=== PATIENT | male | born 1935 | race Caucasian/White ===

== ENCOUNTER 2016-10-14 05:49 | Inpatient (IN) | payer MEDICARE, OTHER ==
[2016-10-14] MEDS ORDERED: SODIUM CHLORIDE 0.9% 1,000 ML IV STA (05:55)
[2016-10-14] MEDS ORDERED: DIPH,PERTUS(ACELL)TETVAC-LF 0.5 ML VIAL IM ONE (05:57)
--- NOTE | 2016-10-14 06:04 | ED ---
Seizure HPI - General Source: EMS, RN notes reviewed Mode of arrival: EMS - History of Present Illness MD Complaint: seizure <Estuardo Crum - Last Filed: 10/14/16 06:36> <Marcos Beltran - Last Filed: 10/14/16 08:22> - General Stated Complaint: seizure Time Seen by Provider: 10/14/16 05:49 - History of Present Illness Initial Comments: This is a 81-year-old male with a known history of seizure disorder who apparently had a seizure lasting about 30 seconds but hour prior to admission. He is brought in for evaluation by EMS. He purely did slip off a culture he was on. Is unclear if is any trauma other than slipping off the couch. He did seem to be post ictal per the EMS crew for about 30 minutes and now starting to respond better. No reports of fevers chills or sweats patient states poor historian at this time information is limited. A medication list however was provided. The patient does have atrial fibrillation he is on warfarin and Dilantin (Estuardo Crum) - Related Data Home Medications Medication Instructions Recorded Confirmed Dutasteride [Avodart] 0.5 mg PO QAM 04/05/15 10/14/16 Tamsulosin HCl [Flomax] 0.4 mg PO HS 04/05/15 10/14/16 Phenytoin Sodium Extended 200 mg PO BID 05/29/15 10/14/16 [Dilantin] hydrALAZINE HCL [Apresoline] 100 mg PO TID 12/06/15 10/14/16 Metolazone 5 mg PO BID@0800,1200 01/18/16 10/14/16 Acetaminophen [Tylenol] 1,000 mg PO Q6H PRN 08/27/16 10/14/16 Allopurinol [Zyloprim] 100 mg PO DAILY 08/27/16 10/14/16 Bio-D Mulsion Forte 1 drop PO DAILY 08/27/16 10/14/16 Insulin NPH/Reg Insulin 70/30 See Protocol SQ AC-BID 08/27/16 10/14/16 [humuLIN 70/30 VIAL] Levothyroxine Sodium [Synthroid] 250 mcg PO DAILY 08/27/16 10/14/16 Metoprolol Tartrate [Lopressor] 25 mg PO DAILY 08/27/16 10/14/16 Sertraline [Zoloft] 25 mg PO HS PRN 08/27/16 10/14/16 Sodium Bicarbonate 325 mg PO DAILY 08/27/16 10/14/16 Aspirin EC [Ecotrin Low Dose] 81 mg PO DAILY 09/01/16 10/14/16 Valsartan 40 mg PO DAILY 09/01/16 10/14/16 Warfarin [Coumadin] 5 mg PO SUTUWEFRSA 09/01/16 10/14/16 ALPRAZolam [Xanax] 0.25 mg PO HS PRN 10/14/16 10/14/16 Famotidine [Pepcid] 40 mg PO BID 10/14/16 10/14/16 Furosemide [Lasix] 60 mg PO BID 10/14/16 10/14/16 Insulin NPH/Reg Insulin 70/30 6 unit SQ AC-LUNCH 10/14/16 10/14/16 [humuLIN 70/30 VIAL] Warfarin [Coumadin] 7.5 mg PO MOTH 10/14/16 10/14/16 clonazePAM [KlonoPIN] 0.5 mg PO HS PRN 10/14/16 10/14/16 Previous Rx's Medication Instructions Recorded Atorvastatin [Lipitor] 10 mg PO HS #90 tab 04/26/15 Allergies Allergy/AdvReac Type Severity Reaction Status Date / Time codeine AdvReac Confusion Verified 10/14/16 07:36 Review of Systems ROS Other: All systems not noted in ROS Statement are negative. Limitations: ROS unobtainable due to patients medical condition <Estuardo Crum - Last Filed: 10/14/16 06:36> ROS Other: All systems not noted in ROS Statement are negative. <Marcos Beltran - Last Filed: 10/14/16 08:22> ROS Statement: Those systems with pertinent positive or pertinent negative responses have been documented in the HPI. 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 Myelofibrosis, ET, and anemia of chronic kidney disease. Followed by Dr. Toth outpatient. Chronic kidney disease. TIA History of Any Multi-Drug Resistant Organisms: None Reported Past Surgical History: Hernia Repair, Pacemaker Additional Past Surgical History / Comment(s): [facility] HERNIA REPAIR, EWELINA CATARACTS. COLONOSCOPY, EGD.aortic VALVE REPLACEMENT and pacemaker done at [facility]. Past Anesthesia/Blood Transfusion Reactions: No Reported Reaction Additional Past Anesthesia/Blood Transfusion Reaction / Comment(s): TOOK A LONG TIME TO WAKE UP PER , clausterphobia Type of Cardiac Device: Permanent Pacemaker Device Placement Date:: 2014 Past Psychological History: Anxiety Smoking Status: Never smoker Past Alcohol Use History: None Reported Past Drug Use History: None Reported - Past Family History Mother Family Medical History: Chest Pain / Angina Additional Family Medical History / Comment(s): lived to be age 91 Father Family Medical History: Osteoarthritis (OA) Additional Family Medical History / Comment(s): lived to age 97 Brother(s) Family Medical History: Cancer Additional Family Medical History / Comment(s): leukemia Sister(s) History Unknown: Yes <Estuardo Crum - Last Filed: 10/14/16 06:36> General Exam Limitations: altered mental status General appearance: alert, lethargic Head exam: Present: normocephalic, other (Bruises seen to the right side of the face below the ear.) Eye exam: Present: normal appearance, PERRL, EOMI. Absent: scleral icterus, conjunctival injection, periorbital swelling ENT exam: Present: mucous membranes dry, other (There is a superficial abrasion on the right anterior tongue no active bleeding seen at this time) Neck exam: Present: normal inspection, full ROM. Absent: tenderness, meningismus, lymphadenopathy Respiratory exam: Present: normal lung sounds bilaterally. Absent: respiratory distress, wheezes, rales, rhonchi, stridor Cardiovascular Exam: Present: irregular rhythm GI/Abdominal exam: Present: soft, normal bowel sounds. Absent: distended, tenderness, guarding, rebound, rigid Rectal exam: Present: deferred Extremities exam: Present: normal capillary refill, pedal edema, other (Stasis dermatitis or is edema up to the knees there is ecchymosis seen to the posterior right lower extremity extending up into the buttock. Also some on the left. Abrasion to the right elbow. Additionally there is a superficial avulsion injury of the proximal left dorsal lateral finger no active bleeding currently.) Neurological exam: Present: altered, CN II-XII intact, reflexes normal. Absent : motor sensory deficit Psychiatric exam: Present: agitated Skin exam: Present: warm, dry. Absent: intact <Estuardo Crum - Last Filed: 10/14/16 06:36> <Marcos Beltran - Last Filed: 10/14/16 08:22> - General Exam Comments Initial Comments: This is a well-developed well-nourished confused male (RadamesEstuardo) Course <Estuardo Crum - Last Filed: 10/14/16 06:36> <Marcos Beltran - Last Filed: 10/14/16 08:22> Vital Signs 10/14/16 10/14/16 05:50 07:16 Temperature 97.7 F Pulse Rate 112 H 100 Respiratory 18 18 Rate Blood Pressure 151/69 124/59 O2 Sat by Pulse 94 L 94 L Oximetry - Reevaluation(s) Reevaluation #1: 10/14/16 06:34 Information from the patient's he's had the avulsion on his right elbow for about a week the last time his PT INR was checked was about 2 weeks ago. The patient's care will be endorsed to Dr. Beltran at our shift change. He will make the final disposition (Estuardo Crum) Medical Decision Making - EKG Data -: EKG Interpreted by Me (Atrial fibrillation with a rate of 107 QRS duration 164 daily since QTC of.) <Estuardo Crum - Last Filed: 10/14/16 06:36> - Lab Data Result diagrams: 10/14/16 06:38 10/14/16 06:38 - Radiology Data Radiology results: image reviewed (Chest x-ray shows some vascular congestion. Computed tomography scan of the brain shows no acute abnormality. No acute injury of the cervical spine. There is diffuse sclerosis, possible metastatic disease.) <Marcos Beltran - Last Filed: 10/14/16 08:22> - Medical Decision Making Patient reexamined and remains drowsy. Patient is oriented to name. updated on results and plan. Case was discussed in detail with Dr. Jaramillo, who will admit for Dr. Van. Dr. Farr will be consulted for hematology management and review of cervical spine films. CBC and renal function testing all appears chronic however might be somewhat deteriorated from normal. (Marcos Beltran) - Lab Data Lab Results 10/14/16 10/14/16 10/14/16 Range/Units 06:05 06:13 06:38 WBC (3.8-10.6) k/uL RBC (4.30-5.90) m/uL Hgb (13.0-17.5) gm/dL Hct (39.0-53.0) % MCV (80.0-100.0) fL MCH (25.0-35.0) pg MCHC (31.0-37.0) g/dL RDW (11.5-15.5) % Plt Count (150-450) k/uL Neutrophils % (Manual) % Band Neutrophils % % Lymphocytes % (Manual) % Monocytes % (Manual) % Eosinophils % (Manual) % Metamyelocytes % % Myelocytes % % Blast Cells % Neutrophils # (Manual) (1.3-7.7) k/uL Lymphocytes # (Manual) (1.0-4.8) k/uL Monocytes # (Manual) (0-1.0) k/uL Eosinophils # (Manual) (0-0.7) k/uL Nucleated RBCs (0-0) /100 WBC Manual Slide Review Polychromasia Hypochromasia Poikilocytosis Anisocytosis Macrocytosis Tear Drop Cells Fragmented RBCs PT 19.1 H (9.0-12.0) sec INR 2.0 (<1.1) APTT 32.2 H (22.0-30.0) sec Sodium (137-145) mmol/L Potassium (3.5-5.1) mmol/L Chloride (98-107) mmol/L Carbon Dioxide (22-30) mmol/L Anion Gap mmol/L BUN (9-20) mg/dL Creatinine (0.66-1.25) mg/dL Est GFR (MDRD) Af Amer (>60 ml/min/1.73 sqM) Est GFR (MDRD) Non-Af (>60 ml/min/1.73 sqM) Glucose (74-99) mg/dL POC Glucose (mg/dL) 147 H (75-99) mg/dL POC Glu Web Operations Administrator ID Sehlly Benson A Calcium (8.4-10.2) mg/dL Magnesium (1.6-2.3) mg/dL Total Bilirubin (0.2-1.3) mg/dL AST (17-59) U/L ALT (21-72) U/L Alkaline Phosphatase (38-126) U/L Total Creatine Kinase (55-170) U/L CK-MB (CK-2) (0.0-2.4) ng/mL CK-MB (CK-2) Rel Index Troponin I (0.000-0.034) ng/mL Total Protein (6.3-8.2) g/dL Albumin (3.5-5.0) g/dL TSH (0.465-4.680) mIU/L Urine Color Yellow Urine Appearance Turbid (Clear) Urine pH 6.5 (5.0-8.0) Ur Specific [place] 1.015 (1.001-1.035) Urine Protein 1+ H (Negative) Urine Glucose (UA) Negative (Negative) Urine Ketones Negative (Negative) Urine Blood Trace H (Negative) Urine Nitrate Negative (Negative) Urine Bilirubin Negative (Negative) Urine Urobilinogen <2.0 (<2.0) mg/dL Ur Leukocyte Esterase Large H (Negative) Urine WBC >182 H (0-5) /hpf Urine WBC Clumps Many H (None) /hpf Urine Opiates Screen Detected H (NotDetected) Ur Oxycodone Screen Not Detected (NotDetected) Urine Methadone Screen Not Detected (NotDetected) Ur Propoxyphene Screen Not Detected (NotDetected) Ur Barbiturates Screen Detected H (NotDetected) Phenytoin ug/mL U Tricyclic Antidepress Not Detected (NotDetected) Ur Phencyclidine Scrn Not Detected (NotDetected) Ur Amphetamines Screen Not Detected (NotDetected) U Methamphetamines Scrn Not Detected (NotDetected) U Benzodiazepines Scrn Not Detected (NotDetected) Urine Cocaine Screen Not Detected (NotDetected) U Marijuana (THC) Screen Not Detected (NotDetected) 10/14/16 10/14/16 10/14/16 Range/Units 06:38 06:38 06:38 WBC 69.8 H* (3.8-10.6) k/uL RBC 2.43 L (4.30-5.90) m/uL Hgb 7.7 L (13.0-17.5) gm/dL Hct 25.3 L (39.0-53.0) % MCV 104.1 H (80.0-100.0) fL MCH 31.5 (25.0-35.0) pg MCHC 30.3 L (31.0-37.0) g/dL RDW 24.4 H (11.5-15.5) % Plt Count 295 (150-450) k/uL Neutrophils % (Manual) 60.0 % Band Neutrophils % 1.5 % Lymphocytes % (Manual) 14.0 % Monocytes % (Manual) 14.0 % Eosinophils % (Manual) 1.0 % Metamyelocytes % 1.5 % Myelocytes % 5.0 % Blast Cells % 3.0 Neutrophils # (Manual) 42.9 H (1.3-7.7) k/uL Lymphocytes # (Manual) 9.8 H (1.0-4.8) k/uL Monocytes # (Manual) 9.8 H (0-1.0) k/uL Eosinophils # (Manual) 0.7 (0-0.7) k/uL Nucleated RBCs 0 (0-0) /100 WBC Manual Slide Review Performed Polychromasia Present Hypochromasia Moderate Poikilocytosis Slight Anisocytosis Marked Macrocytosis Marked Tear Drop Cells Present Fragmented RBCs Present PT (9.0-12.0) sec INR (<1.1) APTT (22.0-30.0) sec Sodium 137 (137-145) mmol/L Potassium 5.2 H (3.5-5.1) mmol/L Chloride 101 (98-107) mmol/L Carbon Dioxide 26 (22-30) mmol/L Anion Gap 10 mmol/L BUN 97 H* (9-20) mg/dL Creatinine 2.70 H (0.66-1.25) mg/dL Est GFR (MDRD) Af Amer 28 (>60 ml/min/1.73 sqM) Est GFR (MDRD) Non-Af 23 (>60 ml/min/1.73 sqM) Glucose 136 H (74-99) mg/dL POC Glucose (mg/dL) (75-99) mg/dL POC Glu Web Operations Administrator ID Calcium 8.6 (8.4-10.2) mg/dL Magnesium 2.3 (1.6-2.3) mg/dL Total Bilirubin 1.2 (0.2-1.3) mg/dL AST 47 (17-59) U/L ALT 41 (21-72) U/L Alkaline Phosphatase 180 H (38-126) U/L Total Creatine Kinase 44 L (55-170) U/L CK-MB (CK-2) 1.9 (0.0-2.4) ng/mL CK-MB (CK-2) Rel Index 4.3 Troponin I 0.022 (0.000-0.034) ng/mL Total Protein 5.9 L (6.3-8.2) g/dL Albumin 3.5 (3.5-5.0) g/dL TSH 3.140 (0.465-4.680) mIU/L Urine Color Urine Appearance (Clear) Urine pH (5.0-8.0) Ur Specific [place] (1.001-1.035) Urine Protein (Negative) Urine Glucose (UA) (Negative) Urine Ketones (Negative) Urine Blood (Negative) Urine Nitrate (Negative) Urine Bilirubin (Negative) Urine Urobilinogen (<2.0) mg/dL Ur Leukocyte Esterase (Negative) Urine WBC (0-5) /hpf Urine WBC Clumps (None) /hpf Urine Opiates Screen (NotDetected) Ur Oxycodone Screen (NotDetected) Urine Methadone Screen (NotDetected) Ur Propoxyphene Screen (NotDetected) Ur Barbiturates Screen (NotDetected) Phenytoin 4.7 ug/mL U Tricyclic Antidepress (NotDetected) Ur Phencyclidine Scrn (NotDetected) Ur Amphetamines Screen (NotDetected) U Methamphetamines Scrn (NotDetected) U Benzodiazepines Scrn (NotDetected) Urine Cocaine Screen (NotDetected) U Marijuana (THC) Screen (NotDetected) Disposition <Estuardo Crum - Last Filed: 10/14/16 06:36> <Marcos Beltran - Last Filed: 10/14/16 08:22> Clinical Impression: Generalized seizure, Postictal state Disposition: ADMITTED IP TO THIS HOSP
[2016-10-14 06:14] LABS: Glucose,Whole Blood 147 mg/dL (75-99)
[2016-10-14 06:46] LABS: Appearance,Urine Turbid (Clear); Bilirubin,Urine Negative (Negative); Glucose,Urine (UA) Negative (Negative); Ketones,Urine Negative (Negative); Leukocyte Esterase,Urine Large (Negative); Nitrite,Urine Negative (Negative); PH, Urine 6.5 (5.0-8.0); Particle Count 8145; Protein,Urine 1+ (Negative); Specific Gravity,Urine 1.015 (1.001-1.035); UA Billing (MACRO vs. MICRO) MICRO; Urobilinogen,Urine <2.0 mg/dL (<2.0); WBC,Urine >182 /hpf (0-5)
[2016-10-14 06:49] LABS: Anisocytosis Marked; CHCM 31.2; HCT 25.3 % (39.0-53.0); HDW 3.98; HGB 7.7 gm/dL (13.0-17.5); Hypochromasia Moderate; Immature Gran Flag Marked; MCH 31.5 pg (25.0-35.0); MCHC 30.3 g/dL (31.0-37.0); MCV 104.1 fL (80.0-100.0); Macrocytosis Marked; Mean Platelet Volume 10.2; Poikilocytosis Slight; RBC 2.43 m/uL (4.30-5.90); RDW 24.4 % (11.5-15.5); WBC (Perox) 69.82
[2016-10-14 06:50] LABS: WBC 69.8 k/uL (3.8-10.6)
[2016-10-14 06:55] LABS: Partial Thromboplastin Time 32.2 sec (22.0-30.0); Prothrombin Time 19.1 sec (9.0-12.0)
[2016-10-14 06:56] LABS: Calcium 8.6 mg/dL (8.4-10.2); Magnesium 2.3 mg/dL (1.6-2.3); Potassium 5.2 mmol/L (3.5-5.1); Total Bilirubin 1.2 mg/dL (0.2-1.3); Total Protein 5.9 g/dL (6.3-8.2)
[2016-10-14 07:15] LABS: Add Differential Manual Differential
[2016-10-14 07:17] LABS: Creatine Kinase MB 1.9 ng/mL (0.0-2.4); Troponin I 0.022 ng/mL (0.000-0.034)
[2016-10-14] MEDS ORDERED: PHENYTOIN SODIUM INJ 300 MG in SODIUM CHLORIDE 0.9% 50 ML IVPB STA (07:21)
[2016-10-14 07:24] LABS: Band Neutrophils % 1.5 %; Manual Review Performed; Metamyelocytes % 1.5 %; Nucleated Red Blood Cells 0 /100 WBC (0-0); Polychromasia Present; Total Cells Counted 200
[2016-10-14 07:26] LABS: Tear Drop Cells Present
--- NOTE | 2016-10-14 07:54 | CT ---
EXAMINATION TYPE: CT brain cspine wo con DATE OF EXAM: 10/14/2016 7:18 AM COMPARISON: CT brain December 10, 2015 HISTORY: Pt had seizure and fell off couch with headache and neck pain. CT DLP: brain 1058, Cervical 307.8 mGycm. Automated Exposure Control for Dose Reduction was Utilized. TECHNIQUE: CT scan of the head and cervical spine are performed without contrast. FINDINGS: There is no acute intracranial hemorrhage or midline shift identified. There is ventricul ar and sulcal prominence consistent with diffuse cerebral atrophy redemonstrated. There is low-attenu ation in the periventricular white matter presumed to be on basis of product of chronic small vessel ischemic change redemonstrated. The globes are intact and the visualized sinuses are clear. The julio cesar rium is intact. Cervical spine is visualized in its entirety from C1 through upper thoracic levels and demonstrates s traightened alignment without evidence of acute fracture or dislocation. Prevertebral soft tissue ap pears within normal limits. The C1-C2 articulation is within normal limits on the coronal images. Vertebral body heights are maintained. There is moderate to severe multilevel disc space narrowing wi th moderate multilevel spurring. Osseous structures are diffusely sclerotic with similar appearance s een on recent CT abdomen pelvis study. Diffuse osseous metastatic disease is not entirely excluded. T here is partial visualization of pacemaker wires. There is moderate diffuse subcutaneous edema. Sever e calcified plaque at carotid bulb level bilaterally is present. Visualized lungs show groundglass op acity raising concern for mild alveolar edema. IMPRESSION: 1. There is no acute fracture or dislocation evident in the cervical spine. Straightening with multil evel degenerative changes present. Diffuse sclerosis is noted, differential includes metastatic malig heidy, need to further investigate should be based on clinical correlation. 2. No acute intracranial hemorrhage or midline shift is seen. Moderate diffuse cerebral atrophy and c hronic small vessel ischemic change is redemonstrated.
--- NOTE | 2016-10-14 07:56 | XR ---
EXAMINATION TYPE: XR chest 1V portable DATE OF EXAM: 10/14/2016 7:13 AM COMPARISON: Chest x-ray August 27, 2016. HISTORY: Chest pain TECHNIQUE: Single frontal view of the chest is obtained. FINDINGS: There is cardiomegaly with dual lead pacemaker. Metallic aortic stent graft is redemonstrat ed near aortic root. Atherosclerotic change in aortic knob is again seen. There is poor inspiration o n current study with mild central vascular congestion. No large pleural effusion or pneumothorax is p resent. Osseous structures are intact. IMPRESSION: Consider CHF exacerbation as there is cardiomegaly with central vascular congestion felt present. Findings may be exaggerated by poor inspiration.
[2016-10-14] MEDS ORDERED: NALOXONE 0.4 MG/ML 1 ML VIAL IV PRN (08:23)
[2016-10-14] MEDS ORDERED: LORazepam 2 MG/ML SYRINGE IV PRN ×2 (08:23→12:50)
[2016-10-14] MEDS ORDERED: ALPRAZolam 0.25 MG TAB PO PRN (08:24)
[2016-10-14] MEDS ORDERED: PHENYTOIN SODIUM INJ 700 MG in SODIUM CHLORIDE 0.9% 100 ML IVPB STA (10:36)
[2016-10-14] MEDS: PHENYTOIN SODIUM EXTENDED 100 MG CAP PO SCH ×2 (11:37→22:19)
[2016-10-14 12:01] LABS: Glucose,Whole Blood 156 mg/dL (75-99)
--- NOTE | 2016-10-14 13:38 | P.HPIM ---
History of Present Illness H&P Date: 10/14/16 Chief Complaint: New seizure Patient is a 81-year-old male with known history of seizure disorder who had a seizure at home early in the morning today called EMS and patient was brought in to [facility]. He was evaluated in the emergency room he is maintained on Dilantin and his Dilantin level was low he was given a bolus of Dilantin and was admitted to medical floor for further evaluation and treatment neurology consultation was requested. There is a questionable fall from a couch where he was laying down per ER report, computed tomography scan of the head and cervical spine was done in the emergency room and there was no evidence of any fracture and no evidence of intracranial bleeding. Past Medical History Past Medical History: Atrial Fibrillation, Blood Disorder, Coronary Artery Disease (CAD), Heart Failure, Diabetes Mellitus, GERD/Reflux, Hyperlipidemia, Hypertension, Osteoarthritis (OA), Prostate Disorder, Renal Disease, Seizure Disorder Additional Past Medical History / Comment(s): Pt was recently admitted to [facility] on 08/2016 with abdominal ascities, bilateral lower extremity edema and cellulitis. 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 Myelofibrosis, chronic leukocytosis, chronic throbocytosis, anemia of chronic kidney disease stage III. History of Any Multi-Drug Resistant Organisms: None Reported Past Surgical History: Cardiac Valve Replacement, Hernia Repair, Pacemaker Additional Past Surgical History / Comment(s): 04/2015 [facility] HERNIA REPAIR, 2 BMA with bx, EWELINA CATARACTS removed with lens implants, COLONOSCOPY, EGD, aortic VALVE REPLACEMENT and pacemaker done at [facility]. Past Anesthesia/Blood Transfusion Reactions: No Reported Reaction Additional Past Anesthesia/Blood Transfusion Reaction / Comment(s): TOOK A LONG TIME TO WAKE UP PER , clausterphobia Type of Cardiac Device: Permanent Pacemaker Device Placement Date:: 2014 Past Psychological History: Anxiety Additional Psychological History / Comment(s): Pt resides with his spouse of 34yrs. He ambulates with a walker. He no longer drives, spouse takes him to appointments. He is establishing with [facility] in [place] for home care. Spouse works rehab department manager. Smoking Status: Never smoker Past Alcohol Use History: None Reported Past Drug Use History: None Reported - Past Family History Mother Family Medical History: Chest Pain / Angina Additional Family Medical History / Comment(s): lived to be age 91 Father Family Medical History: Osteoarthritis (OA) Additional Family Medical History / Comment(s): lived to age 97 Brother(s) Family Medical History: Cancer Additional Family Medical History / Comment(s): leukemia Sister(s) History Unknown: Yes Medications and Allergies Home Medications Medication Instructions Recorded Confirmed Type Dutasteride [Avodart] 0.5 mg PO QAM 04/05/15 10/14/16 History Tamsulosin HCl [Flomax] 0.4 mg PO HS 04/05/15 10/14/16 History Phenytoin Sodium Extended 200 mg PO BID 05/29/15 10/14/16 History [Dilantin] hydrALAZINE HCL [Apresoline] 100 mg PO TID 12/06/15 10/14/16 History Metolazone 5 mg PO BID@0800,1200 01/18/16 10/14/16 History Acetaminophen [Tylenol] 1,000 mg PO Q6H PRN 08/27/16 10/14/16 History Allopurinol [Zyloprim] 100 mg PO DAILY 08/27/16 10/14/16 History Bio-D Mulsion Forte 1 drop PO DAILY 08/27/16 10/14/16 History Insulin NPH/Reg Insulin 70/30 See Protocol SQ AC-BID 08/27/16 10/14/16 History [humuLIN 70/30 VIAL] Levothyroxine Sodium [Synthroid] 250 mcg PO DAILY 08/27/16 10/14/16 History Metoprolol Tartrate [Lopressor] 25 mg PO DAILY 08/27/16 10/14/16 History Sertraline [Zoloft] 25 mg PO HS PRN 08/27/16 10/14/16 History Sodium Bicarbonate 325 mg PO DAILY 08/27/16 10/14/16 History Aspirin EC [Ecotrin Low Dose] 81 mg PO DAILY 09/01/16 10/14/16 History Valsartan 40 mg PO DAILY 09/01/16 10/14/16 History Warfarin [Coumadin] 5 mg PO SUTUWEFRSA 09/01/16 10/14/16 History ALPRAZolam [Xanax] 0.25 mg PO HS PRN 10/14/16 10/14/16 History Famotidine [Pepcid] 40 mg PO BID 10/14/16 10/14/16 History Furosemide [Lasix] 60 mg PO BID 10/14/16 10/14/16 History Insulin NPH/Reg Insulin 70/30 6 unit SQ AC-LUNCH 10/14/16 10/14/16 History [humuLIN 70/30 VIAL] Warfarin [Coumadin] 7.5 mg PO MOTH 10/14/16 10/14/16 History clonazePAM [KlonoPIN] 0.5 mg PO HS PRN 10/14/16 10/14/16 History Allergies Allergy/AdvReac Type Severity Reaction Status Date / Time codeine AdvReac Confusion Verified 10/14/16 07:36 Physical Exam Vitals: Vital Signs Temp Pulse Pulse Resp BP BP Pulse Ox 10/14/16 12:01 97 F L 120 H 128/64 10/14/16 10:25 71 128/64 100 10/14/16 09:20 97.5 F L 93 18 108/59 94 L 10/14/16 08:36 97.9 F 100 18 123/73 95 Patient somnolant responsive only to repeated stimuli HEENT head normocephalic and atraumatic Neck is supple no JVD no goiter no lymphadenopathy Chest is clear to auscultation no crackles no wheezing Cardiac exam reveals regular heart sounds no gallops no murmurs Abdomen is soft nontender no organomegaly Extremity exam reveals minimal edema with bilateral pretibial faint erythema with multiple scabbing ulcers Results CBC & Chem 7: 10/14/16 06:38 10/14/16 06:38 Labs: Abnormal Lab Results - Last 24 Hours (Table) 10/14/16 Range/Units 11:57 POC Glucose (mg/dL) 156 H (75-99) mg/dL Thrombosis Risk Factor Assmnt - Choose All That Apply Any of the Below Risk Factors Present?: Yes Each Factor Represents 1 point: Medical pt on bed rest, Obesity (BMI >25) Other Risk Factors: Yes Each Risk Factor Represents 2 Points: Patient confined to bed Each Risk Factor Represents 3 Points: Age 75 years or older Other congenital or acquired thrombophilia - If yes, enter type in comment: No Thrombosis Risk Factor Assessment Total Risk Factor Score: 7 Thrombosis Risk Factor Assessment Level: High Risk Assessment and Plan Plan: #1 seizure activity in a patient with known history of seizure disorder maintained on Dilantin with low Dilantin level at 4.7 on presentation Patient is receiving IV Dilantin bolus will recheck Dilantin level this evening #2 underlying history of atrial fibrillation heart rate is well-controlled, patient was maintained on Coumadin at home for stroke prophylaxis his INR on presentation was therapeutic at 2.0 #3 chronic kidney disease stage IV followed as outpatient by Dr. Sebastian #4 hypertension well-controlled on current medication #5 severe pulmonary hypertension with bilateral lower extremity edema and ascites without any clear evidence of liver disease #[address] Toth #6 history of cardiac arrhythmia was previous history of permanent pacemaker placement At this time plan to continue was current management adjust Dilantin dose and keep patient on seizure precautions will follow closely
[2016-10-14 17:15] LABS: Glucose,Whole Blood 149 mg/dL (75-99)
[2016-10-14] MEDS: SODIUM CHLORIDE 0.9% 1,000 ML IV SCH (17:38)
--- NOTE | 2016-10-14 18:10 | P.CNNES ---
History of Present Illness Consult date: 10/14/16 History of Present Illness: The patient is a 81-year-old right-handed white male who had a breakthrough seizure this morning around 4:30 AM. His states that he fell off the couch and had a seizure. He was brought by EMS to [facility] and Dilantin level was drawn which was subtherapeutic and he was given 300 mg bolus of Dilantin. He continued to be lethargic and confused and at 10:30 AM he had a second generalized seizure. He was then given 700 mg of Dilantin bolus and he's been drowsy and somewhat agitated symptoms. The patient has a history of seizures since 2011 or . He had 2 seizures today and prior to that he had a seizure in August 2016. In August when he had that breakthrough seizure his Dilantin was increased from 400 g a day to 500 mg a day. The patient has been generally debilitated with multiple medical problems including renal failure congestive heart failure diabetes and anemia. He has been walking with a walker more recently. She is his states that he was not been walking well since his last seizure in August. She has been helping him at home with some walking exercises and last week he was capable of walking around with a walker. He did fall however when he did not use the walker. Review of Systems ROS unobtainable: due to mental status Past Medical History Past Medical History: Atrial Fibrillation, Blood Disorder, Coronary Artery Disease (CAD), Heart Failure, Diabetes Mellitus, GERD/Reflux, Hyperlipidemia, Hypertension, Osteoarthritis (OA), Prostate Disorder, Renal Disease, Seizure Disorder Additional Past Medical History / Comment(s): Pt was recently admitted to [facility] on 08/2016 with abdominal ascities, bilateral lower extremity edema and cellulitis. 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 Myelofibrosis, chronic leukocytosis, chronic throbocytosis, anemia of chronic kidney disease stage III. History of Any Multi-Drug Resistant Organisms: None Reported Past Surgical History: Cardiac Valve Replacement, Hernia Repair, Pacemaker Additional Past Surgical History / Comment(s): 04/2015 [facility] HERNIA REPAIR, 2 BMA with bx, EWELINA CATARACTS removed with lens implants, COLONOSCOPY, EGD, aortic VALVE REPLACEMENT and pacemaker done at [facility]. Past Anesthesia/Blood Transfusion Reactions: No Reported Reaction Additional Past Anesthesia/Blood Transfusion Reaction / Comment(s): TOOK A LONG TIME TO WAKE UP PER , clausterphobia Type of Cardiac Device: Permanent Pacemaker Device Placement Date:: 2014 Past Psychological History: Anxiety Additional Psychological History / Comment(s): Pt resides with his spouse of 34yrs. He ambulates with a walker. He no longer drives, spouse takes him to appointments. He is establishing with [facility] in [place] for home care. 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 Smoking Status: Never smoker Past Alcohol Use History: None Reported Past Drug Use History: None Reported - Past Family History Mother Family Medical History: Chest Pain / Angina Additional Family Medical History / Comment(s): lived to be age 91 Father Family Medical History: Osteoarthritis (OA) Additional Family Medical History / Comment(s): lived to age 97 Brother(s) Family Medical History: Cancer Additional Family Medical History / Comment(s): leukemia Sister(s) History Unknown: Yes Medications and Allergies Home Medications Medication Instructions Recorded Confirmed Type Dutasteride [Avodart] 0.5 mg PO QAM 04/05/15 10/14/16 History Tamsulosin HCl [Flomax] 0.4 mg PO HS 04/05/15 10/14/16 History Phenytoin Sodium Extended 200 mg PO BID 05/29/15 10/14/16 History [Dilantin] hydrALAZINE HCL [Apresoline] 100 mg PO TID 12/06/15 10/14/16 History Metolazone 5 mg PO BID@0800,1200 01/18/16 10/14/16 History Acetaminophen [Tylenol] 1,000 mg PO Q6H PRN 08/27/16 10/14/16 History Allopurinol [Zyloprim] 100 mg PO DAILY 08/27/16 10/14/16 History Bio-D Mulsion Forte 1 drop PO DAILY 08/27/16 10/14/16 History Insulin NPH/Reg Insulin 70/30 See Protocol SQ AC-BID 08/27/16 10/14/16 History [humuLIN 70/30 VIAL] Levothyroxine Sodium [Synthroid] 250 mcg PO DAILY 08/27/16 10/14/16 History Metoprolol Tartrate [Lopressor] 25 mg PO DAILY 08/27/16 10/14/16 History Sertraline [Zoloft] 25 mg PO HS PRN 08/27/16 10/14/16 History Sodium Bicarbonate 325 mg PO DAILY 08/27/16 10/14/16 History Aspirin EC [Ecotrin Low Dose] 81 mg PO DAILY 09/01/16 10/14/16 History Valsartan 40 mg PO DAILY 09/01/16 10/14/16 History Warfarin [Coumadin] 5 mg PO SUTUWEFRSA 09/01/16 10/14/16 History ALPRAZolam [Xanax] 0.25 mg PO HS PRN 10/14/16 10/14/16 History Famotidine [Pepcid] 40 mg PO BID 10/14/16 10/14/16 History Furosemide [Lasix] 60 mg PO BID 10/14/16 10/14/16 History Insulin NPH/Reg Insulin 70/30 6 unit SQ AC-LUNCH 10/14/16 10/14/16 History [humuLIN 70/30 VIAL] Warfarin [Coumadin] 7.5 mg PO MOTH 10/14/16 10/14/16 History clonazePAM [KlonoPIN] 0.5 mg PO HS PRN 10/14/16 10/14/16 History Allergies Allergy/AdvReac Type Severity Reaction Status Date / Time codeine AdvReac Confusion Verified 10/14/16 07:36 Physical Examination - Vital Signs Vital Signs: Vital Signs Temp Pulse Pulse Resp BP BP Pulse Ox 10/14/16 17:38 97.3 F L 65 18 137/74 10/14/16 17:08 97.7 F 20 136/63 10/14/16 16:58 96.9 F L 67 20 132/62 10/14/16 15:19 98.1 F 68 20 124/75 96 10/14/16 12:01 97 F L 120 H 128/64 10/14/16 10:25 71 128/64 100 10/14/16 09:20 97.5 F L 93 18 108/59 94 L 10/14/16 08:36 97.9 F 100 18 123/73 95 Intake and Output 10/14/16 10/14/16 10/14/16 06:59 14:59 22:59 Intake Total 0 Balance 0 Intake: Blood Product 0 Rc As-1 Unit 0 [id number] Other: # Voids 2 - Constitutional General appearance: average body habitus - Respiratory Respiratory: lungs clear - Cardiovascular Cardiovascular: regular rate - Integumentary Integumentary: erythema - Neurologic Cranial nerve examination: PERRL, face symmetric Detailed motor examination: grossly full strength in all extremities Results - Laboratory Findings CBC and BMP: 10/14/16 06:38 10/14/16 06:38 Abnormal Lab Findings: Abnormal Labs 10/14/16 10/14/16 11:57 17:09 POC Glucose (mg/dL) 156 H 149 H Assessment and Plan (1) Breakthrough seizure Status: Acute Code(s): G40.919 - EPILEPSY, UNSP, INTRACTABLE, WITHOUT STATUS EPILEPTICUS (2) Postictal state Status: Acute Code(s): R56.9 - UNSPECIFIED CONVULSIONS (3) Atrial fibrillation Status: Chronic Code(s): I48.91 - UNSPECIFIED ATRIAL FIBRILLATION (4) Anemia Status: Chronic Code(s): D64.9 - ANEMIA, UNSPECIFIED (5) Renal insufficiency Status: Chronic Code(s): N28.9 - DISORDER OF KIDNEY AND URETER, UNSPECIFIED Plan: The patient is a 81-year-old man with multiple medical problems who had a breakthrough seizure and had 2 grand mal seizures today. He is currently recovering in the postictal state. His Dilantin has been adjusted and he has been given out 1 g total bolus today. We'll check a free Dilantin level in a.m. patient had a CT of the brain which showed diffuse cerebral atrophy and chronic small vessel ischemic changes, recommend continue patient's current maintenance dose of Dilantin for now.
--- NOTE | 2016-10-14 19:04 | P.CONS ---
History of Present Illness - Reason for Consult Consult date: 10/14/16 anemia, leukocytosis, abnormal skeletal findings Requesting physician: Marcos Beltran - Chief Complaint seizure - History of Present Illness Jewel is well known to our practice. 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 He was treated with Hydrea, and subsequently Agrylin. He was treated with his PCP for a number of years. During this time PCP did stop agrylin due to progressive anemia, platelets counts stayed WNDL but he remained anemia. This persisted for about 2 years so pt was referred back to Dr. Toth. He had Bone Marrow study done revealing Myelofibrosis. He was intermittently transfused by PCP and was not seen by Dr. Toth for 1-2 more years. 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 Pt continued to follow up with our office since that time, and has had monitoring of his myelofibrosis, thrombocythemia and anemia. 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 He did well until Aug 2015 when he was at [facility] X 15 days for pacemaker and valve replacement. Since that time pt has gradually declined, his takes care of his ADLs. states pt was on cough when she hear a thud, she came out to check on him and he was on the flood, sliding about 2 1/2 feet to the floor, she states he was rigid, unresponsive, she times the seizure and it lasted about 30 seconds. When seen pt is lethargic and unable to fully cooperate with directions. He does not appear to be in any acute physical distress. Review of Systems ROS unobtainable: due to mental status Constitutional: Reports as per HPI Past Medical History Past Medical History: Atrial Fibrillation, Blood Disorder, Coronary Artery Disease (CAD), Heart Failure, Diabetes Mellitus, GERD/Reflux, Hyperlipidemia, Hypertension, Osteoarthritis (OA), Prostate Disorder, Renal Disease, Seizure Disorder Additional Past Medical History / Comment(s): Pt was recently admitted to [facility] on 08/2016 with abdominal ascities, bilateral lower extremity edema and cellulitis. 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 Myelofibrosis, chronic leukocytosis, chronic throbocytosis, anemia of chronic kidney disease stage III. History of Any Multi-Drug Resistant Organisms: None Reported Past Surgical History: Cardiac Valve Replacement, Hernia Repair, Pacemaker Additional Past Surgical History / Comment(s): 04/2015 [facility] HERNIA REPAIR, 2 BMA with bx, EWELINA CATARACTS removed with lens implants, COLONOSCOPY, EGD, aortic VALVE REPLACEMENT and pacemaker done at [facility]. Past Anesthesia/Blood Transfusion Reactions: No Reported Reaction Additional Past Anesthesia/Blood Transfusion Reaction / Comm: TOOK A LONG TIME TO WAKE UP PER , clausterphobia Type of Cardiac Device: Permanent Pacemaker Device Placement Date:: 2014 Past Psychological History: Anxiety Additional Psychological History / Comment(s): Pt resides with his spouse of 34yrs. He ambulates with a walker. He no longer drives, spouse takes him to appointments. He is establishing with [facility] in [place] for home care. Spouse works emergency department director. Smoking Status: Never smoker Past Alcohol Use History: None Reported Past Drug Use History: None Reported - Past Family History Mother Family Medical History: Chest Pain / Angina Additional Family Medical History / Comment(s): lived to be age 91 Father Family Medical History: Osteoarthritis (OA) Additional Family Medical History / Comment(s): lived to age 97 Brother(s) Family Medical History: Cancer Additional Family Medical History / Comment(s): leukemia Sister(s) History Unknown: Yes Medications and Allergies Home Medications Medication Instructions Recorded Confirmed Type Dutasteride [Avodart] 0.5 mg PO QAM 04/05/15 10/14/16 History Tamsulosin HCl [Flomax] 0.4 mg PO HS 04/05/15 10/14/16 History Phenytoin Sodium Extended 200 mg PO BID 05/29/15 10/14/16 History [Dilantin] hydrALAZINE HCL [Apresoline] 100 mg PO TID 12/06/15 10/14/16 History Metolazone 5 mg PO BID@0800,1200 01/18/16 10/14/16 History Acetaminophen [Tylenol] 1,000 mg PO Q6H PRN 08/27/16 10/14/16 History Allopurinol [Zyloprim] 100 mg PO DAILY 08/27/16 10/14/16 History Bio-D Mulsion Forte 1 drop PO DAILY 08/27/16 10/14/16 History Insulin NPH/Reg Insulin 70/30 See Protocol SQ AC-BID 08/27/16 10/14/16 History [humuLIN 70/30 VIAL] Levothyroxine Sodium [Synthroid] 250 mcg PO DAILY 08/27/16 10/14/16 History Metoprolol Tartrate [Lopressor] 25 mg PO DAILY 08/27/16 10/14/16 History Sertraline [Zoloft] 25 mg PO HS PRN 08/27/16 10/14/16 History Sodium Bicarbonate 325 mg PO DAILY 08/27/16 10/14/16 History Aspirin EC [Ecotrin Low Dose] 81 mg PO DAILY 09/01/16 10/14/16 History Valsartan 40 mg PO DAILY 09/01/16 10/14/16 History Warfarin [Coumadin] 5 mg PO SUTUWEFRSA 09/01/16 10/14/16 History ALPRAZolam [Xanax] 0.25 mg PO HS PRN 10/14/16 10/14/16 History Famotidine [Pepcid] 40 mg PO BID 10/14/16 10/14/16 History Furosemide [Lasix] 60 mg PO BID 10/14/16 10/14/16 History Insulin NPH/Reg Insulin 70/30 6 unit SQ AC-LUNCH 10/14/16 10/14/16 History [humuLIN 70/30 VIAL] Warfarin [Coumadin] 7.5 mg PO MOTH 10/14/16 10/14/16 History clonazePAM [KlonoPIN] 0.5 mg PO HS PRN 10/14/16 10/14/16 History Allergies Allergy/AdvReac Type Severity Reaction Status Date / Time codeine AdvReac Confusion Verified 10/14/16 07:36 Physical Exam Vitals: Vital Signs Temp Pulse Pulse Resp BP BP Pulse Ox 10/14/16 17:38 97.3 F L 65 18 137/74 10/14/16 17:08 97.7 F 20 136/63 10/14/16 16:58 96.9 F L 67 20 132/62 10/14/16 15:19 98.1 F 68 20 124/75 96 10/14/16 12:01 97 F L 120 H 128/64 10/14/16 10:25 71 128/64 100 10/14/16 09:20 97.5 F L 93 18 108/59 94 L 10/14/16 08:36 97.9 F 100 18 123/73 95 Intake and Output 10/14/16 10/14/16 10/14/16 06:59 14:59 22:59 Intake Total 0 Balance 0 Intake: Blood Product 0 Rc As-1 Unit 0 [id number] Other: # Voids 2 - Constitutional General appearance: average body habitus, no acute distress - Neck Neck: no lymphadenopathy - Respiratory Respiratory: bilateral: CTA - Cardiovascular Rhythm: irregularly irregular Heart sounds: normal: S1, S2 Abnormal Heart Sounds: systolic murmur - Gastrointestinal General gastrointestinal: no absent bowel sounds, no decreased bowel sounds, no distended, no hepatomegaly, no hyperactive bowel sounds, normal bowel sounds, no organomegaly, no rigid, no scaphoid, soft, splenomegaly, no tenderness, no umbilical hernia, no ventral hernia - Integumentary Multiple bruises in various stages of healing, skin tears form fall on right upper arm. Skin on BLE looks good compared to past observations, 2+ pitting edema but no open lesion or blisters, mild redness. - Neurologic Pt is lethargic, following some but not all instructions - Musculoskeletal Musculoskeletal: generalized weakness - Psychiatric Psychiatric: no A&O x's 3, no appropriate affect, no intact judgment & insight Results CBC & Chem 7: 10/14/16 06:38 10/14/16 06:38 Labs: Abnormal Lab Results - Last 24 Hours (Table) 10/14/16 10/14/16 Range/Units 11:57 17:09 POC Glucose (mg/dL) 156 H 149 H (75-99) mg/dL Comments: head and cervical spine CT report reviewed Assessment and Plan (1) Postictal state Narrative/Plan: Neurology consulted Status: Acute (2) Renal insufficiency Narrative/Plan: Acute on chronic. Nephrology consult may be appropriate if labs do not improve to baseline. Status: Chronic (3) Leukocytosis Narrative/Plan: Pt has chronic leukocytosis, mostly neutrophilia, runs between 30,000-45,000 range. The increase is likely due to acute illness and seizure. Will monitor, no acute intervention. Status: Chronic (4) Anemia due to chronic kidney disease treated with erythropoietin Narrative/Plan: Pt is due for procrit in 2 days, he received epo every other week with a Hgb maintained between 9-10, it will drop during episodes of acute illness or infections. 1 unit PRBCs will be ordered for transfusion. Status: Chronic (5) Myelofibrosis Narrative/Plan: The description of the bones on CT would be consistent with myelofibrosis. Pt CBC is stable for him, taking into consideration acute condition. Will monitor labs while inpatient but no acute interventions at this time. Status: Chronic
[2016-10-15] MEDS: SODIUM CHLORIDE 0.9% 1,000 ML IV SCH (10:14)
[2016-10-15] MEDS: PHENYTOIN SODIUM EXTENDED 100 MG CAP PO SCH ×2 (10:15→10:35)
[2016-10-15] MEDS ORDERED: PHENYTOIN SODIUM INJ 500 MG in SODIUM CHLORIDE 0.9% 100 ML IVPB STA (13:32)
[2016-10-15] MEDS: PHENYTOIN SODIUM INJ 50 MG/ML 2 ML VIAL IV SCH ×2 (13:36→21:28)
--- NOTE | 2016-10-15 14:38 | XR ---
EXAMINATION TYPE: XR Hip Complete RT DATE OF EXAM: 10/15/2016 2:05 PM COMPARISON: 08/15/2016 HISTORY: 81-year-old male with pain since fall 2 weeks ago TECHNIQUE: 2 views right hip FINDINGS: Extensive vascular calcifications are present and suggest underlying diabetes and her chronic kidney disease. There is moderate degenerative joint space narrowing and marginal spurring at the right hip. No acute fracture or dislocation. IMPRESSION: Moderate right hip osteoarthrosis. No acute osseous abnormality seen. Extensive vascular calcificatio n suggests underlying diabetes and/or chronic kidney disease.
[2016-10-15] MEDS ORDERED: NOREPINEPHRINE 16 MG-0.9% NS PMX 250 ML IV ONE (15:30)
[2016-10-15] MEDS ORDERED: CALCIUM CHLORIDE 100 MG/ML 10 ML SYRINGE ONE (15:30)
[2016-10-15] MEDS ORDERED: DEXTROSE 50%-WATER 50 ML SYRINGE IVP ONE ×2 (15:30→17:51)
[2016-10-15] MEDS ORDERED: SODIUM CHLORIDE 0.9% 1,000 ML BAG ONE (15:30)
[2016-10-15 16:17] LABS: Glucose,Whole Blood 39 mg/dL (75-99)
[2016-10-15 16:52] LABS: Glucose,Whole Blood 82 mg/dL (75-99)
[2016-10-15] MEDS ORDERED: PHENYLEPHRINE 40 MG in SODIUM CHLORIDE 0.9% 250 ML IV STA (16:58)
[2016-10-15] MEDS ORDERED: SODIUM BICARB 8.4% 50 ML SYR (1 MEQ/ML) IV STA (16:59)
[2016-10-15] MEDS ORDERED: PHENYLEPHRINE 40 MG in SODIUM CHLORIDE 0.9% 250 ML IV SCH (17:00)
--- NOTE | 2016-10-15 17:20 | XR ---
EXAMINATION TYPE: XR chest 1V DATE OF EXAM: 10/15/2016 5:11 PM CLINICAL HISTORY: Chest pain possible seizure. TECHNIQUE: Single AP portable supine frontal view of the chest is obtained. COMPARISON: Chest x-ray from one day earlier FINDINGS: There is new endotracheal tube with tip at aortic knob level, approximately 2 to 3 cm abov e the ramses. There is cardiomegaly with metallic stent graft at the aortic root and atherosclerotic and ectatic th oracic aorta. There is small left pleural effusion. There is mild to moderate central vascular conges tion redemonstrated. No pneumothorax is seen bilaterally. A dual lead pacemaker is redemonstrated. IMPRESSION: 1. New endotracheal tube slightly low in position, consider pulling back 3 cm. 2. Cardiomegaly with new small left pleural effusion and slight worsening of mild to moderate central vascular congestion, consider worsening CHF exacerbation.
--- NOTE | 2016-10-15 17:22 | ED ---
Medical Decision Making - Medical Decision Making I was called emergently to the floor as the patient had a cardiopulmonary arrest. He apparently was admitted for seizures and a subtherapeutic Dilantin level. He apparently had been getting his Dilantin intravenously when the nurse found that he was unconscious. He apparently did not have any pulse or spontaneous respirations. CPR and ACLS protocol was started prior to my arrival. The patient received CPR. The anesthesia team intubated the patient and there is excellent breath sounds bilaterally after intubation. The patient received multiple doses of epinephrine. CPR ensued for approximately 15-20 minutes when pulses were found. His blood pressure was initially normal but then gradually did decrease as well. He had 2 IVs established. He did receive some glucose as his blood sugar was low at approximately 39. He also received an amp of calcium chloride an amp of bicarbonate as his potassium was slightly elevated the day prior. Laboratory from the day prior was reviewed. He became hypotensive and a right subclavian central venous catheter/cordis was placed in the usual sterile fashion by myself. On no complications were encountered. The Levaquin drip was titrated up to 40 and his blood pressure still did remain hypotensive. A chest x-ray was done which does show good tube placement. The possibility of an infiltrate in the right upper lobe is possible. He also had a G[place]am catheter placed and this did show a lot of sediment in the urine with possible infection. The was updated on 2 occasions. The case was discussed with Dr. Jaramillo and 2 occasions. The case was discussed with the ICU physician and further care is passed off to the ICU team. Additional blood work and EKG were ordered and are pending. The exact cause of his arrest is not definitively determined. It is felt that he is critically ill with a guarded prognosis. The is aware. - Lab Data Result diagrams: 10/14/16 06:38 10/14/16 06:38 Lab Results 10/14/16 10/14/16 10/14/16 Range/Units 06:05 06:13 06:36 WBC (3.8-10.6) k/uL RBC (4.30-5.90) m/uL Hgb (13.0-17.5) gm/dL Hct (39.0-53.0) % MCV (80.0-100.0) fL MCH (25.0-35.0) pg MCHC (31.0-37.0) g/dL RDW (11.5-15.5) % Plt Count (150-450) k/uL Neutrophils % (Manual) % Band Neutrophils % % Lymphocytes % (Manual) % Monocytes % (Manual) % Eosinophils % (Manual) % Metamyelocytes % % Myelocytes % % Blast Cells % Neutrophils # (Manual) (1.3-7.7) k/uL Lymphocytes # (Manual) (1.0-4.8) k/uL Monocytes # (Manual) (0-1.0) k/uL Eosinophils # (Manual) (0-0.7) k/uL Nucleated RBCs (0-0) /100 WBC Manual Slide Review Polychromasia Hypochromasia Poikilocytosis Anisocytosis Macrocytosis Tear Drop Cells Fragmented RBCs PT (9.0-12.0) sec INR (<1.1) APTT (22.0-30.0) sec Sodium (137-145) mmol/L Potassium (3.5-5.1) mmol/L Chloride (98-107) mmol/L Carbon Dioxide (22-30) mmol/L Anion Gap mmol/L BUN (9-20) mg/dL Creatinine (0.66-1.25) mg/dL Est GFR (MDRD) Af Amer (>60 ml/min/1.73 sqM) Est GFR (MDRD) Non-Af (>60 ml/min/1.73 sqM) Glucose (74-99) mg/dL POC Glucose (mg/dL) 147 H (75-99) mg/dL POC Glu Process Inspector ID Shelly Benson A Calcium (8.4-10.2) mg/dL Magnesium (1.6-2.3) mg/dL Total Bilirubin (0.2-1.3) mg/dL AST (17-59) U/L ALT (21-72) U/L Alkaline Phosphatase (38-126) U/L Total Creatine Kinase (55-170) U/L CK-MB (CK-2) (0.0-2.4) ng/mL CK-MB (CK-2) Rel Index Troponin I (0.000-0.034) ng/mL NT-Pro-B Natriuret Pep pg/mL Total Protein (6.3-8.2) g/dL Albumin (3.5-5.0) g/dL TSH (0.465-4.680) mIU/L Urine Color Yellow Urine Appearance Turbid (Clear) Urine pH 6.5 (5.0-8.0) Ur Specific [place] 1.015 (1.001-1.035) Urine Protein 1+ H (Negative) Urine Glucose (UA) Negative (Negative) Urine Ketones Negative (Negative) Urine Blood Trace H (Negative) Urine Nitrate Negative (Negative) Urine Bilirubin Negative (Negative) Urine Urobilinogen <2.0 (<2.0) mg/dL Ur Leukocyte Esterase Large H (Negative) Urine WBC >182 H (0-5) /hpf Urine WBC Clumps Many H (None) /hpf Urine Opiates Screen Detected H (NotDetected) Ur Oxycodone Screen Not Detected (NotDetected) Urine Methadone Screen Not Detected (NotDetected) Ur Propoxyphene Screen Not Detected (NotDetected) Ur Barbiturates Screen Detected H (NotDetected) Phenytoin ug/mL U Tricyclic Antidepress Not Detected (NotDetected) Ur Phencyclidine Scrn Not Detected (NotDetected) Ur Amphetamines Screen Not Detected (NotDetected) U Methamphetamines Scrn Not Detected (NotDetected) U Benzodiazepines Scrn Not Detected (NotDetected) Urine Cocaine Screen Not Detected (NotDetected) U Marijuana (THC) Screen Not Detected (NotDetected) Blood Type A Positive Blood Type Recheck No Antibody Screen NEGATIVE Crossmatch See Detail Spec Expiration Date 10/17/2016 - 233510/14/16 10/14/16 10/14/16 Range/Units 06:38 06:38 06:38 WBC 69.8 H* (3.8-10.6) k/uL RBC 2.43 L (4.30-5.90) m/uL Hgb 7.7 L (13.0-17.5) gm/dL Hct 25.3 L (39.0-53.0) % MCV 104.1 H (80.0-100.0) fL MCH 31.5 (25.0-35.0) pg MCHC 30.3 L (31.0-37.0) g/dL RDW 24.4 H (11.5-15.5) % Plt Count 295 (150-450) k/uL Neutrophils % (Manual) 60.0 % Band Neutrophils % 1.5 % Lymphocytes % (Manual) 14.0 % Monocytes % (Manual) 14.0 % Eosinophils % (Manual) 1.0 % Metamyelocytes % 1.5 % Myelocytes % 5.0 % Blast Cells % 3.0 Neutrophils # (Manual) 42.9 H (1.3-7.7) k/uL Lymphocytes # (Manual) 9.8 H (1.0-4.8) k/uL Monocytes # (Manual) 9.8 H (0-1.0) k/uL Eosinophils # (Manual) 0.7 (0-0.7) k/uL Nucleated RBCs 0 (0-0) /100 WBC Manual Slide Review Performed Polychromasia Present Hypochromasia Moderate Poikilocytosis Slight Anisocytosis Marked Macrocytosis Marked Tear Drop Cells Present Fragmented RBCs Present PT 19.1 H (9.0-12.0) sec INR 2.0 (<1.1) APTT 32.2 H (22.0-30.0) sec Sodium 137 (137-145) mmol/L Potassium 5.2 H (3.5-5.1) mmol/L Chloride 101 (98-107) mmol/L Carbon Dioxide 26 (22-30) mmol/L Anion Gap 10 mmol/L BUN 97 H* (9-20) mg/dL Creatinine 2.70 H (0.66-1.25) mg/dL Est GFR (MDRD) Af Amer 28 (>60 ml/min/1.73 sqM) Est GFR (MDRD) Non-Af 23 (>60 ml/min/1.73 sqM) Glucose 136 H (74-99) mg/dL POC Glucose (mg/dL) (75-99) mg/dL POC Glu Process Inspector ID Calcium 8.6 (8.4-10.2) mg/dL Magnesium 2.3 (1.6-2.3) mg/dL Total Bilirubin 1.2 (0.2-1.3) mg/dL AST 47 (17-59) U/L ALT 41 (21-72) U/L Alkaline Phosphatase 180 H (38-126) U/L Total Creatine Kinase (55-170) U/L CK-MB (CK-2) (0.0-2.4) ng/mL CK-MB (CK-2) Rel Index Troponin I (0.000-0.034) ng/mL NT-Pro-B Natriuret Pep pg/mL Total Protein 5.9 L (6.3-8.2) g/dL Albumin 3.5 (3.5-5.0) g/dL TSH 3.140 (0.465-4.680) mIU/L Urine Color Urine Appearance (Clear) Urine pH (5.0-8.0) Ur Specific [place] (1.001-1.035) Urine Protein (Negative) Urine Glucose (UA) (Negative) Urine Ketones (Negative) Urine Blood (Negative) Urine Nitrate (Negative) Urine Bilirubin (Negative) Urine Urobilinogen (<2.0) mg/dL Ur Leukocyte Esterase (Negative) Urine WBC (0-5) /hpf Urine WBC Clumps (None) /hpf Urine Opiates Screen (NotDetected) Ur Oxycodone Screen (NotDetected) Urine Methadone Screen (NotDetected) Ur Propoxyphene Screen (NotDetected) Ur Barbiturates Screen (NotDetected) Phenytoin 4.7 ug/mL U Tricyclic Antidepress (NotDetected) Ur Phencyclidine Scrn (NotDetected) Ur Amphetamines Screen (NotDetected) U Methamphetamines Scrn (NotDetected) U Benzodiazepines Scrn (NotDetected) Urine Cocaine Screen (NotDetected) U Marijuana (THC) Screen (NotDetected) Blood Type Blood Type Recheck Antibody Screen Crossmatch Spec Expiration Date 10/14/16 10/14/16 Range/Units 06:38 06:38 WBC (3.8-10.6) k/uL RBC (4.30-5.90) m/uL Hgb (13.0-17.5) gm/dL Hct (39.0-53.0) % MCV (80.0-100.0) fL MCH (25.0-35.0) pg MCHC (31.0-37.0) g/dL RDW (11.5-15.5) % Plt Count (150-450) k/uL Neutrophils % (Manual) % Band Neutrophils % % Lymphocytes % (Manual) % Monocytes % (Manual) % Eosinophils % (Manual) % Metamyelocytes % % Myelocytes % % Blast Cells % Neutrophils # (Manual) (1.3-7.7) k/uL Lymphocytes # (Manual) (1.0-4.8) k/uL Monocytes # (Manual) (0-1.0) k/uL Eosinophils # (Manual) (0-0.7) k/uL Nucleated RBCs (0-0) /100 WBC Manual Slide Review Polychromasia Hypochromasia Poikilocytosis Anisocytosis Macrocytosis Tear Drop Cells Fragmented RBCs PT (9.0-12.0) sec INR (<1.1) APTT (22.0-30.0) sec Sodium (137-145) mmol/L Potassium (3.5-5.1) mmol/L Chloride (98-107) mmol/L Carbon Dioxide (22-30) mmol/L Anion Gap mmol/L BUN (9-20) mg/dL Creatinine (0.66-1.25) mg/dL Est GFR (MDRD) Af Amer (>60 ml/min/1.73 sqM) Est GFR (MDRD) Non-Af (>60 ml/min/1.73 sqM) Glucose (74-99) mg/dL POC Glucose (mg/dL) (75-99) mg/dL POC Glu Process Inspector ID Calcium (8.4-10.2) mg/dL Magnesium (1.6-2.3) mg/dL Total Bilirubin (0.2-1.3) mg/dL AST (17-59) U/L ALT (21-72) U/L Alkaline Phosphatase (38-126) U/L Total Creatine Kinase 44 L (55-170) U/L CK-MB (CK-2) 1.9 (0.0-2.4) ng/mL CK-MB (CK-2) Rel Index 4.3 Troponin I 0.022 (0.000-0.034) ng/mL NT-Pro-B Natriuret Pep 87353 pg/mL Total Protein (6.3-8.2) g/dL Albumin (3.5-5.0) g/dL TSH (0.465-4.680) mIU/L Urine Color Urine Appearance (Clear) Urine pH (5.0-8.0) Ur Specific [place] (1.001-1.035) Urine Protein (Negative) Urine Glucose (UA) (Negative) Urine Ketones (Negative) Urine Blood (Negative) Urine Nitrate (Negative) Urine Bilirubin (Negative) Urine Urobilinogen (<2.0) mg/dL Ur Leukocyte Esterase (Negative) Urine WBC (0-5) /hpf Urine WBC Clumps (None) /hpf Urine Opiates Screen (NotDetected) Ur Oxycodone Screen (NotDetected) Urine Methadone Screen (NotDetected) Ur Propoxyphene Screen (NotDetected) Ur Barbiturates Screen (NotDetected) Phenytoin ug/mL U Tricyclic Antidepress (NotDetected) Ur Phencyclidine Scrn (NotDetected) Ur Amphetamines Screen (NotDetected) U Methamphetamines Scrn (NotDetected) U Benzodiazepines Scrn (NotDetected) Urine Cocaine Screen (NotDetected) U Marijuana (THC) Screen (NotDetected) Blood Type Blood Type Recheck Antibody Screen Crossmatch Spec Expiration Date Disposition Clinical Impression: Generalized seizure, Postictal state Disposition: ADMITTED IP TO THIS HOSP
[2016-10-15 17:49] LABS: Glucose,Whole Blood 50 mg/dL (75-99)
[2016-10-15] MEDS: DEXTROSE 5% IN WATER 1,000 ML with SODIUM BICARB (1 MEQ/ML) 150 ML IV SCH (17:51)
[2016-10-15] MEDS ORDERED: WARFARIN 7.5 MG TAB PO ONE (18:00)
[2016-10-15 18:11] LABS: ABG Base Excess -11.7 mmol/L; ABG HCO3 15 mmol/L (21-25); ABG PCO2 44 mmHg (35-45); ABG PH 7.17 (7.35-7.45); ABG PO2 249 mmHg (83-108); ABG TCO2 17 mmol/L (19-24)
[2016-10-15 18:12] LABS: Calcium 8.4 mg/dL (8.4-10.2); Potassium 6.1 mmol/L (3.5-5.1)
--- NOTE | 2016-10-15 18:15 | P.PN ---
Subjective Principal diagnosis: seizure disorder Patient is a 81 year old male with known history of seizure disorder maintained on Dilantin who was admitted to [facility] due to new seizure activity, Dilantin level on presentation was subtherapeutic, computed tomography scan of the brain did not reveal any evidence of intracranial bleeding. Family is giving a history of fall off a couch about 10 days ago. Patient was seen by neurology he has been receiving IV Dilantin boluses. Objective - Vital Signs Vital signs: Vital Signs Temp 97.3 F L 10/15/16 15:00 Pulse 55 L 10/15/16 15:00 Resp 18 10/15/16 15:00 BP 129/61 10/15/16 15:00 Pulse Ox 95 10/15/16 15:00 Intake & Output 10/14/16 10/15/16 10/15/16 18:59 06:59 18:59 Intake Total 0 390 Balance 0 390 Weight 81.647 kg 81.647 kg Intake: IV 80 Sodium Chloride 0.9% 1, 80 000 ml @ 20 mls/hr IV . Q24H ERICH Rx#:[id number] Blood Product 0 310 Rc As-1 Unit 0 310 [id number] Other: Voiding Method Diaper Diaper Diaper Incontinent Incontinent # Voids 2 2 3 - Exam In general patient is somnolent and arousable in no apparent distress HEENT without any acute abnormality Neck is supple no JVD no goiter no lymphadenopathy Chest exam reveals a few scattered crackles bilaterally no wheezing Cardiac exam reveals regular heart sounds no gallops no murmurs Abdomen is soft nontender no organomegaly Extremity exam reveals no edema no cyanosis or clubbing there is a large bruise over the right hip area - Labs CBC & Chem 7: 10/14/16 06:38 10/14/16 06:38 Labs: Abnormal Lab Results - Last 24 Hours (Table) 10/15/16 10/15/16 Range/Units 16:07 17:47 POC Glucose (mg/dL) 39 L 50 L (75-99) mg/dL Assessment and Plan Plan: #1 seizure activity in a patient with known history of seizure disorder maintained on Dilantin with low Dilantin level at 4.7 on presentation Patient is receiving IV Dilantin bolus will recheck Dilantin level this evening #2 underlying history of atrial fibrillation heart rate is well-controlled, patient was maintained on Coumadin at home for stroke prophylaxis his INR on presentation was therapeutic at 2.0 #3 chronic kidney disease stage IV followed as outpatient by Dr. Barnhart #4 hypertension well-controlled on current medication #5 severe pulmonary hypertension with bilateral lower extremity edema and ascites without any clear evidence of liver disease #[address] Toth #7 history of cardiac arrhythmia was previous history of permanent pacemaker placement #8 recent fall, was bruising around the right hip area Will obtain x-ray of the right hip At this time plan to continue was current management adjust Dilantin dose and keep patient on seizure precautions will follow closely
[2016-10-15 18:17] LABS: Glucose,Whole Blood 107 mg/dL (75-99)
[2016-10-15 18:21] LABS: Anisocytosis Moderate; Aty Lym Flag Slight; CH 30.7; CHCM 27.4; HCT 27.9 % (39.0-53.0); HDW 3.71; HGB 7.6 gm/dL (13.0-17.5); Hypochromasia Marked; Immature Gran Flag Marked; MCH 30.9 pg (25.0-35.0); Macrocytosis Marked; Mean Platelet Volume 9.7; Poikilocytosis Slight; RBC 2.46 m/uL (4.30-5.90); RDW 23.6 % (11.5-15.5); WBC (Perox) 94.41
[2016-10-15 18:22] LABS: MCHC 27.2 g/dL (31.0-37.0)
[2016-10-15 18:23] LABS: MCV 113.5 fL (80.0-100.0)
[2016-10-15 18:28] LABS: Partial Thromboplastin Time 38.1 sec (22.0-30.0); Prothrombin Time 58.6 sec (9.0-12.0)
[2016-10-15 18:34] LABS: INR 5.8 (<1.1)
[2016-10-15 18:36] LABS: Creatine Kinase MB 3.5 ng/mL (0.0-2.4); Troponin I 0.312 ng/mL (0.000-0.034)
[2016-10-15] MEDS ORDERED: SODIUM CHLORIDE 0.9% 1,000 ML IV ONE (18:55)
[2016-10-15 19:01] LABS: Add Differential Manual Differential
[2016-10-15 19:14] LABS: Band Neutrophils % 13.5 %; Metamyelocytes % 5.5 %; Myelocytes % 10.5 %; Nucleated Red Blood Cells 15 /100 WBC (0-0); Total Cells Counted 200
[2016-10-15] MEDS ORDERED: CALCIUM GLUCONATE 1,000 MG in SODIUM CHLORIDE 0.9% 100 ML IVPB ONE ×2 (19:14→22:52)
[2016-10-15 19:16] LABS: WBC 82.3 k/uL (3.8-10.6)
[2016-10-15 19:24] LABS: Manual Review Performed; Spherocytes Present
[2016-10-15 19:25] LABS: Large Platelets Present; Ovalocytes Present; Polychromasia Present; Tear Drop Cells Present
[2016-10-15] MEDS: PHYTONADIONE 5 MG in SODIUM CHLORIDE 0.9% 50 ML IVPB STA ×2 (19:33→21:27)
[2016-10-15] MEDS: IPRATROPIUM-ALBUTEROL 3 ML NEB INHALATION SCH (19:38)
--- NOTE | 2016-10-15 19:41 | P.PN ---
Subjective + This patient is a 81-year-old right-handed white male initially admitted to hospital for seizure disorder and subtherapeutic Dilantin level. Patient had an acute cardiopulmonary arrest on the medical floor and was intubated and transferred to the intensive care unit this evening. Patient is seen in the ICU this evening. He is intubated on the ventilator. Patient's downtime is estimated to be about 15 minutes before pulse was obtained. Patient was sent for repeat computed tomography scan of the brain this evening the results of which are still pending. We would like to rule out any possibility of acute intracerebral hemorrhage for this patient who is on anticoagulation. Case was discussed with the ICU nurse and he'll be sent for computed tomography scan of the brain this evening on a urgent basis. The patient remains intubated on the ventilator. His pupils are small and unreactive at this time. He does withdraw to painful stimuli overall extremities. His Dilantin level today was slightly subtherapeutic at 6.1. We will await and get a repeat Dilantin level tomorrow morning and adjust his dose is needed. The patient shows very little response in the ICU at this time. He likely has some degree of anoxic encephalopathy following cardiac arrest. We will continue to follow his progress closely in the intensive care unit. Objective - Vital Signs Vital signs: Vital Signs Temp 97.3 F L 10/15/16 15:00 Pulse 55 L 10/15/16 15:00 Resp 18 10/15/16 15:00 BP 129/61 10/15/16 15:00 Pulse Ox 95 10/15/16 15:00 Intake & Output 10/15/16 10/15/16 10/16/16 06:59 18:59 06:59 Intake Total 390 Balance 390 Weight 81.647 kg Intake: IV 80 Sodium Chloride 0.9% 1, 80 000 ml @ 20 mls/hr IV . Q24H ERICH Rx#:[id number] Blood Product 310 Rc As-1 Unit 310 [id number] Other: Voiding Method Diaper Diaper Incontinent Incontinent # Voids 2 3 - Exam Physical examination: PHYSICAL EXAMINATION: Patient is resting comfortably in bed. Patient is intubated on the ventilator in the ICU. VITAL SIGNS: Blood pressure is []. Heart rate is []. Respiration is []. Temperature is []. HEENT: Head is atraumatic, neck is supple, there were no carotid bruits. CHEST: Lungs are clear to auscultation and percussion. CARDIAC: S1, S2 normal rate and rhythm. There is no murmur. ABDOMEN: Soft and nontender. Bowel sounds are present. EXTREMITIES: There is no pedal edema. Peripheral pulses are present. Neurological examination: Patient is intubated on the ventilator and is unresponsive at this time. He does withdraw to painful stimuli. Pupils are 2 mm sluggishly reactive to light. Corneal response diminished bilaterally. Patient withdraws to painful stimuli and nail bed pressure. Deep tendon reflexes are hypoactive 1+. Plantar response is flexor bilaterally. - Labs CBC & Chem 7: 10/15/16 17:45 10/15/16 17:45 Labs: Abnormal Lab Results - Last 24 Hours (Table) 10/15/16 10/15/16 10/15/16 Range/Units 16:07 16:46 17:45 WBC (3.8-10.6) k/uL RBC (4.30-5.90) m/uL Hgb (13.0-17.5) gm/dL Hct (39.0-53.0) % MCV (80.0-100.0) fL MCHC (31.0-37.0) g/dL RDW (11.5-15.5) % Neutrophils # (Manual) (1.3-7.7) k/uL Monocytes # (Manual) (0-1.0) k/uL Nucleated RBCs (0-0) /100 WBC PT (9.0-12.0) sec INR (<1.1) APTT (22.0-30.0) sec ABG pH 7.17 L* (7.35-7.45) ABG pO2 249 H (83-108) mmHg ABG HCO3 15 L (21-25) mmol/L ABG Total CO2 17 L (19-24) mmol/L ABG O2 Saturation 100.0 H (94-97) % Sodium 146 H (137-145) mmol/L Potassium 6.1 H (3.5-5.1) mmol/L Carbon Dioxide 13 L (22-30) mmol/L BUN 101 H* (9-20) mg/dL Creatinine 3.53 H (0.66-1.25) mg/dL Glucose 45 L* (74-99) mg/dL POC Glucose (mg/dL) 39 L (75-99) mg/dL Plasma Lactic Acid Bernard (0.7-2.0) mmol/L Total Bilirubin 2.0 H (0.2-1.3) mg/dL AST 755 H (17-59) U/L ALT 202 H (21-72) U/L Alkaline Phosphatase 171 H (38-126) U/L Total Creatine Kinase (55-170) U/L CK-MB (CK-2) (0.0-2.4) ng/mL Troponin I (0.000-0.034) ng/mL Total Protein 6.0 L (6.3-8.2) g/dL 10/15/16 10/15/16 10/15/16 Range/Units 17:45 17:45 17:45 WBC 82.3 H* (3.8-10.6) k/uL RBC 2.46 L (4.30-5.90) m/uL Hgb 7.6 L (13.0-17.5) gm/dL Hct 27.9 L (39.0-53.0) % MCV 113.5 H D (80.0-100.0) fL MCHC 27.2 L (31.0-37.0) g/dL RDW 23.6 H (11.5-15.5) % Neutrophils # (Manual) 50.6 H (1.3-7.7) k/uL Monocytes # (Manual) 2.9 H (0-1.0) k/uL Nucleated RBCs 15 H (0-0) /100 WBC PT 58.6 H (9.0-12.0) sec INR 5.8 H* (<1.1) APTT 38.1 H (22.0-30.0) sec ABG pH (7.35-7.45) ABG pO2 (83-108) mmHg ABG HCO3 (21-25) mmol/L ABG Total CO2 (19-24) mmol/L ABG O2 Saturation (94-97) % Sodium (137-145) mmol/L Potassium (3.5-5.1) mmol/L Carbon Dioxide (22-30) mmol/L BUN (9-20) mg/dL Creatinine (0.66-1.25) mg/dL Glucose (74-99) mg/dL POC Glucose (mg/dL) (75-99) mg/dL Plasma Lactic Acid Bernard (0.7-2.0) mmol/L Total Bilirubin (0.2-1.3) mg/dL AST (17-59) U/L ALT (21-72) U/L Alkaline Phosphatase (38-126) U/L Total Creatine Kinase 282 H (55-170) U/L CK-MB (CK-2) 3.5 H* (0.0-2.4) ng/mL Troponin I 0.312 H* (0.000-0.034) ng/mL Total Protein (6.3-8.2) g/dL 10/15/16 10/15/16 10/15/16 Range/Units 17:45 17:47 18:13 WBC (3.8-10.6) k/uL RBC (4.30-5.90) m/uL Hgb (13.0-17.5) gm/dL Hct (39.0-53.0) % MCV (80.0-100.0) fL MCHC (31.0-37.0) g/dL RDW (11.5-15.5) % Neutrophils # (Manual) (1.3-7.7) k/uL Monocytes # (Manual) (0-1.0) k/uL Nucleated RBCs (0-0) /100 WBC PT (9.0-12.0) sec INR (<1.1) APTT (22.0-30.0) sec ABG pH (7.35-7.45) ABG pO2 (83-108) mmHg ABG HCO3 (21-25) mmol/L ABG Total CO2 (19-24) mmol/L ABG O2 Saturation (94-97) % Sodium (137-145) mmol/L Potassium (3.5-5.1) mmol/L Carbon Dioxide (22-30) mmol/L BUN (9-20) mg/dL Creatinine (0.66-1.25) mg/dL Glucose (74-99) mg/dL POC Glucose (mg/dL) 50 L 107 H (75-99) mg/dL Plasma Lactic Acid Bernard 14.5 H* (0.7-2.0) mmol/L Total Bilirubin (0.2-1.3) mg/dL AST (17-59) U/L ALT (21-72) U/L Alkaline Phosphatase (38-126) U/L Total Creatine Kinase (55-170) U/L CK-MB (CK-2) (0.0-2.4) ng/mL Troponin I (0.000-0.034) ng/mL Total Protein (6.3-8.2) g/dL Assessment and Plan (1) Cardiopulmonary arrest Status: Acute Code(s): I46.9 - CARDIAC ARREST, CAUSE UNSPECIFIED (2) Breakthrough seizure Status: Acute Code(s): G40.919 - EPILEPSY, UNSP, INTRACTABLE, WITHOUT STATUS EPILEPTICUS Plan: This patient is a 81-year-old male who had a witnessed cardiopulmonary arrest. His down time is estimated to be about 15 minutes in duration. He was intubated and transferred to the intensive care unit. We will have a repeat EEG tomorrow for further evaluation of severe anoxic encephalopathy following cardiac arrest. He is to continue on his current dose of Dilantin. We will recheck a Dilantin level tomorrow morning and just his dose as needed. His overall prognosis at this time remains very guarded. Depending on the EEG results further recommendations will be discussed with the patient's in regards to long-term management. His overall prognosis at this time remains very guarded.
--- NOTE | 2016-10-15 19:44 | CT ---
EXAMINATION TYPE: CT brain wo con DATE OF EXAM: 10/15/2016 7:35 PM COMPARISON: 12/10/2015 HISTORY: Unwitnessed code blue. Patient on coumadin. Patient unresponsive. CT DLP: 1157.70 mGycm Automated exposure control for dose reduction was used. FINDINGS: There is cerebral cortical atrophy. There is no mass effect nor midline shift. There is enlargement o f the ventricles. There is no sign of intracranial hemorrhage. Calvarium is intact. IMPRESSION: Cerebral atrophy and chronic small vessel ischemia. Normal pressure type hydrocephalus. No adverse ch jean compared to old exam.
[2016-10-15] MEDS: NOREPINEPHRINE 16 MG in SODIUM CHLORIDE 0.9% 250 ML IV SCH ×2 (20:06→21:29)
[2016-10-15] MEDS: CHLORHEXIDINE GLUCONATE 15 ML CUP MUCOUS MEM SCH (21:29)
[2016-10-15 21:43] LABS: Anisocytosis Marked; CH 31.1; CHCM 28.5; HCT 28.1 % (39.0-53.0); HDW 3.87; HGB 8.2 gm/dL (13.0-17.5); Hypochromasia Marked; Large Platelets Flag Moderate; MCH 32.4 pg (25.0-35.0); MCHC 29.3 g/dL (31.0-37.0); MCV 110.8 fL (80.0-100.0); Macrocytosis Marked; Mean Platelet Volume 12.4; Poikilocytosis Slight; RBC 2.54 m/uL (4.30-5.90); RDW 24.1 % (11.5-15.5)
[2016-10-15 21:45] LABS: WBC 105.5 k/uL (3.8-10.6)
[2016-10-15 22:05] LABS: Calcium 8.8 mg/dL (8.4-10.2)
[2016-10-15 22:12] LABS: Potassium 6.6 mmol/L (3.5-5.1)
[2016-10-15] MEDS ORDERED: FUROSEMIDE 10 MG/ML 10 ML VIAL IV STA (22:52)
[2016-10-15] MEDS ORDERED: DEXTROSE 50%-WATER 50 ML SYRINGE IVP STA (22:52)
[2016-10-15] MEDS ORDERED: INSULIN REGULAR 100 UNIT/ML VIAL IV ONE (22:52)
[2016-10-16] MEDS: MORPHINE SULFATE 2 MG/ML SYRINGE IVP PRN (02:47)
[2016-10-16] MEDS: PHENYTOIN SODIUM INJ 50 MG/ML 2 ML VIAL IV SCH ×4 (02:47→18:40)
[2016-10-16 05:12] LABS: Anisocytosis Moderate; Aty Lym Flag Moderate; CH 31.1; CHCM 29.2; HCT 26.3 % (39.0-53.0); HDW 3.84; HGB 7.7 gm/dL (13.0-17.5); Hypochromasia Marked; Immature Gran Flag Marked; Large Platelets Flag Slight; MCH 31.6 pg (25.0-35.0); MCHC 29.3 g/dL (31.0-37.0); Macrocytosis Marked; Mean Platelet Volume 11.4; Poikilocytosis Slight; RBC 2.44 m/uL (4.30-5.90); RDW 23.7 % (11.5-15.5); WBC (Perox) 72.52
[2016-10-16 05:19] LABS: INR 3.4 (<1.1); Prothrombin Time 33.3 sec (9.0-12.0)
[2016-10-16 05:24] LABS: ABG Base Excess -9.4 mmol/L; ABG HCO3 15 mmol/L (21-25); ABG PCO2 26 mmHg (35-45); ABG PH 7.38 (7.35-7.45); ABG PO2 195 mmHg (83-108); ABG TCO2 16 mmol/L (19-24)
[2016-10-16 05:31] LABS: Calcium 8.5 mg/dL (8.4-10.2); Magnesium 2.3 mg/dL (1.6-2.3); Total Bilirubin 1.8 mg/dL (0.2-1.3); Total Protein 5.5 g/dL (6.3-8.2)
[2016-10-16 05:39] LABS: Phosphorous 8.2 mg/dL (2.5-4.5); Potassium 6.8 mmol/L (3.5-5.1)
[2016-10-16 06:01] LABS: Add Differential Manual Differential
[2016-10-16 06:08] LABS: Band Neutrophils % 26.5 %; Nucleated Red Blood Cells 4 /100 WBC (0-0); Total Cells Counted 200
[2016-10-16 06:09] LABS: Manual Review Performed; WBC 69.5 k/uL (3.8-10.6)
[2016-10-16 06:10] LABS: Ovalocytes Present; Polychromasia Present; Tear Drop Cells Present
[2016-10-16] MEDS ORDERED: INSULIN REGULAR 100 UNIT/ML VIAL IV ONE (06:46)
[2016-10-16] MEDS ORDERED: DEXTROSE 50%-WATER 50 ML SYRINGE IVP STA (06:46)
[2016-10-16] MEDS ORDERED: SODIUM POLYSTYRENE SULFONATE 15 GM/60 ML BOTTLE NG-TUBE STA (06:56)
[2016-10-16] MEDS ORDERED: CALCIUM GLUCONATE 1,000 MG in SODIUM CHLORIDE 0.9% 100 ML IVPB ONE (07:00)
--- NOTE | 2016-10-16 07:02 | XR ---
EXAMINATION TYPE: XR chest 1V portable DATE OF EXAM: 10/16/2016 6:41 AM CLINICAL HISTORY: Difficulty breathing progress study. Tube placement. TECHNIQUE: Single AP portable upright view of the chest is obtained. COMPARISON: Chest x-ray from one day earlier FINDINGS: There is new orogastric tube projecting below diaphragm. Endotracheal tube is slightly sup erior in position versus prior just above aortic knob, approximately 4 to 5 cm above ramses There is persistent cardiomegaly with dual lead pacemaker. There is metallic aortic stent graft at le alejandra of aortic root. There is atherosclerotic thoracic aorta. Patchy hilar airspace opacity remains pr esent. There is improved aeration right upper lung. Suspect tiny bilateral pleural effusions. No pneu mothorax is seen bilaterally. Osseous structures are intact. IMPRESSION: 1. New orogastric tube satisfactory in position. Endotracheal tube more ideal position after repositi oning on current study. 2. There is cardiomegaly with persistent perihilar edema and/or infiltrates felt slightly improved ve rsus prior, tiny bilateral pleural effusions are felt stable or slightly improved. Overall some impro vement in CHF exacerbation is suspected.
[2016-10-16] MEDS: IPRATROPIUM-ALBUTEROL 3 ML NEB INHALATION SCH ×4 (07:23→19:01)
--- NOTE | 2016-10-16 07:37 | EEG ---
DATE OF SERVICE: 10/15/2016 INDICATIONS FOR EXAMINATION: This patient is a 81-year-old male admitted to hospital with breakthrough seizure. Patient admitted with subtherapeutic Dilantin level. Patient now being evaluated for seizure focus. AGE: 81Y EEG FINDINGS: A routine 21-channel, awake digital EEG recording was accomplished utilizing the 10 -20 international system with bipolar and referential montages. The background activity in the most alert resting state consists of a low to medium amplitude, poorly developed and poorly sustained 6 Hz activity over the posterior head regions. This posterior rhythm attenuates to eye opening. There is a small amount of low amplitude 18 - 20 Hz beta activity seen maximally over the anterior head regions. Muscle and movement artifact was observed on a few occasions during the tracing. Towards the latter portion of the tracing, there is slight slowing of the background activity. No epileptiform discharges were seen. IMPRESSION: This EEG is moderately abnormal in diffuse fashion due to slowing of the EEG background. The EEG failed to reveal any focal, lateralized or epileptiform abnormalities. Clinical correlation is recommended.
[2016-10-16] MEDS: DEXTROSE 5% IN WATER 1,000 ML with SODIUM BICARB (1 MEQ/ML) 150 ML IV SCH (09:02)
[2016-10-16] MEDS: SODIUM CHLORIDE 0.9% 1,000 ML IV SCH (09:02)
[2016-10-16] MEDS: CHLORHEXIDINE GLUCONATE 15 ML CUP MUCOUS MEM SCH ×2 (09:03→22:45)
[2016-10-16] MEDS ORDERED: DARBEPOETIN ALFA 100MCG/0.5ML SYRINGE SQ SCH (10:00)
[2016-10-16] MEDS ORDERED: LIDOCAINE 1% INJ 10MG/ML (20 ML MDV) ONE (11:00)
[2016-10-16] MEDS ORDERED: HEPARIN SODIUM 1,000 UNIT/ML VIAL ONE (11:00)
--- NOTE | 2016-10-16 11:32 | P.PN ---
Subjective Patient is a 81 year old male with known history of seizure disorder maintained on Dilantin who was admitted to [facility] due to new seizure activity, Dilantin level on presentation was subtherapeutic, computed tomography scan of the brain did not reveal any evidence of intracranial bleeding. Family is giving a history of fall off a couch about 10 days ago. Patient was seen by neurology he has been receiving IV Dilantin boluses. 10/16/2016 yesterday, patient had an acute cardiopulmonary arrest on the medical floor. He was quite required to be intubated and transferred to the ICU. He had a repeat computed tomography scan of the brain which was negative. Patient remains ventilated. Currently not sedated awaiting a repeat EEG. Pulmonary and cardiology have been consulted. His Dilantin level is now and a therapeutic level. Haitians did require Levophed at 3 mics. Blood pressures are showing improvement. They're trying to wean off the pressors. Objective - Vital Signs Vital signs: Vital Signs Temp 100.2 F H 10/16/16 08:00 Pulse 60 10/16/16 11:00 Resp 0 L 10/16/16 10:30 BP 104/44 10/16/16 10:30 Pulse Ox 100 10/16/16 10:30 Intake & Output 10/15/16 10/16/16 10/16/16 18:59 06:59 18:59 Intake Total 75 2261.591 466.23 Output Total 0 75 10 Balance 75 2186.591 456.23 Weight 81.647 kg 92.1 kg Intake: IV 75 2125 425 Calcium Gluconate 1,000 200 100 mg In Sodium Chloride 0.9 % 100 ml @ 100 mls/hr IVPB ONCE ONE Rx#: [id number] Dextrose 5% in Water 1, 75 825 225 000 ml @ 75 mls/hr IV . [id number] ERICH with Sodium Bicarb (1 Meq/ml) 150 ml Rx#:[id number] Phenytoin Sodium Inj 500 100 mg In Sodium Chloride 0.9 % 100 ml @ 200 mls/hr IVPB ONCE STA Rx#: [id number] Sodium Chloride 0.9% 1, 1000 000 ml @ 999 mls/hr IV . Q1H1M ONE Rx#:[id number] cefTRIAXone 1,000 mg In 100 Sodium Chloride 0.9% 50 ml @ 100 mls/hr IVPB Q24HR ERICH Rx#:[id number] Intake, IV Titration 136.591 41.23 Amount Norepinephrine 16 mg In 136.591 41.23 Sodium Chloride 0.9% 250 ml @ Titrate IV .Q0M ERICH Rx#:[id number] Output: Gastric Drainage 50 Urine 0 25 10 Other: Voiding Method Indwelling Catheter Indwelling Catheter # Voids 3 # Bowel Movements 0 - Exam Head normocephalic Neck supple Lungs clear to auscultation bilaterally no wheezing or crackles Heart regular rate and rhythm S1-S2, no rub or gallop Abdomen is soft nontender nondistended positive bowel sounds no hepatosplenomegaly Extremities no edema Neuro patient is intubated. Resting comfortably. - Labs CBC & Chem 7: 10/16/16 04:52 10/16/16 04:52 Labs: Abnormal Lab Results - Last 24 Hours (Table) 10/15/16 10/15/16 10/15/16 Range/Units 16:07 16:46 17:45 WBC (3.8-10.6) k/uL RBC (4.30-5.90) m/uL Hgb (13.0-17.5) gm/dL Hct (39.0-53.0) % MCV (80.0-100.0) fL MCHC (31.0-37.0) g/dL RDW (11.5-15.5) % Neutrophils # (Manual) (1.3-7.7) k/uL Lymphocytes # (Manual) (1.0-4.8) k/uL Monocytes # (Manual) (0-1.0) k/uL Basophils # (Manual) (0-0.2) k/uL Nucleated RBCs (0-0) /100 WBC PT (9.0-12.0) sec INR (<1.1) APTT (22.0-30.0) sec ABG pH 7.17 L* (7.35-7.45) ABG pCO2 (35-45) mmHg ABG pO2 249 H (83-108) mmHg ABG HCO3 15 L (21-25) mmol/L ABG Total CO2 17 L (19-24) mmol/L ABG O2 Saturation 100.0 H (94-97) % Sodium 146 H (137-145) mmol/L Potassium 6.1 H (3.5-5.1) mmol/L Carbon Dioxide 13 L (22-30) mmol/L BUN 101 H* (9-20) mg/dL Creatinine 3.53 H (0.66-1.25) mg/dL Glucose 45 L* (74-99) mg/dL POC Glucose (mg/dL) 39 L (75-99) mg/dL Plasma Lactic Acid Bernard (0.7-2.0) mmol/L Phosphorus (2.5-4.5) mg/dL Total Bilirubin 2.0 H (0.2-1.3) mg/dL AST 755 H (17-59) U/L ALT 202 H (21-72) U/L Alkaline Phosphatase 171 H (38-126) U/L Total Creatine Kinase (55-170) U/L CK-MB (CK-2) (0.0-2.4) ng/mL Troponin I (0.000-0.034) ng/mL Total Protein 6.0 L (6.3-8.2) g/dL Albumin (3.5-5.0) g/dL 10/15/16 10/15/16 10/15/16 Range/Units 17:45 17:45 17:45 WBC 82.3 H* (3.8-10.6) k/uL RBC 2.46 L (4.30-5.90) m/uL Hgb 7.6 L (13.0-17.5) gm/dL Hct 27.9 L (39.0-53.0) % MCV 113.5 H D (80.0-100.0) fL MCHC 27.2 L (31.0-37.0) g/dL RDW 23.6 H (11.5-15.5) % Neutrophils # (Manual) 50.6 H (1.3-7.7) k/uL Lymphocytes # (Manual) (1.0-4.8) k/uL Monocytes # (Manual) 2.9 H (0-1.0) k/uL Basophils # (Manual) (0-0.2) k/uL Nucleated RBCs 15 H (0-0) /100 WBC PT 58.6 H (9.0-12.0) sec INR 5.8 H* (<1.1) APTT 38.1 H (22.0-30.0) sec ABG pH (7.35-7.45) ABG pCO2 (35-45) mmHg ABG pO2 (83-108) mmHg ABG HCO3 (21-25) mmol/L ABG Total CO2 (19-24) mmol/L ABG O2 Saturation (94-97) % Sodium (137-145) mmol/L Potassium (3.5-5.1) mmol/L Carbon Dioxide (22-30) mmol/L BUN (9-20) mg/dL Creatinine (0.66-1.25) mg/dL Glucose (74-99) mg/dL POC Glucose (mg/dL) (75-99) mg/dL Plasma Lactic Acid Bernard (0.7-2.0) mmol/L Phosphorus (2.5-4.5) mg/dL Total Bilirubin (0.2-1.3) mg/dL AST (17-59) U/L ALT (21-72) U/L Alkaline Phosphatase (38-126) U/L Total Creatine Kinase 282 H (55-170) U/L CK-MB (CK-2) 3.5 H* (0.0-2.4) ng/mL Troponin I 0.312 H* (0.000-0.034) ng/mL Total Protein (6.3-8.2) g/dL Albumin (3.5-5.0) g/dL 10/15/16 10/15/16 10/15/16 Range/Units 17:45 17:47 18:13 WBC (3.8-10.6) k/uL RBC (4.30-5.90) m/uL Hgb (13.0-17.5) gm/dL Hct (39.0-53.0) % MCV (80.0-100.0) fL MCHC (31.0-37.0) g/dL RDW (11.5-15.5) % Neutrophils # (Manual) (1.3-7.7) k/uL Lymphocytes # (Manual) (1.0-4.8) k/uL Monocytes # (Manual) (0-1.0) k/uL Basophils # (Manual) (0-0.2) k/uL Nucleated RBCs (0-0) /100 WBC PT (9.0-12.0) sec INR (<1.1) APTT (22.0-30.0) sec ABG pH (7.35-7.45) ABG pCO2 (35-45) mmHg ABG pO2 (83-108) mmHg ABG HCO3 (21-25) mmol/L ABG Total CO2 (19-24) mmol/L ABG O2 Saturation (94-97) % Sodium (137-145) mmol/L Potassium (3.5-5.1) mmol/L Carbon Dioxide (22-30) mmol/L BUN (9-20) mg/dL Creatinine (0.66-1.25) mg/dL Glucose (74-99) mg/dL POC Glucose (mg/dL) 50 L 107 H (75-99) mg/dL Plasma Lactic Acid Bernard 14.5 H* (0.7-2.0) mmol/L Phosphorus (2.5-4.5) mg/dL Total Bilirubin (0.2-1.3) mg/dL AST (17-59) U/L ALT (21-72) U/L Alkaline Phosphatase (38-126) U/L Total Creatine Kinase (55-170) U/L CK-MB (CK-2) (0.0-2.4) ng/mL Troponin I (0.000-0.034) ng/mL Total Protein (6.3-8.2) g/dL Albumin (3.5-5.0) g/dL 10/15/16 10/15/16 10/15/16 Range/Units 21:26 21:26 21:26 WBC 105.5 H* (3.8-10.6) k/uL RBC 2.54 L (4.30-5.90) m/uL Hgb 8.2 L (13.0-17.5) gm/dL Hct 28.1 L (39.0-53.0) % MCV 110.8 H (80.0-100.0) fL MCHC 29.3 L (31.0-37.0) g/dL RDW 24.1 H (11.5-15.5) % Neutrophils # (Manual) (1.3-7.7) k/uL Lymphocytes # (Manual) (1.0-4.8) k/uL Monocytes # (Manual) (0-1.0) k/uL Basophils # (Manual) (0-0.2) k/uL Nucleated RBCs (0-0) /100 WBC PT (9.0-12.0) sec INR (<1.1) APTT (22.0-30.0) sec ABG pH (7.35-7.45) ABG pCO2 (35-45) mmHg ABG pO2 (83-108) mmHg ABG HCO3 (21-25) mmol/L ABG Total CO2 (19-24) mmol/L ABG O2 Saturation (94-97) % Sodium (137-145) mmol/L Potassium 6.6 H* (3.5-5.1) mmol/L Carbon Dioxide 13 L (22-30) mmol/L BUN 104 H* (9-20) mg/dL Creatinine 3.73 H (0.66-1.25) mg/dL Glucose (74-99) mg/dL POC Glucose (mg/dL) (75-99) mg/dL Plasma Lactic Acid Bernard 11.8 H* (0.7-2.0) mmol/L Phosphorus (2.5-4.5) mg/dL Total Bilirubin (0.2-1.3) mg/dL AST (17-59) U/L ALT (21-72) U/L Alkaline Phosphatase (38-126) U/L Total Creatine Kinase (55-170) U/L CK-MB (CK-2) (0.0-2.4) ng/mL Troponin I (0.000-0.034) ng/mL Total Protein (6.3-8.2) g/dL Albumin (3.5-5.0) g/dL 10/16/16 10/16/16 10/16/16 Range/Units 04:39 04:52 04:52 WBC 69.5 H* (3.8-10.6) k/uL RBC 2.44 L (4.30-5.90) m/uL Hgb 7.7 L (13.0-17.5) gm/dL Hct 26.3 L (39.0-53.0) % MCV 108.0 H (80.0-100.0) fL MCHC 29.3 L (31.0-37.0) g/dL RDW 23.7 H (11.5-15.5) % Neutrophils # (Manual) 50.4 H (1.3-7.7) k/uL Lymphocytes # (Manual) 5.6 H (1.0-4.8) k/uL Monocytes # (Manual) 6.3 H (0-1.0) k/uL Basophils # (Manual) 0.3 H (0-0.2) k/uL Nucleated RBCs 4 H (0-0) /100 WBC PT 33.3 H (9.0-12.0) sec INR (<1.1) APTT (22.0-30.0) sec ABG pH (7.35-7.45) ABG pCO2 26 L (35-45) mmHg ABG pO2 195 H (83-108) mmHg ABG HCO3 15 L (21-25) mmol/L ABG Total CO2 16 L (19-24) mmol/L ABG O2 Saturation 100.0 H (94-97) % Sodium (137-145) mmol/L Potassium (3.5-5.1) mmol/L Carbon Dioxide (22-30) mmol/L BUN (9-20) mg/dL Creatinine (0.66-1.25) mg/dL Glucose (74-99) mg/dL POC Glucose (mg/dL) (75-99) mg/dL Plasma Lactic Acid Bernard (0.7-2.0) mmol/L Phosphorus (2.5-4.5) mg/dL Total Bilirubin (0.2-1.3) mg/dL AST (17-59) U/L ALT (21-72) U/L Alkaline Phosphatase (38-126) U/L Total Creatine Kinase (55-170) U/L CK-MB (CK-2) (0.0-2.4) ng/mL Troponin I (0.000-0.034) ng/mL Total Protein (6.3-8.2) g/dL Albumin (3.5-5.0) g/dL 10/16/16 Range/Units 04:52 WBC (3.8-10.6) k/uL RBC (4.30-5.90) m/uL Hgb (13.0-17.5) gm/dL Hct (39.0-53.0) % MCV (80.0-100.0) fL MCHC (31.0-37.0) g/dL RDW (11.5-15.5) % Neutrophils # (Manual) (1.3-7.7) k/uL Lymphocytes # (Manual) (1.0-4.8) k/uL Monocytes # (Manual) (0-1.0) k/uL Basophils # (Manual) (0-0.2) k/uL Nucleated RBCs (0-0) /100 WBC PT (9.0-12.0) sec INR (<1.1) APTT (22.0-30.0) sec ABG pH (7.35-7.45) ABG pCO2 (35-45) mmHg ABG pO2 (83-108) mmHg ABG HCO3 (21-25) mmol/L ABG Total CO2 (19-24) mmol/L ABG O2 Saturation (94-97) % Sodium (137-145) mmol/L Potassium 6.8 H* (3.5-5.1) mmol/L Carbon Dioxide 15 L (22-30) mmol/L BUN 113 H* (9-20) mg/dL Creatinine 3.80 H (0.66-1.25) mg/dL Glucose 159 H (74-99) mg/dL POC Glucose (mg/dL) (75-99) mg/dL Plasma Lactic Acid Bernard (0.7-2.0) mmol/L Phosphorus 8.2 H* (2.5-4.5) mg/dL Total Bilirubin 1.8 H (0.2-1.3) mg/dL AST 1105 H (17-59) U/L ALT 345 H (21-72) U/L Alkaline Phosphatase 156 H (38-126) U/L Total Creatine Kinase (55-170) U/L CK-MB (CK-2) (0.0-2.4) ng/mL Troponin I (0.000-0.034) ng/mL Total Protein 5.5 L (6.3-8.2) g/dL Albumin 3.3 L (3.5-5.0) g/dL Microbiology - Last 24 Hours (Table) 10/15/16 21:30 Urine Culture - Preliminary Urine,Catheterized 10/15/16 19:33 Gram Stain - Preliminary Sputum Sputum Culture - Preliminary Assessment and Plan Plan: #1 seizure activity in a patient with known history of seizure disorder maintained on Dilantin with low Dilantin level at 4.7 on presentation. Dilantin level is now therapeutic at 13.8 #2 cardiopulmonary arrest: Currently in the ICU and intubated. Awaiting pulmonary and cardiology consult #3underlying history of atrial fibrillation heart rate is well-controlled, patient was maintained on Coumadin at home for stroke prophylaxis his INR on presentation was therapeutic at 2.0 #4 chronic kidney disease stage IV followed as outpatient by Dr. Barnhart. Nephrology following #5 history of essential hypertension. Patient was hypotensive requiring vasopressors. Blood pressures are showing improvement. Patient being weaned off of the Levophed #6 severe pulmonary hypertension with bilateral lower extremity edema and ascites without any clear evidence of liver disease #[address] Toth #8 history of cardiac arrhythmia was previous history of permanent pacemaker placement #9 recent fall, was bruising around the right hip area . No evidence of fracture on x-ray #10 hyperkalemia: Patient given Kayexalate by nephrology. Repeat labs in a.m. #11 significant elevation in LFTs possibly related to shock liver due to cardiopulmonary arrest. Check LFTs in a.m. #12 coagulopathy: Patient's INR is now 3.4 after receiving vitamin K. No Coumadin tonight. Repeat PT/INR in a.m. 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
[2016-10-16 11:39] LABS: Glucose,Whole Blood 185 mg/dL (75-99)
[2016-10-16 11:51] LABS: Calcium 8.2 mg/dL (8.4-10.2); Total Bilirubin 1.6 mg/dL (0.2-1.3); Total Protein 5.3 g/dL (6.3-8.2)
[2016-10-16 11:55] LABS: Potassium 6.6 mmol/L (3.5-5.1)
--- NOTE | 2016-10-16 12:00 | CONS ---
DATE OF CONSULTATION: CHIEF COMPLAINT: Cardiac arrest. This is a 81-year-old gentleman with history of sick sinus syndrome, status post permanent pacemaker placement, coronary artery disease, congestive heart failure, chronic atrial fibrillation, hypertension, dyslipidemia, valvular heart disease and seizure disorder, who was admitted to the hospital having had a seizure at home and while on the medical floor had a cardiac arrest. I do not have the rhythm strips from the code, but I was told that the patient was in pulseless electrical activity. Subsequently had V. tach, V. fib and he was intubated. He is admitted to ICU, seemed to have suffered hypoxic encephalopathy with very little ( ) activity in spite of not being on sedation. Past medical history is significant for coronary artery disease, chronic atrial fibrillation, hypertension, dyslipidemia, osteoarthritis, aortic valve replacement, permanent pacemaker. Past surgical history is significant for valve replacement, hernia repair, pacemaker placement and cataract surgery. ALLERGIES: Allergic to CODEINE. Family history is negative for premature coronary artery disease. Social history, review of system unable to obtain from the patient who is intubated and on vent. Medications at home are as charted and I reviewed them. On exam, patient is intubated on vent. Heart rate 60 beats per minute, blood pressure 94/40, respiratory rate ( ). There is no jugular venous distention. Chest exam reveals diminished air entry bilaterally. Heart exam reveals first and second heart sounds. No gallop. There is a systolic murmur in the left lower sternal border. Abdomen is soft. Exam of extremities did not reveal edema. Peripheral pulses are felt. Labs show that the hemoglobin is 7.7. White cell count is 69. INR is 3.4. Potassium is 6.8. Sodium is 142. Creatinine is 3.8. BUN is 113. Two sets of troponins are negative. ASSESSMENT: 1. Status post cardiac arrest. 2. Chronic atrial fibrillation. 3. Sick sinus syndrome, status post permanent pacemaker placement. 4. Hyperkalemia. 5. Chronic renal failure. 6. Aortic valve replacement. PLAN: Hold the Coumadin given the elevated INR. The patient's prognosis is guarded as he seemed to have suffered hypoxic encephalopathy. We will obtain a 2-D echo to assess the valve and LV function. I will obtain a troponin to rule out myocardial infarction. The exact etiology for his cardiac arrest is unclear. There are multiple etiological possibilities including seizure, primary V. tach V. fib, problems related to his hyperkalemia is currently being treated. Nephrology is on the case. Neurology is currently on the case. Nephrology probably will be consulted.
--- NOTE | 2016-10-16 12:11 | P.NPCON ---
History of Present Illness - Reason for Consult acute renal failure - History of Present Illness Reason for consultation: Acute kidney injury on chronic kidney disease History of present illness: Patient is a 81-year-old male seen in renal consultation for acute kidney injury on chronic kidney disease. 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 Patient presented with a seizure and is being followed by neurology. He's been receiving IV Dilantin. His creatinine on admission was 2.7 and is up to 4.15 today. Yesterday night patient had a cardio [place] rest with down time of about 15 minutes. He did receive 5 rounds of epinephrine. His potassium level has been persistently elevated despite medical management. It is up to 6.8 this morning. He is oliguric. He is currently intubated and sedated. He is still requiring vasopressors and is currently maintained on levo fed at 3 mics per hour. Vital signs: Hypotensive requiring vasopressors. General: The patient is intubated and sedated. HEENT: Head exam is unremarkable. Neck is without jugular venous distension. LUNGS: Lungs are clear to auscultation and percussion. Breath sounds decreased. HEART: Rate and Rhythm are regular. First and second heart sounds normal. No murmurs, rubs or gallops. ABDOMEN: Abdominal exam reveals normal bowel sounds. Non-tender and non- distended. No evidence of peritonitis. EXTREMITITES: No clubbing, cyanosis, or edema. Past Medical History Past Medical History: Atrial Fibrillation, Blood Disorder, Coronary Artery Disease (CAD), Heart Failure, Diabetes Mellitus, GERD/Reflux, Hyperlipidemia, Hypertension, Osteoarthritis (OA), Prostate Disorder, Renal Disease, Seizure Disorder Additional Past Medical History / Comment(s): Pt was recently admitted to [facility] on 08/2016 with abdominal ascities, bilateral lower extremity edema and cellulitis. 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 Myelofibrosis, chronic leukocytosis, chronic throbocytosis, anemia of chronic kidney disease stage III. History of Any Multi-Drug Resistant Organisms: None Reported Past Surgical History: Cardiac Valve Replacement, Hernia Repair, Pacemaker Additional Past Surgical History / Comment(s): 04/2015 [facility] HERNIA REPAIR, 2 BMA with bx, EWELINA CATARACTS removed with lens implants, COLONOSCOPY, EGD, aortic VALVE REPLACEMENT and pacemaker done at [facility]. Past Anesthesia/Blood Transfusion Reactions: No Reported Reaction Additional Past Anesthesia/Blood Transfusion Reaction / Comment(s): TOOK A LONG TIME TO WAKE UP PER , clausterphobia Type of Cardiac Device: Permanent Pacemaker Device Placement Date:: 2014 Past Psychological History: Anxiety Additional Psychological History / Comment(s): Pt resides with his spouse of 34yrs. He ambulates with a walker. He no longer drives, spouse takes him to appointments. He is establishing with [facility] in [place] for home care. Spouse works human resources partner. Smoking Status: Never smoker Past Alcohol Use History: None Reported Past Drug Use History: None Reported - Past Family History Mother Family Medical History: Chest Pain / Angina Additional Family Medical History / Comment(s): lived to be age 91 Father Family Medical History: Osteoarthritis (OA) Additional Family Medical History / Comment(s): lived to age 97 Brother(s) Family Medical History: Cancer Additional Family Medical History / Comment(s): leukemia Sister(s) History Unknown: Yes Medications and Allergies Home Medications Medication Instructions Recorded Confirmed Type Dutasteride [Avodart] 0.5 mg PO QAM 04/05/15 10/14/16 History Tamsulosin HCl [Flomax] 0.4 mg PO HS 04/05/15 10/14/16 History Phenytoin Sodium Extended 200 mg PO BID 05/29/15 10/14/16 History [Dilantin] hydrALAZINE HCL [Apresoline] 100 mg PO TID 12/06/15 10/14/16 History Metolazone 5 mg PO BID@0800,1200 01/18/16 10/14/16 History Acetaminophen [Tylenol] 1,000 mg PO Q6H PRN 08/27/16 10/14/16 History Allopurinol [Zyloprim] 100 mg PO DAILY 08/27/16 10/14/16 History Bio-D Mulsion Forte 1 drop PO DAILY 08/27/16 10/14/16 History Insulin NPH/Reg Insulin 70/30 See Protocol SQ AC-BID 08/27/16 10/14/16 History [humuLIN 70/30 VIAL] Levothyroxine Sodium [Synthroid] 250 mcg PO DAILY 08/27/16 10/14/16 History Metoprolol Tartrate [Lopressor] 25 mg PO DAILY 08/27/16 10/14/16 History Sertraline [Zoloft] 25 mg PO HS PRN 08/27/16 10/14/16 History Sodium Bicarbonate 325 mg PO DAILY 08/27/16 10/14/16 History Aspirin EC [Ecotrin Low Dose] 81 mg PO DAILY 09/01/16 10/14/16 History Valsartan 40 mg PO DAILY 09/01/16 10/14/16 History Warfarin [Coumadin] 5 mg PO [id number] 09/01/16 10/14/16 History ALPRAZolam [Xanax] 0.25 mg PO HS PRN 10/14/16 10/14/16 History Famotidine [Pepcid] 40 mg PO BID 10/14/16 10/14/16 History Furosemide [Lasix] 60 mg PO BID 10/14/16 10/14/16 History Insulin NPH/Reg Insulin 70/30 6 unit SQ AC-LUNCH 10/14/16 10/14/16 History [humuLIN 70/30 VIAL] Warfarin [Coumadin] 7.5 mg PO MOTH 10/14/16 10/14/16 History clonazePAM [KlonoPIN] 0.5 mg PO HS PRN 10/14/16 10/14/16 History Allergies Allergy/AdvReac Type Severity Reaction Status Date / Time codeine AdvReac Confusion Verified 10/14/16 07:36 Physical Exam Vitals: Vital Signs Temp Pulse Pulse Resp BP BP Pulse Ox 10/16/16 11:00 60 13 94/40 100 10/16/16 10:52 61 10/16/16 10:30 65 0 L 104/44 100 10/16/16 10:00 66 32 H 104/46 100 10/16/16 09:30 60 7 L 99/44 100 10/16/16 09:00 60 32 H 113/47 100 10/16/16 08:30 60 30 H 117/54 100 10/16/16 08:00 100.2 F H 60 27 H 111/45 100 10/16/16 07:30 60 32 H 123/52 10/16/16 07:25 60 10/16/16 07:00 61 26 H 120/49 10/16/16 06:30 60 35 H 122/55 10/16/16 06:00 61 10 L 112/52 100 10/16/16 05:30 65 24 120/57 10/16/16 05:00 60 31 H 118/51 10/16/16 04:00 100.2 F H 65 10 L 113/52 100 10/16/16 03:00 68 29 H 136/67 100 10/16/16 02:01 60 33 H 131/57 100 10/16/16 01:00 60 23 134/55 10/16/16 00:00 99.9 F H 60 10 L 151/57 100 10/15/16 23:00 60 33 H 137/56 100 10/15/16 22:34 60 34 H 140/54 10/15/16 22:30 60 31 H 149/56 10/15/16 22:00 60 30 H 133/57 100 10/15/16 21:30 59 L 19 148/61 100 10/15/16 21:00 62 30 H 159/68 10/15/16 20:30 68 26 H 150/67 10/15/16 20:00 97.7 F 67 10 L 159/58 98 10/15/16 19:41 65 10/15/16 19:30 65 26 H 159/58 97 10/15/16 19:28 65 10/15/16 19:00 56 L 29 H 149/59 98 10/15/16 18:55 55 L 26 H 10/15/16 18:30 53 L 25 H 139/53 99 10/15/16 18:00 73 23 150/73 100 10/15/16 17:30 97.7 F 54 L 155/77 100 10/15/16 15:00 97.3 F L 55 L 18 129/61 95 Intake and Output 10/15/16 10/16/16 10/16/16 22:59 06:59 14:59 Intake Total 1576.741 759.85 541.23 Output Total 70 5 10 Balance 1506.741 754.85 531.23 Intake: IV 1500 700 500 Calcium Gluconate 1,000 100 100 100 mg In Sodium Chloride 0.9 % 100 ml @ 100 mls/hr IVPB ONCE ONE Rx#: [id number] Dextrose 5% in Water 1, 300 600 300 000 ml @ 75 mls/hr IV . [id number] ERICH with Sodium Bicarb (1 Meq/ml) 150 ml Rx#:[id number] Phenytoin Sodium Inj 500 100 mg In Sodium Chloride 0.9 % 100 ml @ 200 mls/hr IVPB ONCE STA Rx#: [id number] Sodium Chloride 0.9% 1, 1000 000 ml @ 999 mls/hr IV . Q1H1M ONE Rx#:[id number] cefTRIAXone 1,000 mg In 100 Sodium Chloride 0.9% 50 ml @ 100 mls/hr IVPB Q24HR [facility] Rx#:[id number] Intake, IV Titration 76.741 59.85 41.23 Amount Norepinephrine 16 mg In 76.741 59.85 41.23 Sodium Chloride 0.9% 250 ml @ Titrate IV .Q0M [facility] Rx#:[id number] Output: Gastric Drainage 50 Urine 20 5 10 Other: Voiding Method Indwelling Catheter Indwelling Catheter # Bowel Movements 0 Weight 92.1 kg Results - Lab Results Most recent lab results ABG pH 7.38 (7.35-7.45) 10/16/16 04:39 ABG pCO2 26 mmHg (35-45) L 10/16/16 04:39 ABG pO2 195 mmHg (83-108) H 10/16/16 04:39 ABG HCO3 15 mmol/L (21-25) L 10/16/16 04:39 ABG O2 Saturation 100.0 % (94-97) H 10/16/16 04:39 Calcium 8.2 mg/dL (8.4-10.2) L 10/16/16 11:00 Phosphorus 8.2 mg/dL (2.5-4.5) H* 10/16/16 04:52 Magnesium 2.3 mg/dL (1.6-2.3) 10/16/16 04:52 10/16/16 04:52 10/16/16 11:00 Assessment and Plan Plan: Assessment: #1. Oliguric acute kidney injury secondary to ischemic ATN secondary to cardiac arrest. Creatinine up to 4.1 today. #2. 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 #3. Hyperkalemia secondary to acute kidney injury as well as metabolic acidosis. #4. Hypotension currently requiring vasopressors. #5. UTI with urine culture positive for gram-negative bacilli. #6. Seizure disorder. #7. Metabolic acidosis secondary to acute kidney injury. Plan: Maintain bicarbonate drip to be run at 75 mL an hour. I discussed the need for renal replacement therapy with the family. They are agreeable to proceed for now. Will consult vascular surgery for dialysis catheter placement and schedule for first treatment of hemodialysis today. Continue to monitor urine output. Wean vasopressors as tolerated. Thank you for the consultation. I will continue to follow the patient with you during his hospital stay.
--- NOTE | 2016-10-16 15:17 | P.CNPUL ---
History of Present Illness Consult date: 10/16/16 Reason for consult: other (CPA, vent) Chief complaint: Status post cardiopulmonary arrest History of present illness: This is a 81-year-old gentleman with a complex medical history. The patient was originally admitted on 10/14/2016 for possible seizure activity with a history of seizure disorder. He was found to have subtherapeutic Dilantin level and was treated with Dilantin until he was therapeutic. The patient also has an extensive cardiac history including atrial fibrillation and sick sinus syndrome status post pacemaker. As well as stage IV chronic kidney disease being followed by nephrology. The patient apparently suffered a cardiopulmonary arrest yesterday. Per the medical record the rhythm was PEA and then V. tach and V. fib. He was successfully resuscitated after about 15 minutes of CPR. The patient is now intubated in the intensive care unit. Overnight he did require high-dose vasopressors including Levophed up to 40 mcg/ m. He is currently on Levophed at 3 mcg/m. He has had very minimal urine output. The patient did have persistently elevated potassium despite medical management. The patient is also on Coumadin for an aortic valve replacement. The patient also has a chronically elevated white blood cell count and has underlying myeloproliferative disorder. The patient did have severe leukocytosis up to 105, for possible leukostasis. Review of Systems ROS unobtainable: due to endotracheal tube Past Medical History Past Medical History: Atrial Fibrillation, Blood Disorder, Coronary Artery Disease (CAD), Heart Failure, Diabetes Mellitus, GERD/Reflux, Hyperlipidemia, Hypertension, Osteoarthritis (OA), Prostate Disorder, Renal Disease, Seizure Disorder Additional Past Medical History / Comment(s): Pt was recently admitted to [facility] on 08/2016 with abdominal ascities, bilateral lower extremity edema and cellulitis. 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 Myelofibrosis, chronic leukocytosis, chronic throbocytosis, anemia of chronic kidney disease stage III. History of Any Multi-Drug Resistant Organisms: None Reported Past Surgical History: Cardiac Valve Replacement, Hernia Repair, Pacemaker Additional Past Surgical History / Comment(s): 04/2015 [facility] HERNIA REPAIR, 2 BMA with bx, EWELINA CATARACTS removed with lens implants, COLONOSCOPY, EGD, aortic VALVE REPLACEMENT and pacemaker done at [facility]. Past Anesthesia/Blood Transfusion Reactions: No Reported Reaction Additional Past Anesthesia/Blood Transfusion Reaction / Comment(s): TOOK A LONG TIME TO WAKE UP PER , clausterphobia Type of Cardiac Device: Permanent Pacemaker Device Placement Date:: 2014 Past Psychological History: Anxiety Additional Psychological History / Comment(s): Pt resides with his spouse of 34yrs. He ambulates with a walker. He no longer drives, spouse takes him to appointments. He is establishing with [facility] in [place] for home care. Spouse works talent acquisition partner. Smoking Status: Never smoker Past Alcohol Use History: None Reported Past Drug Use History: None Reported - Past Family History Mother Family Medical History: Chest Pain / Angina Additional Family Medical History / Comment(s): lived to be age 91 Father Family Medical History: Osteoarthritis (OA) Additional Family Medical History / Comment(s): lived to age 97 Brother(s) Family Medical History: Cancer Additional Family Medical History / Comment(s): leukemia Sister(s) History Unknown: Yes Medications and Allergies Home Medications Medication Instructions Recorded Confirmed Type Dutasteride [Avodart] 0.5 mg PO QAM 04/05/15 10/14/16 History Tamsulosin HCl [Flomax] 0.4 mg PO HS 04/05/15 10/14/16 History Phenytoin Sodium Extended 200 mg PO BID 05/29/15 10/14/16 History [Dilantin] hydrALAZINE HCL [Apresoline] 100 mg PO TID 12/06/15 10/14/16 History Metolazone 5 mg PO BID@0800,1200 01/18/16 10/14/16 History Acetaminophen [Tylenol] 1,000 mg PO Q6H PRN 08/27/16 10/14/16 History Allopurinol [Zyloprim] 100 mg PO DAILY 08/27/16 10/14/16 History Bio-D Mulsion Forte 1 drop PO DAILY 08/27/16 10/14/16 History Insulin NPH/Reg Insulin 70/30 See Protocol SQ AC-BID 08/27/16 10/14/16 History [humuLIN 70/30 VIAL] Levothyroxine Sodium [Synthroid] 250 mcg PO DAILY 08/27/16 10/14/16 History Metoprolol Tartrate [Lopressor] 25 mg PO DAILY 08/27/16 10/14/16 History Sertraline [Zoloft] 25 mg PO HS PRN 08/27/16 10/14/16 History Sodium Bicarbonate 325 mg PO DAILY 08/27/16 10/14/16 History Aspirin EC [Ecotrin Low Dose] 81 mg PO DAILY 09/01/16 10/14/16 History Valsartan 40 mg PO DAILY 09/01/16 10/14/16 History Warfarin [Coumadin] 5 mg PO [id number] 09/01/16 10/14/16 History ALPRAZolam [Xanax] 0.25 mg PO HS PRN 10/14/16 10/14/16 History Famotidine [Pepcid] 40 mg PO BID 10/14/16 10/14/16 History Furosemide [Lasix] 60 mg PO BID 10/14/16 10/14/16 History Insulin NPH/Reg Insulin 70/30 6 unit SQ AC-LUNCH 10/14/16 10/14/16 History [humuLIN 70/30 VIAL] Warfarin [Coumadin] 7.5 mg PO MOTH 10/14/16 10/14/16 History clonazePAM [KlonoPIN] 0.5 mg PO HS PRN 10/14/16 10/14/16 History Allergies Allergy/AdvReac Type Severity Reaction Status Date / Time codeine AdvReac Confusion Verified 10/14/16 07:36 Physical Exam Osteopathic Statement: *. No significant issues noted on an osteopathic structural exam other than those noted in the History and Physical/Consult. Vitals: Vital Signs Temp Pulse Pulse Resp BP BP Pulse Ox 10/16/16 13:46 99.7 F H 60 33 H 106/51 100 10/16/16 13:16 99.3 F 60 19 108/45 100 10/16/16 13:06 100.4 F H 62 25 H 98/47 100 10/16/16 12:00 99.6 F 60 20 107/51 100 10/16/16 11:30 64 21 99/43 100 10/16/16 11:00 60 13 94/40 100 10/16/16 10:52 61 10/16/16 10:30 65 0 L 104/44 100 10/16/16 10:00 66 32 H 104/46 100 10/16/16 09:30 60 7 L 99/44 100 10/16/16 09:00 60 32 H 113/47 100 10/16/16 08:30 60 30 H 117/54 100 10/16/16 08:00 100.2 F H 60 33 H 111/45 100 10/16/16 07:30 60 32 H 123/52 10/16/16 07:25 60 10/16/16 07:00 61 26 H 120/49 10/16/16 06:30 60 35 H 122/55 10/16/16 06:00 61 10 L 112/52 100 10/16/16 05:30 65 24 120/57 10/16/16 05:00 60 31 H 118/51 10/16/16 04:00 100.2 F H 65 10 L 113/52 100 10/16/16 03:00 68 29 H 136/67 100 10/16/16 02:01 60 33 H 131/57 100 10/16/16 01:00 60 23 134/55 10/16/16 00:00 99.9 F H 60 10 L 151/57 100 10/15/16 23:00 60 33 H 137/56 100 10/15/16 22:34 60 34 H 140/54 10/15/16 22:30 60 31 H 149/56 10/15/16 22:00 60 30 H 133/57 100 10/15/16 21:30 59 L 19 148/61 100 10/15/16 21:00 62 30 H 159/68 10/15/16 20:30 68 26 H 150/67 10/15/16 20:00 97.7 F 67 10 L 159/58 98 10/15/16 19:41 65 10/15/16 19:30 65 26 H 159/58 97 10/15/16 19:28 65 10/15/16 19:00 56 L 29 H 149/59 98 10/15/16 18:55 55 L 26 H 10/15/16 18:30 53 L 25 H 139/53 99 10/15/16 18:00 73 23 150/73 100 10/15/16 17:30 97.7 F 54 L 155/77 100 10/15/16 15:00 97.3 F L 55 L 18 129/61 95 Intake and Output 10/15/16 10/16/16 10/16/16 22:59 06:59 14:59 Intake Total 1576.741 759.85 904.23 Output Total 70 5 10 Balance 1506.741 754.85 894.23 Intake: IV 1500 700 575 Calcium Gluconate 1,000 100 100 100 mg In Sodium Chloride 0.9 % 100 ml @ 100 mls/hr IVPB ONCE ONE Rx#: [id number] Dextrose 5% in Water 1, 300 600 375 000 ml @ 75 mls/hr IV . [id number] ERICH with Sodium Bicarb (1 Meq/ml) 150 ml Rx#:[id number] Phenytoin Sodium Inj 500 100 mg In Sodium Chloride 0.9 % 100 ml @ 200 mls/hr IVPB ONCE STA Rx#: [id number] Sodium Chloride 0.9% 1, 1000 000 ml @ 999 mls/hr IV . Q1H1M ONE Rx#:[id number] cefTRIAXone 1,000 mg In 100 Sodium Chloride 0.9% 50 ml @ 100 mls/hr IVPB Q24HR [facility] Rx#:[id number] Intake, IV Titration 76.741 59.85 41.23 Amount Norepinephrine 16 mg In 76.741 59.85 41.23 Sodium Chloride 0.9% 250 ml @ Titrate IV .Q0M [facility] Rx#:[id number] Blood Product 288 Ffp 24 Cpd Unit 0 [id number] Ffp 24 Cpd Unit 288 [id number] Output: Gastric Drainage 50 Urine 20 5 10 Other: Voiding Method Indwelling Catheter Indwelling Catheter Indwelling Catheter # Voids 0 # Bowel Movements 0 Weight 92.1 kg 92.1 kg Patient Weight 10/17/16 06:59 Weight 92.1 kg Gen.: Patient is on mechanical ventilator support, he has not received any sedative medications, he does attempt to open his eyes, he does have a cough and a gag, he does withdraw to pain, he also becomes to Neck Cardiovascular: Regular rate and rhythm, S1/S2 Lungs: Coarse breath sounds bilaterally Abdomen: Soft nontender nondistended positive bowel sounds Extremities: 3+ pitting edema bilaterally Results - Laboratory Findings CBC and BMP: 10/16/16 04:52 10/16/16 11:00 ABG ABG pH 7.38 (7.35-7.45) 10/16/16 04:39 ABG pCO2 26 mmHg (35-45) L 10/16/16 04:39 ABG pO2 195 mmHg (83-108) H 10/16/16 04:39 ABG O2 Saturation 100.0 % (94-97) H 10/16/16 04:39 PT/INR, D-dimer PT 33.3 sec (9.0-12.0) H 10/16/16 04:52 INR 3.4 (<1.1) 10/16/16 04:52 Abnormal lab findings: Abnormal Labs 10/14/16 10/14/16 10/15/16 11:57 17:09 16:07 WBC RBC Hgb Hct MCV MCHC RDW Neutrophils # (Manual) Lymphocytes # (Manual) Monocytes # (Manual) Basophils # (Manual) Nucleated RBCs PT INR APTT ABG pH ABG pCO2 ABG pO2 ABG HCO3 ABG Total CO2 ABG O2 Saturation Sodium Potassium Carbon Dioxide BUN Creatinine Glucose POC Glucose (mg/dL) 156 H 149 H 39 L Plasma Lactic Acid Bernard Calcium Phosphorus Total Bilirubin AST ALT Alkaline Phosphatase Total Creatine Kinase CK-MB (CK-2) Troponin I Total Protein Albumin 10/15/16 10/15/16 10/15/16 16:46 17:45 17:45 WBC 82.3 H* RBC 2.46 L Hgb 7.6 L Hct 27.9 L MCV 113.5 H D MCHC 27.2 L RDW 23.6 H Neutrophils # (Manual) 50.6 H Lymphocytes # (Manual) Monocytes # (Manual) 2.9 H Basophils # (Manual) Nucleated RBCs 15 H PT INR APTT ABG pH 7.17 L* ABG pCO2 ABG pO2 249 H ABG HCO3 15 L ABG Total CO2 17 L ABG O2 Saturation 100.0 H Sodium 146 H Potassium 6.1 H Carbon Dioxide 13 L BUN 101 H* Creatinine 3.53 H Glucose 45 L* POC Glucose (mg/dL) Plasma Lactic Acid Bernard Calcium Phosphorus Total Bilirubin 2.0 H AST 755 H ALT 202 H Alkaline Phosphatase 171 H Total Creatine Kinase CK-MB (CK-2) Troponin I Total Protein 6.0 L Albumin 10/15/16 10/15/16 10/15/16 17:45 17:45 17:45 WBC RBC Hgb Hct MCV MCHC RDW Neutrophils # (Manual) Lymphocytes # (Manual) Monocytes # (Manual) Basophils # (Manual) Nucleated RBCs PT 58.6 H INR 5.8 H* APTT 38.1 H ABG pH ABG pCO2 ABG pO2 ABG HCO3 ABG Total CO2 ABG O2 Saturation Sodium Potassium Carbon Dioxide BUN Creatinine Glucose POC Glucose (mg/dL) Plasma Lactic Acid Bernard 14.5 H* Calcium Phosphorus Total Bilirubin AST ALT Alkaline Phosphatase Total Creatine Kinase 282 H CK-MB (CK-2) 3.5 H* Troponin I 0.312 H* Total Protein Albumin 10/15/16 10/15/16 10/15/16 17:47 18:13 21:26 WBC RBC Hgb Hct MCV MCHC RDW Neutrophils # (Manual) Lymphocytes # (Manual) Monocytes # (Manual) Basophils # (Manual) Nucleated RBCs PT INR APTT ABG pH ABG pCO2 ABG pO2 ABG HCO3 ABG Total CO2 ABG O2 Saturation Sodium Potassium 6.6 H* Carbon Dioxide 13 L BUN 104 H* Creatinine 3.73 H Glucose POC Glucose (mg/dL) 50 L 107 H Plasma Lactic Acid Bernard Calcium Phosphorus Total Bilirubin AST ALT Alkaline Phosphatase Total Creatine Kinase CK-MB (CK-2) Troponin I Total Protein Albumin 10/15/16 10/15/16 10/16/16 21:26 21:26 04:39 WBC 105.5 H* RBC 2.54 L Hgb 8.2 L Hct 28.1 L MCV 110.8 H MCHC 29.3 L RDW 24.1 H Neutrophils # (Manual) Lymphocytes # (Manual) Monocytes # (Manual) Basophils # (Manual) Nucleated RBCs PT INR APTT ABG pH ABG pCO2 26 L ABG pO2 195 H ABG HCO3 15 L ABG Total CO2 16 L ABG O2 Saturation 100.0 H Sodium Potassium Carbon Dioxide BUN Creatinine Glucose POC Glucose (mg/dL) Plasma Lactic Acid Bernard 11.8 H* Calcium Phosphorus Total Bilirubin AST ALT Alkaline Phosphatase Total Creatine Kinase CK-MB (CK-2) Troponin I Total Protein Albumin 10/16/16 10/16/16 10/16/16 04:52 04:52 04:52 WBC 69.5 H* RBC 2.44 L Hgb 7.7 L Hct 26.3 L MCV 108.0 H MCHC 29.3 L RDW 23.7 H Neutrophils # (Manual) 50.4 H Lymphocytes # (Manual) 5.6 H Monocytes # (Manual) 6.3 H Basophils # (Manual) 0.3 H Nucleated RBCs 4 H PT 33.3 H INR APTT ABG pH ABG pCO2 ABG pO2 ABG HCO3 ABG Total CO2 ABG O2 Saturation Sodium Potassium 6.8 H* Carbon Dioxide 15 L BUN 113 H* Creatinine 3.80 H Glucose 159 H POC Glucose (mg/dL) Plasma Lactic Acid Bernard Calcium Phosphorus 8.2 H* Total Bilirubin 1.8 H AST 1105 H ALT 345 H Alkaline Phosphatase 156 H Total Creatine Kinase CK-MB (CK-2) Troponin I Total Protein 5.5 L Albumin 3.3 L 10/16/16 10/16/16 10/16/16 11:00 11:00 11:37 WBC RBC Hgb Hct MCV MCHC RDW Neutrophils # (Manual) Lymphocytes # (Manual) Monocytes # (Manual) Basophils # (Manual) Nucleated RBCs PT INR APTT ABG pH ABG pCO2 ABG pO2 ABG HCO3 ABG Total CO2 ABG O2 Saturation Sodium Potassium 6.6 H* Carbon Dioxide 16 L BUN 116 H* Creatinine 4.15 H Glucose 171 H POC Glucose (mg/dL) 185 H Plasma Lactic Acid Bernard Calcium 8.2 L Phosphorus Total Bilirubin 1.6 H AST 1121 H ALT 373 H Alkaline Phosphatase 150 H Total Creatine Kinase CK-MB (CK-2) Troponin I 1.190 H* Total Protein 5.3 L Albumin 3.1 L - Diagnostic Findings Chest x-ray: report reviewed, image reviewed Assessment and Plan Plan: Acute hypoxic respiratory failure requiring mechanical ventilation Status post cardiopulmonary arrest: PEA, V. fib/V. tach Toxic metabolic encephalopathy Multiorgan failure Uremia Oliguric renal failure, requiring hemodialysis Chronic kidney disease stage III Severe lactic acidosis Septic versus cardiogenic shock Myeloproliferative disorder, with severe leukocytosis, possible leukostasis Coumadin coagulopathy Chronic anemia 9 gap metabolic acidosis Shock liver NSTEMI Hyperkalemia, persistent despite medical management UTI present on admission: Pseudomonas aeruginosa, pansensitive Seizure disorder with breakthrough seizures Chronic atrial fibrillation History of sick sinus syndrome, status post permanent pacemaker History of aortic valve replacement Continue full ventilator support Vasopressors to maintain map greater than 65 Patient receiving FFP Hemodialysis catheter to be placed once INR acceptable Continue IV fluids, bicarb drip at 75 mL an hour Repeat echocardiogram pending Repeat EEG pending Serial troponins Hematology consult Neurology recommendations Hold sedative medications Insulin sliding scale and blood sugar control Bronchodilators Blood, urine, sputum cultures pending Will initiate tube feeding Monitor labs Probable hemodialysis today Hold anticoagulation, SCDs for DVT prophylaxis Protonix for GI prophylaxis Overall prognosis is extremely guarded at this time. Family is updated on the patient's condition. They are aware of multi organ failure and very poor prognosis. They are agreeable to DNR code status but continue other management at this time. If no improvement in condition or mental status in 48-72 hours, will re-discuss goals of care. CCT 48 min
[2016-10-16 15:45] LABS: INR 2.2 (<1.1); Prothrombin Time 21.6 sec (9.0-12.0)
[2016-10-16 16:32] LABS: Hemoglobin A1C 6.1 % (4.2-6.1)
--- NOTE | 2016-10-16 16:42 | P.GSCN ---
History of Present Illness History of present illness: 81-year-old white male, patient has developed acute chronic renal failure creatinine has increased from 2.7 and increased to 4.15, and potassium is 6.8 his PT INR was high we gave 2 units of fresh frozen plasma INR is 2.2 discussed with the patient needs urgent dialysis Catheter because of high potassium and graft medical history history of A. fib, coronary disease, diabetes mellitus , hypertension, seizure disorder, Surgical history patient had a marked Craddick well replaced and pacemaker placed in the past Patient receiving Lantus care unit patient has been intubated The abdomen soft nontender Vascular examination brachial radial femoral pulses are present Plan is placement of a dialysis catheter risk and complication has been discussed Past Medical History Past Medical History: Atrial Fibrillation, Blood Disorder, Coronary Artery Disease (CAD), Heart Failure, Diabetes Mellitus, GERD/Reflux, Hyperlipidemia, Hypertension, Osteoarthritis (OA), Prostate Disorder, Renal Disease, Seizure Disorder Additional Past Medical History / Comment(s): Pt was recently admitted to [facility] on 08/2016 with abdominal ascities, bilateral lower extremity edema and cellulitis. 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 Myelofibrosis, chronic leukocytosis, chronic throbocytosis, anemia of chronic kidney disease stage III. History of Any Multi-Drug Resistant Organisms: None Reported Past Surgical History: Cardiac Valve Replacement, Hernia Repair, Pacemaker Additional Past Surgical History / Comment(s): 04/2015 [facility] HERNIA REPAIR, 2 BMA with bx, EWELINA CATARACTS removed with lens implants, COLONOSCOPY, EGD, aortic VALVE REPLACEMENT and pacemaker done at [facility]. Past Anesthesia/Blood Transfusion Reactions: No Reported Reaction Additional Past Anesthesia/Blood Transfusion Reaction / Comm: TOOK A LONG TIME TO WAKE UP PER , clausterphobia Type of Cardiac Device: Permanent Pacemaker Device Placement Date:: 2014 Past Psychological History: Anxiety Additional Psychological History / Comment(s): Pt resides with his spouse of 34yrs. He ambulates with a walker. He no longer drives, spouse takes him to appointments. He is establishing with [facility] in [place] for home care. Spouse works business partner. Smoking Status: Never smoker Past Alcohol Use History: None Reported Past Drug Use History: None Reported - Past Family History Mother Family Medical History: Chest Pain / Angina Additional Family Medical History / Comment(s): lived to be age 91 Father Family Medical History: Osteoarthritis (OA) Additional Family Medical History / Comment(s): lived to age 97 Brother(s) Family Medical History: Cancer Additional Family Medical History / Comment(s): leukemia Sister(s) History Unknown: Yes Medications and Allergies Home Medications Medication Instructions Recorded Confirmed Type Dutasteride [Avodart] 0.5 mg PO QAM 04/05/15 10/14/16 History Tamsulosin HCl [Flomax] 0.4 mg PO HS 04/05/15 10/14/16 History Phenytoin Sodium Extended 200 mg PO BID 05/29/15 10/14/16 History [Dilantin] hydrALAZINE HCL [Apresoline] 100 mg PO TID 12/06/15 10/14/16 History Metolazone 5 mg PO BID@0800,1200 01/18/16 10/14/16 History Acetaminophen [Tylenol] 1,000 mg PO Q6H PRN 08/27/16 10/14/16 History Allopurinol [Zyloprim] 100 mg PO DAILY 08/27/16 10/14/16 History Bio-D Mulsion Forte 1 drop PO DAILY 08/27/16 10/14/16 History Insulin NPH/Reg Insulin 70/30 See Protocol SQ AC-BID 08/27/16 10/14/16 History [humuLIN 70/30 VIAL] Levothyroxine Sodium [Synthroid] 250 mcg PO DAILY 08/27/16 10/14/16 History Metoprolol Tartrate [Lopressor] 25 mg PO DAILY 08/27/16 10/14/16 History Sertraline [Zoloft] 25 mg PO HS PRN 08/27/16 10/14/16 History Sodium Bicarbonate 325 mg PO DAILY 08/27/16 10/14/16 History Aspirin EC [Ecotrin Low Dose] 81 mg PO DAILY 09/01/16 10/14/16 History Valsartan 40 mg PO DAILY 09/01/16 10/14/16 History Warfarin [Coumadin] 5 mg PO SUTUWEFRSA 09/01/16 10/14/16 History ALPRAZolam [Xanax] 0.25 mg PO HS PRN 10/14/16 10/14/16 History Famotidine [Pepcid] 40 mg PO BID 10/14/16 10/14/16 History Furosemide [Lasix] 60 mg PO BID 10/14/16 10/14/16 History Insulin NPH/Reg Insulin 70/30 6 unit SQ AC-LUNCH 10/14/16 10/14/16 History [humuLIN 70/30 VIAL] Warfarin [Coumadin] 7.5 mg PO MOTH 10/14/16 10/14/16 History clonazePAM [KlonoPIN] 0.5 mg PO HS PRN 10/14/16 10/14/16 History Allergies Allergy/AdvReac Type Severity Reaction Status Date / Time codeine AdvReac Confusion Verified 10/14/16 07:36 Surgical - Exam Vital Signs Temp Pulse Resp BP Pulse Ox 97.7 F 112 H 18 151/69 94 L 10/14/16 05:50 10/14/16 05:50 10/14/16 05:50 10/14/16 05:50 10/14/16 05:50 Results - Labs 10/16/16 04:52 10/16/16 11:00 Abnormal Lab Results - Last 24 Hours (Table) 10/15/16 10/15/16 10/15/16 Range/Units 16:46 17:45 17:45 WBC 82.3 H* (3.8-10.6) k/uL RBC 2.46 L (4.30-5.90) m/uL Hgb 7.6 L (13.0-17.5) gm/dL Hct 27.9 L (39.0-53.0) % MCV 113.5 H D (80.0-100.0) fL MCHC 27.2 L (31.0-37.0) g/dL RDW 23.6 H (11.5-15.5) % Neutrophils # (Manual) 50.6 H (1.3-7.7) k/uL Lymphocytes # (Manual) (1.0-4.8) k/uL Monocytes # (Manual) 2.9 H (0-1.0) k/uL Basophils # (Manual) (0-0.2) k/uL Nucleated RBCs 15 H (0-0) /100 WBC PT (9.0-12.0) sec INR (<1.1) APTT (22.0-30.0) sec ABG pH 7.17 L* (7.35-7.45) ABG pCO2 (35-45) mmHg ABG pO2 249 H (83-108) mmHg ABG HCO3 15 L (21-25) mmol/L ABG Total CO2 17 L (19-24) mmol/L ABG O2 Saturation 100.0 H (94-97) % Sodium 146 H (137-145) mmol/L Potassium 6.1 H (3.5-5.1) mmol/L Carbon Dioxide 13 L (22-30) mmol/L BUN 101 H* (9-20) mg/dL Creatinine 3.53 H (0.66-1.25) mg/dL Glucose 45 L* (74-99) mg/dL POC Glucose (mg/dL) (75-99) mg/dL Plasma Lactic Acid Bernard (0.7-2.0) mmol/L Calcium (8.4-10.2) mg/dL Phosphorus (2.5-4.5) mg/dL Total Bilirubin 2.0 H (0.2-1.3) mg/dL AST 755 H (17-59) U/L ALT 202 H (21-72) U/L Alkaline Phosphatase 171 H (38-126) U/L Total Creatine Kinase (55-170) U/L CK-MB (CK-2) (0.0-2.4) ng/mL Troponin I (0.000-0.034) ng/mL Total Protein 6.0 L (6.3-8.2) g/dL Albumin (3.5-5.0) g/dL 10/15/16 10/15/16 10/15/16 Range/Units 17:45 17:45 17:45 WBC (3.8-10.6) k/uL RBC (4.30-5.90) m/uL Hgb (13.0-17.5) gm/dL Hct (39.0-53.0) % MCV (80.0-100.0) fL MCHC (31.0-37.0) g/dL RDW (11.5-15.5) % Neutrophils # (Manual) (1.3-7.7) k/uL Lymphocytes # (Manual) (1.0-4.8) k/uL Monocytes # (Manual) (0-1.0) k/uL Basophils # (Manual) (0-0.2) k/uL Nucleated RBCs (0-0) /100 WBC PT 58.6 H (9.0-12.0) sec INR 5.8 H* (<1.1) APTT 38.1 H (22.0-30.0) sec ABG pH (7.35-7.45) ABG pCO2 (35-45) mmHg ABG pO2 (83-108) mmHg ABG HCO3 (21-25) mmol/L ABG Total CO2 (19-24) mmol/L ABG O2 Saturation (94-97) % Sodium (137-145) mmol/L Potassium (3.5-5.1) mmol/L Carbon Dioxide (22-30) mmol/L BUN (9-20) mg/dL Creatinine (0.66-1.25) mg/dL Glucose (74-99) mg/dL POC Glucose (mg/dL) (75-99) mg/dL Plasma Lactic Acid Bernard 14.5 H* (0.7-2.0) mmol/L Calcium (8.4-10.2) mg/dL Phosphorus (2.5-4.5) mg/dL Total Bilirubin (0.2-1.3) mg/dL AST (17-59) U/L ALT (21-72) U/L Alkaline Phosphatase (38-126) U/L Total Creatine Kinase 282 H (55-170) U/L CK-MB (CK-2) 3.5 H* (0.0-2.4) ng/mL Troponin I 0.312 H* (0.000-0.034) ng/mL Total Protein (6.3-8.2) g/dL Albumin (3.5-5.0) g/dL 10/15/16 10/15/16 10/15/16 Range/Units 17:47 18:13 21:26 WBC (3.8-10.6) k/uL RBC (4.30-5.90) m/uL Hgb (13.0-17.5) gm/dL Hct (39.0-53.0) % MCV (80.0-100.0) fL MCHC (31.0-37.0) g/dL RDW (11.5-15.5) % Neutrophils # (Manual) (1.3-7.7) k/uL Lymphocytes # (Manual) (1.0-4.8) k/uL Monocytes # (Manual) (0-1.0) k/uL Basophils # (Manual) (0-0.2) k/uL Nucleated RBCs (0-0) /100 WBC PT (9.0-12.0) sec INR (<1.1) APTT (22.0-30.0) sec ABG pH (7.35-7.45) ABG pCO2 (35-45) mmHg ABG pO2 (83-108) mmHg ABG HCO3 (21-25) mmol/L ABG Total CO2 (19-24) mmol/L ABG O2 Saturation (94-97) % Sodium (137-145) mmol/L Potassium 6.6 H* (3.5-5.1) mmol/L Carbon Dioxide 13 L (22-30) mmol/L BUN 104 H* (9-20) mg/dL Creatinine 3.73 H (0.66-1.25) mg/dL Glucose (74-99) mg/dL POC Glucose (mg/dL) 50 L 107 H (75-99) mg/dL Plasma Lactic Acid Bernard (0.7-2.0) mmol/L Calcium (8.4-10.2) mg/dL Phosphorus (2.5-4.5) mg/dL Total Bilirubin (0.2-1.3) mg/dL AST (17-59) U/L ALT (21-72) U/L Alkaline Phosphatase (38-126) U/L Total Creatine Kinase (55-170) U/L CK-MB (CK-2) (0.0-2.4) ng/mL Troponin I (0.000-0.034) ng/mL Total Protein (6.3-8.2) g/dL Albumin (3.5-5.0) g/dL 10/15/16 10/15/16 10/16/16 Range/Units 21:26 21:26 04:39 WBC 105.5 H* (3.8-10.6) k/uL RBC 2.54 L (4.30-5.90) m/uL Hgb 8.2 L (13.0-17.5) gm/dL Hct 28.1 L (39.0-53.0) % MCV 110.8 H (80.0-100.0) fL MCHC 29.3 L (31.0-37.0) g/dL RDW 24.1 H (11.5-15.5) % Neutrophils # (Manual) (1.3-7.7) k/uL Lymphocytes # (Manual) (1.0-4.8) k/uL Monocytes # (Manual) (0-1.0) k/uL Basophils # (Manual) (0-0.2) k/uL Nucleated RBCs (0-0) /100 WBC PT (9.0-12.0) sec INR (<1.1) APTT (22.0-30.0) sec ABG pH (7.35-7.45) ABG pCO2 26 L (35-45) mmHg ABG pO2 195 H (83-108) mmHg ABG HCO3 15 L (21-25) mmol/L ABG Total CO2 16 L (19-24) mmol/L ABG O2 Saturation 100.0 H (94-97) % Sodium (137-145) mmol/L Potassium (3.5-5.1) mmol/L Carbon Dioxide (22-30) mmol/L BUN (9-20) mg/dL Creatinine (0.66-1.25) mg/dL Glucose (74-99) mg/dL POC Glucose (mg/dL) (75-99) mg/dL Plasma Lactic Acid Bernard 11.8 H* (0.7-2.0) mmol/L Calcium (8.4-10.2) mg/dL Phosphorus (2.5-4.5) mg/dL Total Bilirubin (0.2-1.3) mg/dL AST (17-59) U/L ALT (21-72) U/L Alkaline Phosphatase (38-126) U/L Total Creatine Kinase (55-170) U/L CK-MB (CK-2) (0.0-2.4) ng/mL Troponin I (0.000-0.034) ng/mL Total Protein (6.3-8.2) g/dL Albumin (3.5-5.0) g/dL 10/16/16 10/16/16 10/16/16 Range/Units 04:52 04:52 04:52 WBC 69.5 H* (3.8-10.6) k/uL RBC 2.44 L (4.30-5.90) m/uL Hgb 7.7 L (13.0-17.5) gm/dL Hct 26.3 L (39.0-53.0) % MCV 108.0 H (80.0-100.0) fL MCHC 29.3 L (31.0-37.0) g/dL RDW 23.7 H (11.5-15.5) % Neutrophils # (Manual) 50.4 H (1.3-7.7) k/uL Lymphocytes # (Manual) 5.6 H (1.0-4.8) k/uL Monocytes # (Manual) 6.3 H (0-1.0) k/uL Basophils # (Manual) 0.3 H (0-0.2) k/uL Nucleated RBCs 4 H (0-0) /100 WBC PT 33.3 H (9.0-12.0) sec INR (<1.1) APTT (22.0-30.0) sec ABG pH (7.35-7.45) ABG pCO2 (35-45) mmHg ABG pO2 (83-108) mmHg ABG HCO3 (21-25) mmol/L ABG Total CO2 (19-24) mmol/L ABG O2 Saturation (94-97) % Sodium (137-145) mmol/L Potassium 6.8 H* (3.5-5.1) mmol/L Carbon Dioxide 15 L (22-30) mmol/L BUN 113 H* (9-20) mg/dL Creatinine 3.80 H (0.66-1.25) mg/dL Glucose 159 H (74-99) mg/dL POC Glucose (mg/dL) (75-99) mg/dL Plasma Lactic Acid Bernard (0.7-2.0) mmol/L Calcium (8.4-10.2) mg/dL Phosphorus 8.2 H* (2.5-4.5) mg/dL Total Bilirubin 1.8 H (0.2-1.3) mg/dL AST 1105 H (17-59) U/L ALT 345 H (21-72) U/L Alkaline Phosphatase 156 H (38-126) U/L Total Creatine Kinase (55-170) U/L CK-MB (CK-2) (0.0-2.4) ng/mL Troponin I (0.000-0.034) ng/mL Total Protein 5.5 L (6.3-8.2) g/dL Albumin 3.3 L (3.5-5.0) g/dL 10/16/16 10/16/16 10/16/16 Range/Units 11:00 11:00 11:37 WBC (3.8-10.6) k/uL RBC (4.30-5.90) m/uL Hgb (13.0-17.5) gm/dL Hct (39.0-53.0) % MCV (80.0-100.0) fL MCHC (31.0-37.0) g/dL RDW (11.5-15.5) % Neutrophils # (Manual) (1.3-7.7) k/uL Lymphocytes # (Manual) (1.0-4.8) k/uL Monocytes # (Manual) (0-1.0) k/uL Basophils # (Manual) (0-0.2) k/uL Nucleated RBCs (0-0) /100 WBC PT (9.0-12.0) sec INR (<1.1) APTT (22.0-30.0) sec ABG pH (7.35-7.45) ABG pCO2 (35-45) mmHg ABG pO2 (83-108) mmHg ABG HCO3 (21-25) mmol/L ABG Total CO2 (19-24) mmol/L ABG O2 Saturation (94-97) % Sodium (137-145) mmol/L Potassium 6.6 H* (3.5-5.1) mmol/L Carbon Dioxide 16 L (22-30) mmol/L BUN 116 H* (9-20) mg/dL Creatinine 4.15 H (0.66-1.25) mg/dL Glucose 171 H (74-99) mg/dL POC Glucose (mg/dL) 185 H (75-99) mg/dL Plasma Lactic Acid Bernard (0.7-2.0) mmol/L Calcium 8.2 L (8.4-10.2) mg/dL Phosphorus (2.5-4.5) mg/dL Total Bilirubin 1.6 H (0.2-1.3) mg/dL AST 1121 H (17-59) U/L ALT 373 H (21-72) U/L Alkaline Phosphatase 150 H (38-126) U/L Total Creatine Kinase (55-170) U/L CK-MB (CK-2) (0.0-2.4) ng/mL Troponin I 1.190 H* (0.000-0.034) ng/mL Total Protein 5.3 L (6.3-8.2) g/dL Albumin 3.1 L (3.5-5.0) g/dL 10/16/16 10/16/16 Range/Units 14:38 14:38 WBC (3.8-10.6) k/uL RBC (4.30-5.90) m/uL Hgb (13.0-17.5) gm/dL Hct (39.0-53.0) % MCV (80.0-100.0) fL MCHC (31.0-37.0) g/dL RDW (11.5-15.5) % Neutrophils # (Manual) (1.3-7.7) k/uL Lymphocytes # (Manual) (1.0-4.8) k/uL Monocytes # (Manual) (0-1.0) k/uL Basophils # (Manual) (0-0.2) k/uL Nucleated RBCs (0-0) /100 WBC PT 21.6 H (9.0-12.0) sec INR (<1.1) APTT 30.7 H (22.0-30.0) sec ABG pH (7.35-7.45) ABG pCO2 (35-45) mmHg ABG pO2 (83-108) mmHg ABG HCO3 (21-25) mmol/L ABG Total CO2 (19-24) mmol/L ABG O2 Saturation (94-97) % Sodium (137-145) mmol/L Potassium (3.5-5.1) mmol/L Carbon Dioxide (22-30) mmol/L BUN (9-20) mg/dL Creatinine (0.66-1.25) mg/dL Glucose (74-99) mg/dL POC Glucose (mg/dL) (75-99) mg/dL Plasma Lactic Acid Bernard (0.7-2.0) mmol/L Calcium (8.4-10.2) mg/dL Phosphorus (2.5-4.5) mg/dL Total Bilirubin (0.2-1.3) mg/dL AST (17-59) U/L ALT (21-72) U/L Alkaline Phosphatase (38-126) U/L Total Creatine Kinase (55-170) U/L CK-MB (CK-2) (0.0-2.4) ng/mL Troponin I (0.000-0.034) ng/mL Total Protein (6.3-8.2) g/dL Albumin (3.5-5.0) g/dL Microbiology - Last 24 Hours (Table) 10/15/16 19:33 Gram Stain - Preliminary Sputum Sputum Culture - Preliminary 10/15/16 21:30 Urine Culture - Preliminary Urine,Catheterized Diabetes panel 10/15/16 10/15/16 10/16/16 Range/Units 17:45 21:26 04:52 Sodium 146 H 142 142 (137-145) mmol/L Potassium 6.1 H 6.6 H* 6.8 H* (3.5-5.1) mmol/L Chloride 103 102 104 (98-107) mmol/L Carbon Dioxide 13 L 13 L 15 L (22-30) mmol/L BUN 101 H* 104 H* 113 H* (9-20) mg/dL Creatinine 3.53 H 3.73 H 3.80 H (0.66-1.25) mg/dL Glucose 45 L* 97 159 H (74-99) mg/dL Hemoglobin A1c (4.2-6.1) % Calcium 8.4 8.8 8.5 (8.4-10.2) mg/dL AST 755 H 1105 H (17-59) U/L ALT 202 H 345 H (21-72) U/L Alkaline Phosphatase 171 H 156 H (38-126) U/L Total Protein 6.0 L 5.5 L (6.3-8.2) g/dL Albumin 3.5 3.3 L (3.5-5.0) g/dL 10/16/16 10/16/16 Range/Units 04:52 11:00 Sodium 143 (137-145) mmol/L Potassium 6.6 H* (3.5-5.1) mmol/L Chloride 100 (98-107) mmol/L Carbon Dioxide 16 L (22-30) mmol/L BUN 116 H* (9-20) mg/dL Creatinine 4.15 H (0.66-1.25) mg/dL Glucose 171 H (74-99) mg/dL Hemoglobin A1c 6.1 (4.2-6.1) % Calcium 8.2 L (8.4-10.2) mg/dL AST 1121 H (17-59) U/L ALT 373 H (21-72) U/L Alkaline Phosphatase 150 H (38-126) U/L Total Protein 5.3 L (6.3-8.2) g/dL Albumin 3.1 L (3.5-5.0) g/dL Calcium panel 10/15/16 10/15/16 10/16/16 Range/Units 17:45 21:26 04:52 Calcium 8.4 8.8 8.5 (8.4-10.2) mg/dL Phosphorus 8.2 H* (2.5-4.5) mg/dL Albumin 3.5 3.3 L (3.5-5.0) g/dL 10/16/16 Range/Units 11:00 Calcium 8.2 L (8.4-10.2) mg/dL Phosphorus (2.5-4.5) mg/dL Albumin 3.1 L (3.5-5.0) g/dL Pituitary panel 10/15/16 10/15/16 10/16/16 Range/Units 17:45 21:26 04:52 Sodium 146 H 142 142 (137-145) mmol/L Potassium 6.1 H 6.6 H* 6.8 H* (3.5-5.1) mmol/L Chloride 103 102 104 (98-107) mmol/L Carbon Dioxide 13 L 13 L 15 L (22-30) mmol/L BUN 101 H* 104 H* 113 H* (9-20) mg/dL Creatinine 3.53 H 3.73 H 3.80 H (0.66-1.25) mg/dL Glucose 45 L* 97 159 H (74-99) mg/dL Calcium 8.4 8.8 8.5 (8.4-10.2) mg/dL 10/16/16 Range/Units 11:00 Sodium 143 (137-145) mmol/L Potassium 6.6 H* (3.5-5.1) mmol/L Chloride 100 (98-107) mmol/L Carbon Dioxide 16 L (22-30) mmol/L BUN 116 H* (9-20) mg/dL Creatinine 4.15 H (0.66-1.25) mg/dL Glucose 171 H (74-99) mg/dL Calcium 8.2 L (8.4-10.2) mg/dL Adrenal panel 10/15/16 10/15/16 10/16/16 Range/Units 17:45 21:26 04:52 Sodium 146 H 142 142 (137-145) mmol/L Potassium 6.1 H 6.6 H* 6.8 H* (3.5-5.1) mmol/L Chloride 103 102 104 (98-107) mmol/L Carbon Dioxide 13 L 13 L 15 L (22-30) mmol/L BUN 101 H* 104 H* 113 H* (9-20) mg/dL Creatinine 3.53 H 3.73 H 3.80 H (0.66-1.25) mg/dL Glucose 45 L* 97 159 H (74-99) mg/dL Calcium 8.4 8.8 8.5 (8.4-10.2) mg/dL Total Bilirubin 2.0 H 1.8 H (0.2-1.3) mg/dL AST 755 H 1105 H (17-59) U/L ALT 202 H 345 H (21-72) U/L Alkaline Phosphatase 171 H 156 H (38-126) U/L Total Protein 6.0 L 5.5 L (6.3-8.2) g/dL Albumin 3.5 3.3 L (3.5-5.0) g/dL 10/16/16 Range/Units 11:00 Sodium 143 (137-145) mmol/L Potassium 6.6 H* (3.5-5.1) mmol/L Chloride 100 (98-107) mmol/L Carbon Dioxide 16 L (22-30) mmol/L BUN 116 H* (9-20) mg/dL Creatinine 4.15 H (0.66-1.25) mg/dL Glucose 171 H (74-99) mg/dL Calcium 8.2 L (8.4-10.2) mg/dL Total Bilirubin 1.6 H (0.2-1.3) mg/dL AST 1121 H (17-59) U/L ALT 373 H (21-72) U/L Alkaline Phosphatase 150 H (38-126) U/L Total Protein 5.3 L (6.3-8.2) g/dL Albumin 3.1 L (3.5-5.0) g/dL
--- NOTE | 2016-10-16 16:43 | P.PCN ---
Description of Procedure: Preoperative diagnoses acute chronic renal failure Procedure is placement of the dialysis catheter right femoral approach Patient seen and discussed care unit right groin was prepped and draped applied in sterile manner 1% lidocaine were infiltrated right groin micropuncture and introducer right femoral vein micropuncture guidewire was passed a 4-Afghan dilator advanced over the guidewire then passed a regular guidewire and dilator were dorsal and on the top of the guidewire then 20 cm dialysis catheter placed flushed with heparin saline and Hep-Lock and secured with 3-0 nylon dressing applied patient tolerated the procedure well
[2016-10-16 18:18] LABS: Glucose,Whole Blood 231 mg/dL (75-99)
--- NOTE | 2016-10-16 18:40 | P.PN ---
Subjective This patient is a 81-year-old male who was seen today in the intensive care unit after he suffered a cardiopulmonary arrest on the medical floor yesterday. Patient was intubated and transferred to the intensive care unit. He was sent for a repeat computed tomography scan of the brain yesterday evening which came back negative for any evidence of acute stroke or hemorrhage. He was initially admitted to Hospital with new onset seizure due to subtherapeutic Dilantin level. His repeat Dilantin level today is therapeutic at 13.8. He remains intubated on the ventilator at this time. His urine culture is positive for E. coli and he is on appropriate antibiotics at this time. Patient will have a repeat EEG today for further evaluation of possible anoxic encephalopathy following cardiac arrest. Cardiology was consult for further evaluation. His Coumadin has been placed on hold due to an elevated INR. We are waiting the results of a 2-D echocardiogram. Troponins are being ordered to rule out myocardial infarction. Neurologically he remains intubated and obtunded at this time. We will need to complete his EEG today for further assessment of his anoxic encephalopathy. The patient is showing signs of multiorgan failure. He is scheduled to undergo dialysis tonight due to renal failure. We did review his EEG today which does reveal severe slowing and worsening compared to his previous study that was done yesterday. As noted his Dilantin level did come back therapeutic today and he has had no further seizures. We did discuss his neurological findings today in detail with the patient's daughter at bedside. All of her questions were answered. Family will continue to monitor his progress closely in the ICU and we'll give further instructions based on his progress. We will continue close neurological follow- up with this patient in the intensive care unit. His prognosis at this time remains very guarded. Objective - Vital Signs Vital signs: Vital Signs Temp 99.1 F 10/16/16 14:53 Pulse 66 10/16/16 15:35 Resp 31 H 10/16/16 15:00 BP 108/50 10/16/16 15:00 Pulse Ox 100 10/16/16 15:00 Intake & Output 10/15/16 10/16/16 10/16/16 18:59 06:59 18:59 Intake Total 75 2261.591 1459.23 Output Total 0 75 20 Balance 75 2186.591 1439.23 Weight 81.647 kg 92.1 kg 92.1 kg Intake: IV 75 2125 800 Calcium Gluconate 1,000 200 100 mg In Sodium Chloride 0.9 % 100 ml @ 100 mls/hr IVPB ONCE ONE Rx#: [id number] Dextrose 5% in Water 1, 75 825 600 000 ml @ 75 mls/hr IV . [id number] ERICH with Sodium Bicarb (1 Meq/ml) 150 ml Rx#:[id number] Phenytoin Sodium Inj 500 100 mg In Sodium Chloride 0.9 % 100 ml @ 200 mls/hr IVPB ONCE STA Rx#: [id number] Sodium Chloride 0.9% 1, 1000 000 ml @ 999 mls/hr IV . Q1H1M ONE Rx#:[id number] cefTRIAXone 1,000 mg In 100 Sodium Chloride 0.9% 50 ml @ 100 mls/hr IVPB Q24HR ERICH Rx#:[id number] Intake, IV Titration 136.591 41.23 Amount Norepinephrine 16 mg In 136.591 41.23 Sodium Chloride 0.9% 250 ml @ Titrate IV .Q0M [facility] Rx#:[id number] Blood Product 618 Ffp 24 Cpd Unit 330 [id number] Ffp 24 Cpd Unit 288 [id number] Output: Gastric Drainage 50 Urine 0 25 20 Other: Voiding Method Indwelling Catheter Indwelling Catheter Indwelling Catheter # Voids 3 0 # Bowel Movements 0 - Exam Physical examination: PHYSICAL EXAMINATION: Patient is resting comfortably in bed. Patient is intubated on the ventilator in the ICU. VITAL SIGNS: Blood pressure is [108/51]. Heart rate is [60]. Respiration is [24] . Temperature is [99.1]. HEENT: Head is atraumatic, neck is supple, there were no carotid bruits. CHEST: Lungs are clear to auscultation and percussion. CARDIAC: S1, S2 normal rate and rhythm. There is no murmur. ABDOMEN: Soft and nontender. Bowel sounds are present. EXTREMITIES: There is no pedal edema. Peripheral pulses are present. Neurological examination: Patient is intubated on the ventilator and is unresponsive at this time. He does withdraw to painful stimuli. Pupils are 2 mm sluggishly reactive to light. Corneal response diminished bilaterally. Patient does seem to have mild disconjugate eye gaze. Patient withdraws to painful stimuli and nail bed pressure. Deep tendon reflexes are hypoactive 1+. Plantar response is flexor bilaterally. - Labs CBC & Chem 7: 10/16/16 04:52 10/16/16 11:00 Labs: Abnormal Lab Results - Last 24 Hours (Table) 10/15/16 10/15/16 10/15/16 Range/Units 16:07 16:46 17:45 WBC (3.8-10.6) k/uL RBC (4.30-5.90) m/uL Hgb (13.0-17.5) gm/dL Hct (39.0-53.0) % MCV (80.0-100.0) fL MCHC (31.0-37.0) g/dL RDW (11.5-15.5) % Neutrophils # (Manual) (1.3-7.7) k/uL Lymphocytes # (Manual) (1.0-4.8) k/uL Monocytes # (Manual) (0-1.0) k/uL Basophils # (Manual) (0-0.2) k/uL Nucleated RBCs (0-0) /100 WBC PT (9.0-12.0) sec INR (<1.1) APTT (22.0-30.0) sec ABG pH 7.17 L* (7.35-7.45) ABG pCO2 (35-45) mmHg ABG pO2 249 H (83-108) mmHg ABG HCO3 15 L (21-25) mmol/L ABG Total CO2 17 L (19-24) mmol/L ABG O2 Saturation 100.0 H (94-97) % Sodium 146 H (137-145) mmol/L Potassium 6.1 H (3.5-5.1) mmol/L Carbon Dioxide 13 L (22-30) mmol/L BUN 101 H* (9-20) mg/dL Creatinine 3.53 H (0.66-1.25) mg/dL Glucose 45 L* (74-99) mg/dL POC Glucose (mg/dL) 39 L (75-99) mg/dL Plasma Lactic Acid Bernard (0.7-2.0) mmol/L Calcium (8.4-10.2) mg/dL Phosphorus (2.5-4.5) mg/dL Total Bilirubin 2.0 H (0.2-1.3) mg/dL AST 755 H (17-59) U/L ALT 202 H (21-72) U/L Alkaline Phosphatase 171 H (38-126) U/L Total Creatine Kinase (55-170) U/L CK-MB (CK-2) (0.0-2.4) ng/mL Troponin I (0.000-0.034) ng/mL Total Protein 6.0 L (6.3-8.2) g/dL Albumin (3.5-5.0) g/dL 10/15/16 10/15/16 10/15/16 Range/Units 17:45 17:45 17:45 WBC 82.3 H* (3.8-10.6) k/uL RBC 2.46 L (4.30-5.90) m/uL Hgb 7.6 L (13.0-17.5) gm/dL Hct 27.9 L (39.0-53.0) % MCV 113.5 H D (80.0-100.0) fL MCHC 27.2 L (31.0-37.0) g/dL RDW 23.6 H (11.5-15.5) % Neutrophils # (Manual) 50.6 H (1.3-7.7) k/uL Lymphocytes # (Manual) (1.0-4.8) k/uL Monocytes # (Manual) 2.9 H (0-1.0) k/uL Basophils # (Manual) (0-0.2) k/uL Nucleated RBCs 15 H (0-0) /100 WBC PT 58.6 H (9.0-12.0) sec INR 5.8 H* (<1.1) APTT 38.1 H (22.0-30.0) sec ABG pH (7.35-7.45) ABG pCO2 (35-45) mmHg ABG pO2 (83-108) mmHg ABG HCO3 (21-25) mmol/L ABG Total CO2 (19-24) mmol/L ABG O2 Saturation (94-97) % Sodium (137-145) mmol/L Potassium (3.5-5.1) mmol/L Carbon Dioxide (22-30) mmol/L BUN (9-20) mg/dL Creatinine (0.66-1.25) mg/dL Glucose (74-99) mg/dL POC Glucose (mg/dL) (75-99) mg/dL Plasma Lactic Acid Bernard (0.7-2.0) mmol/L Calcium (8.4-10.2) mg/dL Phosphorus (2.5-4.5) mg/dL Total Bilirubin (0.2-1.3) mg/dL AST (17-59) U/L ALT (21-72) U/L Alkaline Phosphatase (38-126) U/L Total Creatine Kinase 282 H (55-170) U/L CK-MB (CK-2) 3.5 H* (0.0-2.4) ng/mL Troponin I 0.312 H* (0.000-0.034) ng/mL Total Protein (6.3-8.2) g/dL Albumin (3.5-5.0) g/dL 10/15/16 10/15/16 10/15/16 Range/Units 17:45 17:47 18:13 WBC (3.8-10.6) k/uL RBC (4.30-5.90) m/uL Hgb (13.0-17.5) gm/dL Hct (39.0-53.0) % MCV (80.0-100.0) fL MCHC (31.0-37.0) g/dL RDW (11.5-15.5) % Neutrophils # (Manual) (1.3-7.7) k/uL Lymphocytes # (Manual) (1.0-4.8) k/uL Monocytes # (Manual) (0-1.0) k/uL Basophils # (Manual) (0-0.2) k/uL Nucleated RBCs (0-0) /100 WBC PT (9.0-12.0) sec INR (<1.1) APTT (22.0-30.0) sec ABG pH (7.35-7.45) ABG pCO2 (35-45) mmHg ABG pO2 (83-108) mmHg ABG HCO3 (21-25) mmol/L ABG Total CO2 (19-24) mmol/L ABG O2 Saturation (94-97) % Sodium (137-145) mmol/L Potassium (3.5-5.1) mmol/L Carbon Dioxide (22-30) mmol/L BUN (9-20) mg/dL Creatinine (0.66-1.25) mg/dL Glucose (74-99) mg/dL POC Glucose (mg/dL) 50 L 107 H (75-99) mg/dL Plasma Lactic Acid Bernard 14.5 H* (0.7-2.0) mmol/L Calcium (8.4-10.2) mg/dL Phosphorus (2.5-4.5) mg/dL Total Bilirubin (0.2-1.3) mg/dL AST (17-59) U/L ALT (21-72) U/L Alkaline Phosphatase (38-126) U/L Total Creatine Kinase (55-170) U/L CK-MB (CK-2) (0.0-2.4) ng/mL Troponin I (0.000-0.034) ng/mL Total Protein (6.3-8.2) g/dL Albumin (3.5-5.0) g/dL 10/15/16 10/15/16 10/15/16 Range/Units 21:26 21:26 21:26 WBC 105.5 H* (3.8-10.6) k/uL RBC 2.54 L (4.30-5.90) m/uL Hgb 8.2 L (13.0-17.5) gm/dL Hct 28.1 L (39.0-53.0) % MCV 110.8 H (80.0-100.0) fL MCHC 29.3 L (31.0-37.0) g/dL RDW 24.1 H (11.5-15.5) % Neutrophils # (Manual) (1.3-7.7) k/uL Lymphocytes # (Manual) (1.0-4.8) k/uL Monocytes # (Manual) (0-1.0) k/uL Basophils # (Manual) (0-0.2) k/uL Nucleated RBCs (0-0) /100 WBC PT (9.0-12.0) sec INR (<1.1) APTT (22.0-30.0) sec ABG pH (7.35-7.45) ABG pCO2 (35-45) mmHg ABG pO2 (83-108) mmHg ABG HCO3 (21-25) mmol/L ABG Total CO2 (19-24) mmol/L ABG O2 Saturation (94-97) % Sodium (137-145) mmol/L Potassium 6.6 H* (3.5-5.1) mmol/L Carbon Dioxide 13 L (22-30) mmol/L BUN 104 H* (9-20) mg/dL Creatinine 3.73 H (0.66-1.25) mg/dL Glucose (74-99) mg/dL POC Glucose (mg/dL) (75-99) mg/dL Plasma Lactic Acid Bernard 11.8 H* (0.7-2.0) mmol/L Calcium (8.4-10.2) mg/dL Phosphorus (2.5-4.5) mg/dL Total Bilirubin (0.2-1.3) mg/dL AST (17-59) U/L ALT (21-72) U/L Alkaline Phosphatase (38-126) U/L Total Creatine Kinase (55-170) U/L CK-MB (CK-2) (0.0-2.4) ng/mL Troponin I (0.000-0.034) ng/mL Total Protein (6.3-8.2) g/dL Albumin (3.5-5.0) g/dL 10/16/16 10/16/16 10/16/16 Range/Units 04:39 04:52 04:52 WBC 69.5 H* (3.8-10.6) k/uL RBC 2.44 L (4.30-5.90) m/uL Hgb 7.7 L (13.0-17.5) gm/dL Hct 26.3 L (39.0-53.0) % MCV 108.0 H (80.0-100.0) fL MCHC 29.3 L (31.0-37.0) g/dL RDW 23.7 H (11.5-15.5) % Neutrophils # (Manual) 50.4 H (1.3-7.7) k/uL Lymphocytes # (Manual) 5.6 H (1.0-4.8) k/uL Monocytes # (Manual) 6.3 H (0-1.0) k/uL Basophils # (Manual) 0.3 H (0-0.2) k/uL Nucleated RBCs 4 H (0-0) /100 WBC PT 33.3 H (9.0-12.0) sec INR (<1.1) APTT (22.0-30.0) sec ABG pH (7.35-7.45) ABG pCO2 26 L (35-45) mmHg ABG pO2 195 H (83-108) mmHg ABG HCO3 15 L (21-25) mmol/L ABG Total CO2 16 L (19-24) mmol/L ABG O2 Saturation 100.0 H (94-97) % Sodium (137-145) mmol/L Potassium (3.5-5.1) mmol/L Carbon Dioxide (22-30) mmol/L BUN (9-20) mg/dL Creatinine (0.66-1.25) mg/dL Glucose (74-99) mg/dL POC Glucose (mg/dL) (75-99) mg/dL Plasma Lactic Acid Bernard (0.7-2.0) mmol/L Calcium (8.4-10.2) mg/dL Phosphorus (2.5-4.5) mg/dL Total Bilirubin (0.2-1.3) mg/dL AST (17-59) U/L ALT (21-72) U/L Alkaline Phosphatase (38-126) U/L Total Creatine Kinase (55-170) U/L CK-MB (CK-2) (0.0-2.4) ng/mL Troponin I (0.000-0.034) ng/mL Total Protein (6.3-8.2) g/dL Albumin (3.5-5.0) g/dL 10/16/16 10/16/16 10/16/16 Range/Units 04:52 11:00 11:00 WBC (3.8-10.6) k/uL RBC (4.30-5.90) m/uL Hgb (13.0-17.5) gm/dL Hct (39.0-53.0) % MCV (80.0-100.0) fL MCHC (31.0-37.0) g/dL RDW (11.5-15.5) % Neutrophils # (Manual) (1.3-7.7) k/uL Lymphocytes # (Manual) (1.0-4.8) k/uL Monocytes # (Manual) (0-1.0) k/uL Basophils # (Manual) (0-0.2) k/uL Nucleated RBCs (0-0) /100 WBC PT (9.0-12.0) sec INR (<1.1) APTT (22.0-30.0) sec ABG pH (7.35-7.45) ABG pCO2 (35-45) mmHg ABG pO2 (83-108) mmHg ABG HCO3 (21-25) mmol/L ABG Total CO2 (19-24) mmol/L ABG O2 Saturation (94-97) % Sodium (137-145) mmol/L Potassium 6.8 H* 6.6 H* (3.5-5.1) mmol/L Carbon Dioxide 15 L 16 L (22-30) mmol/L BUN 113 H* 116 H* (9-20) mg/dL Creatinine 3.80 H 4.15 H (0.66-1.25) mg/dL Glucose 159 H 171 H (74-99) mg/dL POC Glucose (mg/dL) (75-99) mg/dL Plasma Lactic Acid Bernard (0.7-2.0) mmol/L Calcium 8.2 L (8.4-10.2) mg/dL Phosphorus 8.2 H* (2.5-4.5) mg/dL Total Bilirubin 1.8 H 1.6 H (0.2-1.3) mg/dL AST 1105 H 1121 H (17-59) U/L ALT 345 H 373 H (21-72) U/L Alkaline Phosphatase 156 H 150 H (38-126) U/L Total Creatine Kinase (55-170) U/L CK-MB (CK-2) (0.0-2.4) ng/mL Troponin I 1.190 H* (0.000-0.034) ng/mL Total Protein 5.5 L 5.3 L (6.3-8.2) g/dL Albumin 3.3 L 3.1 L (3.5-5.0) g/dL 10/16/16 10/16/16 Range/Units 11:37 14:38 WBC (3.8-10.6) k/uL RBC (4.30-5.90) m/uL Hgb (13.0-17.5) gm/dL Hct (39.0-53.0) % MCV (80.0-100.0) fL MCHC (31.0-37.0) g/dL RDW (11.5-15.5) % Neutrophils # (Manual) (1.3-7.7) k/uL Lymphocytes # (Manual) (1.0-4.8) k/uL Monocytes # (Manual) (0-1.0) k/uL Basophils # (Manual) (0-0.2) k/uL Nucleated RBCs (0-0) /100 WBC PT (9.0-12.0) sec INR (<1.1) APTT 30.7 H (22.0-30.0) sec ABG pH (7.35-7.45) ABG pCO2 (35-45) mmHg ABG pO2 (83-108) mmHg ABG HCO3 (21-25) mmol/L ABG Total CO2 (19-24) mmol/L ABG O2 Saturation (94-97) % Sodium (137-145) mmol/L Potassium (3.5-5.1) mmol/L Carbon Dioxide (22-30) mmol/L BUN (9-20) mg/dL Creatinine (0.66-1.25) mg/dL Glucose (74-99) mg/dL POC Glucose (mg/dL) 185 H (75-99) mg/dL Plasma Lactic Acid Bernard (0.7-2.0) mmol/L Calcium (8.4-10.2) mg/dL Phosphorus (2.5-4.5) mg/dL Total Bilirubin (0.2-1.3) mg/dL AST (17-59) U/L ALT (21-72) U/L Alkaline Phosphatase (38-126) U/L Total Creatine Kinase (55-170) U/L CK-MB (CK-2) (0.0-2.4) ng/mL Troponin I (0.000-0.034) ng/mL Total Protein (6.3-8.2) g/dL Albumin (3.5-5.0) g/dL Microbiology - Last 24 Hours (Table) 10/15/16 19:33 Gram Stain - Preliminary Sputum Sputum Culture - Preliminary 10/15/16 21:30 Urine Culture - Preliminary Urine,Catheterized Assessment and Plan (1) Cardiopulmonary arrest Status: Acute Code(s): I46.9 - CARDIAC ARREST, CAUSE UNSPECIFIED (2) Breakthrough seizure Status: Acute Code(s): G40.919 - EPILEPSY, UNSP, INTRACTABLE, WITHOUT STATUS EPILEPTICUS Plan: This patient is a 81-year-old male who had a cardiopulmonary arrest yesterday on the medical floor. He was intubated and transferred to the ICU yesterday. He underwent a computed tomography scan of the brain yesterday which failed to reveal any acute changes. He had an EEG today which was reviewed and is consistent with a severe anoxic encephalopathy with no seizure activity noted. He is showing very little improvement in his neurological status on examination today. His case was discussed at length with the patient's daughter at bedside. He does have evidence of worsening neurological status as compared to yesterday. Family would like to continue all treatment measures at this time. We will continue to monitor his neurological status closely in the ICU. We may want to repeat an EEG in 24-48 hours depending on his progress. The daughter will update her mother the patient's in terms of his overall condition at this time in the ICU. We will continue close monitoring of the patient. He is showing signs of multiorgan failure and will be undergoing hemodialysis today. His overall prognosis at this time remains very guarded.
[2016-10-16] MEDS: INSULIN LISPRO (humaLOG) 300 UNIT/3 ML VIAL SQ SCH (19:35)
--- NOTE | 2016-10-16 21:22 | EEG ---
DATE OF SERVICE: 10/16/2016 INDICATION FOR EXAMINATION: This patient is a 81-year-old male who has suffered acute cardiopulmonary arrest, currently intubated on the ventilator and is unresponsive. Patient admitted with history of seizure disorder. This is a follow-up EEG for comparison. AGE: 81 years. EEG FINDINGS: A routine 21-channel awake digital EEG recording was accomplished utilizing the 10-20 international system with bipolar and referential montages. The background activity in the most alert resting state consists of a low to medium amplitude, poorly developed and poorly sustained 3-4 Hz activity over the posterior head regions. This posterior rhythm attenuates minimally to eye opening. There is a small amount of low amplitude 18-20 Hz beta activity seen maximally over the anterior head regions. Muscle and movement artifact was observed on a few occasions during the tracing. Hyperventilation was not performed. Photic stimulation at flash frequencies of 2-30 Hz produced a minimal occipital driving response. No epileptiform discharges were seen. Towards the mid and latter portion of the tracing, there were episodes of very mild burst suppression pattern noted. IMPRESSION: This EEG gives evidence of a severe widespread diffuse disturbance in cerebral function. The EEG failed to reveal any focal, lateralized or epileptiform abnormalities. This EEG would be consistent with a severe anoxic encephalopathy. Compared to a previous EEG performed on 10/15/2016, there is significant slowing of the EEG background in comparison. Clinical correlation is recommended.
[2016-10-16 23:16] LABS: Magnesium 2.1 mg/dL (1.6-2.3); Phosphorous 6.7 mg/dL (2.5-4.5); Potassium 5.6 mmol/L (3.5-5.1)
[2016-10-17] MEDS: INSULIN LISPRO (humaLOG) 300 UNIT/3 ML VIAL SQ SCH ×4 (00:35→17:58)
[2016-10-17 00:36] LABS: Glucose,Whole Blood 218 mg/dL (75-99)
[2016-10-17] MEDS: PHENYTOIN SODIUM INJ 50 MG/ML 2 ML VIAL IV SCH ×4 (01:43→17:57)
[2016-10-17] MEDS: DEXTROSE 5% IN WATER 1,000 ML with SODIUM BICARB (1 MEQ/ML) 150 ML IV SCH (02:39)
[2016-10-17 05:00] LABS: ABG Base Excess 0.5 mmol/L; ABG HCO3 24 mmol/L (21-25); ABG PCO2 34 mmHg (35-45); ABG PH 7.46 (7.35-7.45); ABG PO2 179 mmHg (83-108); ABG TCO2 25 mmol/L (19-24)
[2016-10-17 05:30] LABS: Glucose,Whole Blood 230 mg/dL (75-99)
[2016-10-17 06:47] LABS: Anisocytosis Moderate; CH 31.5; CHCM 30.4; HDW 3.64; Hypochromasia Marked; Immature Gran Flag Marked; Large Platelets Flag Slight; MCH 31.2 pg (25.0-35.0); MCHC 29.8 g/dL (31.0-37.0); MCV 104.8 fL (80.0-100.0); Macrocytosis Marked; Mean Platelet Volume 11.6; Poikilocytosis Slight; RBC 2.19 m/uL (4.30-5.90); WBC (Perox) 46.33
[2016-10-17 06:49] LABS: HGB 6.8 gm/dL (13.0-17.5)
[2016-10-17 06:59] LABS: Calcium 7.7 mg/dL (8.4-10.2); Magnesium 2.1 mg/dL (1.6-2.3); Phosphorous 6.7 mg/dL (2.5-4.5); Potassium 5.6 mmol/L (3.5-5.1)
[2016-10-17 07:01] LABS: INR 2.1 (<1.1); Prothrombin Time 20.2 sec (9.0-12.0)
[2016-10-17 07:17] LABS: Add Differential Manual Differential
[2016-10-17] MEDS ORDERED: FUROSEMIDE 10 MG/ML 2 ML VIAL IV ONE (07:17)
[2016-10-17 07:24] LABS: Band Neutrophils % 4.5 %; Large Platelets Present; Manual Review Performed; Metamyelocytes % 2.5 %; Nucleated Red Blood Cells 2 /100 WBC (0-0); Polychromasia Present; Promyelocytes % 0.5 %; Total Cells Counted 200; Toxic Granulation Present; WBC 42.5 k/uL (3.8-10.6)
[2016-10-17] MEDS: IPRATROPIUM-ALBUTEROL 3 ML NEB INHALATION SCH ×4 (07:28→19:28)
--- NOTE | 2016-10-17 07:47 | XR ---
EXAMINATION TYPE: XR chest 1V portable DATE OF EXAM: 10/17/2016 6:46 AM COMPARISON: 10/16/2016 INDICATION: Tube placement difficulty breathing TECHNIQUE: Single frontal view of the chest is obtained. FINDINGS: The heart size is enlarged. The pulmonary vasculature is slightly prominent. Mild linear opacities at the right base. Correlate for atelectasis. There is a stent within the mid cardiac silhouette. Endotracheal tube is been advanced and is current ly 2.2 cm above the ramses. Nasogastric tube is present with tip in left upper quadrant of the abdome n. Electronic device overlies left chest. IMPRESSION: 1. Lines and catheters discussed above. 2. Mild atelectasis and mild cardiomegaly
[2016-10-17] MEDS: PANTOPRAZOLE 40 MG/10 ML VIAL IVP SCH (08:40)
[2016-10-17] MEDS: CHLORHEXIDINE GLUCONATE 15 ML CUP MUCOUS MEM SCH ×2 (08:40→21:02)
[2016-10-17] MEDS: ACETAMINOPHEN IV (For NPO) 1,000 MG in EMPTY BAG 1 BAG IVPB PRN (08:40)
--- NOTE | 2016-10-17 09:49 | ECHOF ---
Referral Reason:s/p cardiac arrest MEASUREMENTS -------- HEIGHT: 177.8 cm WEIGHT: 92.1 kg BP: RVIDd: 3.9 cm (< 3.3) IVSd: 1.5 cm (0.6 - 1.1) LVIDd: 3.3 cm (3.9 - 5.3) LVPWd: 1.5 cm (0.6 - 1.1) IVSs: 2.0 cm LVIDs: 2.5 cm LVPWs: 2.6 cm LA Diam: 4.8 cm (2.7 - 3.8) LAESV Index (A-L): 41.27 ml/m Ao Diam: 2.4 cm (2.0 - 3.7) AV Cusp: 1.5 cm (1.5 - 2.6) LA Diam: 4.3 cm (2.7 - 3.8) MV EXCURSION: 19.783 mm (> 18.000) MV EF SLOPE: 44 mm/s (70 - 150) EPSS: 0.8 cm MV E Tyler: 1.34 m/s MV DecT: 129 ms MV A Tyler: 0.76 m/s MV E/A Ratio: 1.76 AV maxP.87 mmHg AV meanP.53 mmHg RAP: 15.00 mmHg RVSP: 44.59 mmHg FINDINGS -------- Paced rhythm. Pacerwire seen in RV and RA. This was a technically good study. There is moderate concentric left ventricular hypertrophy. Overall left ventricular systolic function is normal with, an EF between 55 - 60 %. The right ventricle is moderately enlarged. LA is severely dilated >40 ml/m2 RA appears enlarged. Aortic valve is trileaflet and is moderately thickened. Peak/mean gradient across the Aortic Valve is 29.87mmHg / 15.53mmHg. Normally functioning bioprosthetic valve. The mitral valve leaflets are mild to moderately thickened. Moderate mitral annular calcification present. The peak and mean MV gradients are 7.24mmHg 2.19mmHg as measured by doppler. Moderate tricuspid regurgitation present. There is mild pulmonary hypertension. The right ventricular systolic pressure, as measured by Doppler, is 44.59mmHg. Pulmonic valve appears structurally normal. The aortic root size is normal. The inferior vena cava is dilated with no significant inspiratory collapse which is consistent estimated right atrial pressure of >15mmHg. Pleural Effusion with Fibrin. CONCLUSIONS -------- 1. Paced rhythm. 2. Peak/mean gradient across the Aortic Valve is 29.87mmHg / 15.53mmHg. 3. Normally functioning bioprosthetic valve. 4. The mitral valve leaflets are mild to moderately thickened. 5. Moderate mitral annular calcification present. 6. The peak and mean MV gradients are 7.24mmHg 2.19mmHg as measured by doppler. 7. Moderate tricuspid regurgitation present. 8. There is mild pulmonary hypertension. 9. The right ventricular systolic pressure, as measured by Doppler, is 44.59mmHg. 10. Pulmonic valve appears structurally normal. 11. The aortic root size is normal. 12. Pacerwire seen in RV and RA. 13. The inferior vena cava is dilated with no significant inspiratory collapse which is consistent estimated right atrial pressure of >15mmHg. 14. Pleural Effusion with Fibrin. 15. This was a technically good study. 16. There is moderate concentric left ventricular hypertrophy. 17. Overall left ventricular systolic function is normal with, an EF between 55 - 60 %. 18. The right ventricle is moderately enlarged. 19. LA is severely dilated >40 ml/m2 20. RA appears enlarged. 21. Aortic valve is trileaflet and is moderately thickened. THREAT ANALYST: Priya Michelle RDCS
[2016-10-17 09:58] VITALS: BMI 29.6
[2016-10-17 10:00] LABS: Bilirubin, Delta 1.1 mg/dL (0.0-0.2); Total Bilirubin 1.6 mg/dL (0.2-1.3)
--- NOTE | 2016-10-17 11:49 | P.PN ---
Subjective Principal diagnosis: Status post cardiopulmonary arrest Patient seen and examined in the ICU with nursing staff and family at bedside. The patient is currently off of Levophed. He did undergo hemodialysis yesterday. The plan is for hemodialysis again today. He is going to receive 2 units of packed red blood cells for anemia today. He is tolerating tube feeds well. ABG is reviewed and ventilator adjustments are made. The family at bedside is updated the plan of care. Objective - Vital Signs Vital signs: Vital Signs Temp 100.6 F H 10/17/16 10:45 Pulse 100 10/17/16 11:21 Resp 24 10/17/16 10:45 BP 99/53 10/17/16 10:45 Pulse Ox 98 10/17/16 10:45 Intake & Output 10/16/16 10/17/16 10/17/16 18:59 06:59 18:59 Intake Total 1684.23 1073.212 355 Output Total 30 30 0 Balance 1654.23 1043.212 355 Weight 92.1 kg 93.7 kg 93.7 kg Intake: IV 1025 900 275 Calcium Gluconate 1,000 100 mg In Sodium Chloride 0.9 % 100 ml @ 100 mls/hr IVPB ONCE ONE Rx#: [id number] Dextrose 5% in Water 1, 825 900 225 000 ml @ 75 mls/hr IV . [id number] ERICH with Sodium Bicarb (1 Meq/ml) 150 ml Rx#:[id number] cefTRIAXone 1,000 mg In 100 50 Sodium Chloride 0.9% 50 ml @ 100 mls/hr IVPB Q24HR ERICH Rx#:[id number] Intake, IV Titration 41.23 41.212 Amount Norepinephrine 16 mg In 41.23 41.212 Sodium Chloride 0.9% 250 ml @ Titrate IV .Q0M ERICH Rx#:[id number] Tube Feeding 72 80 Blood Product 618 0 Ffp 24 Cpd Unit 330 [id number] Ffp 24 Cpd Unit 288 [id number] Rc As-1 Unit 0 [id number] Other 60 Output: Urine 30 30 0 Other: Voiding Method Indwelling Catheter Indwelling Catheter # Voids 0 0 - Exam Gen.: Patient is on mechanical ventilator support, he has not received any sedative medications, he is less responsive today. He does try to chew on the ET tube however he has minimal cough and gag, he was not responding to noxious stimuli Cardiovascular: Regular rate and rhythm, S1/S2 Lungs: Coarse breath sounds bilaterally Abdomen: Soft nontender nondistended positive bowel sounds Extremities: 3+ pitting edema bilaterally, anasarca diffusely - Labs CBC & Chem 7: 10/17/16 06:25 10/17/16 06:25 Labs: Abnormal Lab Results - Last 24 Hours (Table) 10/16/16 10/16/16 10/16/16 Range/Units 11:00 11:00 14:38 WBC (3.8-10.6) k/uL RBC (4.30-5.90) m/uL Hgb (13.0-17.5) gm/dL Hct (39.0-53.0) % MCV (80.0-100.0) fL MCHC (31.0-37.0) g/dL RDW (11.5-15.5) % Plt Count (150-450) k/uL Neutrophils # (Manual) (1.3-7.7) k/uL Lymphocytes # (Manual) (1.0-4.8) k/uL Monocytes # (Manual) (0-1.0) k/uL Nucleated RBCs (0-0) /100 WBC PT (9.0-12.0) sec APTT 30.7 H (22.0-30.0) sec ABG pH (7.35-7.45) ABG pCO2 (35-45) mmHg ABG pO2 (83-108) mmHg ABG Total CO2 (19-24) mmol/L ABG O2 Saturation (94-97) % Potassium 6.6 H* (3.5-5.1) mmol/L Carbon Dioxide 16 L (22-30) mmol/L BUN 116 H* (9-20) mg/dL Creatinine 4.15 H (0.66-1.25) mg/dL Glucose 171 H (74-99) mg/dL POC Glucose (mg/dL) (75-99) mg/dL Plasma Lactic Acid Bernard (0.7-2.0) mmol/L Calcium 8.2 L (8.4-10.2) mg/dL Phosphorus (2.5-4.5) mg/dL Total Bilirubin 1.6 H (0.2-1.3) mg/dL Delta Bilirubin (0.0-0.2) mg/dL AST 1121 H (17-59) U/L ALT 373 H (21-72) U/L Alkaline Phosphatase 150 H (38-126) U/L Troponin I 1.190 H* (0.000-0.034) ng/mL Total Protein 5.3 L (6.3-8.2) g/dL Albumin 3.1 L (3.5-5.0) g/dL 10/16/16 10/16/16 10/16/16 Range/Units 14:38 18:12 22:50 WBC (3.8-10.6) k/uL RBC (4.30-5.90) m/uL Hgb (13.0-17.5) gm/dL Hct (39.0-53.0) % MCV (80.0-100.0) fL MCHC (31.0-37.0) g/dL RDW (11.5-15.5) % Plt Count (150-450) k/uL Neutrophils # (Manual) (1.3-7.7) k/uL Lymphocytes # (Manual) (1.0-4.8) k/uL Monocytes # (Manual) (0-1.0) k/uL Nucleated RBCs (0-0) /100 WBC PT 21.6 H (9.0-12.0) sec APTT (22.0-30.0) sec ABG pH (7.35-7.45) ABG pCO2 (35-45) mmHg ABG pO2 (83-108) mmHg ABG Total CO2 (19-24) mmol/L ABG O2 Saturation (94-97) % Potassium 5.6 H (3.5-5.1) mmol/L Carbon Dioxide (22-30) mmol/L BUN (9-20) mg/dL Creatinine (0.66-1.25) mg/dL Glucose (74-99) mg/dL POC Glucose (mg/dL) 231 H (75-99) mg/dL Plasma Lactic Acid Bernard (0.7-2.0) mmol/L Calcium (8.4-10.2) mg/dL Phosphorus 6.7 H (2.5-4.5) mg/dL Total Bilirubin (0.2-1.3) mg/dL Delta Bilirubin (0.0-0.2) mg/dL AST (17-59) U/L ALT (21-72) U/L Alkaline Phosphatase (38-126) U/L Troponin I (0.000-0.034) ng/mL Total Protein (6.3-8.2) g/dL Albumin (3.5-5.0) g/dL 10/17/16 10/17/16 10/17/16 Range/Units 00:33 04:46 05:28 WBC (3.8-10.6) k/uL RBC (4.30-5.90) m/uL Hgb (13.0-17.5) gm/dL Hct (39.0-53.0) % MCV (80.0-100.0) fL MCHC (31.0-37.0) g/dL RDW (11.5-15.5) % Plt Count (150-450) k/uL Neutrophils # (Manual) (1.3-7.7) k/uL Lymphocytes # (Manual) (1.0-4.8) k/uL Monocytes # (Manual) (0-1.0) k/uL Nucleated RBCs (0-0) /100 WBC PT (9.0-12.0) sec APTT (22.0-30.0) sec ABG pH 7.46 H (7.35-7.45) ABG pCO2 34 L (35-45) mmHg ABG pO2 179 H (83-108) mmHg ABG Total CO2 25 H (19-24) mmol/L ABG O2 Saturation 100.0 H (94-97) % Potassium (3.5-5.1) mmol/L Carbon Dioxide (22-30) mmol/L BUN (9-20) mg/dL Creatinine (0.66-1.25) mg/dL Glucose (74-99) mg/dL POC Glucose (mg/dL) 218 H 230 H (75-99) mg/dL Plasma Lactic Acid Bernard (0.7-2.0) mmol/L Calcium (8.4-10.2) mg/dL Phosphorus (2.5-4.5) mg/dL Total Bilirubin (0.2-1.3) mg/dL Delta Bilirubin (0.0-0.2) mg/dL AST (17-59) U/L ALT (21-72) U/L Alkaline Phosphatase (38-126) U/L Troponin I (0.000-0.034) ng/mL Total Protein (6.3-8.2) g/dL Albumin (3.5-5.0) g/dL 10/17/16 10/17/16 10/17/16 Range/Units 06:25 06:25 06:25 WBC 42.5 H* (3.8-10.6) k/uL RBC 2.19 L (4.30-5.90) m/uL Hgb 6.8 L* (13.0-17.5) gm/dL Hct 23.0 L (39.0-53.0) % MCV 104.8 H (80.0-100.0) fL MCHC 29.8 L (31.0-37.0) g/dL RDW 23.0 H (11.5-15.5) % Plt Count 146 L (150-450) k/uL Neutrophils # (Manual) 32.1 H (1.3-7.7) k/uL Lymphocytes # (Manual) 5.3 H (1.0-4.8) k/uL Monocytes # (Manual) 2.1 H (0-1.0) k/uL Nucleated RBCs 2 H (0-0) /100 WBC PT 20.2 H (9.0-12.0) sec APTT (22.0-30.0) sec ABG pH (7.35-7.45) ABG pCO2 (35-45) mmHg ABG pO2 (83-108) mmHg ABG Total CO2 (19-24) mmol/L ABG O2 Saturation (94-97) % Potassium 5.6 H (3.5-5.1) mmol/L Carbon Dioxide (22-30) mmol/L BUN 110 H* (9-20) mg/dL Creatinine 3.66 H (0.66-1.25) mg/dL Glucose 208 H (74-99) mg/dL POC Glucose (mg/dL) (75-99) mg/dL Plasma Lactic Acid Bernard (0.7-2.0) mmol/L Calcium 7.7 L (8.4-10.2) mg/dL Phosphorus 6.7 H (2.5-4.5) mg/dL Total Bilirubin (0.2-1.3) mg/dL Delta Bilirubin (0.0-0.2) mg/dL AST (17-59) U/L ALT (21-72) U/L Alkaline Phosphatase (38-126) U/L Troponin I (0.000-0.034) ng/mL Total Protein (6.3-8.2) g/dL Albumin (3.5-5.0) g/dL 10/17/16 10/17/16 Range/Units 06:25 06:40 WBC (3.8-10.6) k/uL RBC (4.30-5.90) m/uL Hgb (13.0-17.5) gm/dL Hct (39.0-53.0) % MCV (80.0-100.0) fL MCHC (31.0-37.0) g/dL RDW (11.5-15.5) % Plt Count (150-450) k/uL Neutrophils # (Manual) (1.3-7.7) k/uL Lymphocytes # (Manual) (1.0-4.8) k/uL Monocytes # (Manual) (0-1.0) k/uL Nucleated RBCs (0-0) /100 WBC PT (9.0-12.0) sec APTT (22.0-30.0) sec ABG pH (7.35-7.45) ABG pCO2 (35-45) mmHg ABG pO2 (83-108) mmHg ABG Total CO2 (19-24) mmol/L ABG O2 Saturation (94-97) % Potassium (3.5-5.1) mmol/L Carbon Dioxide (22-30) mmol/L BUN (9-20) mg/dL Creatinine (0.66-1.25) mg/dL Glucose (74-99) mg/dL POC Glucose (mg/dL) (75-99) mg/dL Plasma Lactic Acid Bernard 4.9 H* (0.7-2.0) mmol/L Calcium (8.4-10.2) mg/dL Phosphorus (2.5-4.5) mg/dL Total Bilirubin 1.6 H (0.2-1.3) mg/dL Delta Bilirubin 1.1 H (0.0-0.2) mg/dL AST 1262 H (17-59) U/L ALT 487 H (21-72) U/L Alkaline Phosphatase 131 H (38-126) U/L Troponin I (0.000-0.034) ng/mL Total Protein 5.0 L (6.3-8.2) g/dL Albumin 2.8 L (3.5-5.0) g/dL Microbiology - Last 24 Hours (Table) 10/15/16 19:33 Gram Stain - Final Sputum Sputum Culture - Final 10/15/16 19:35 Blood Culture - Preliminary Blood No Growth after 24 hours 10/15/16 19:27 Blood Culture - Preliminary Blood No Growth after 24 hours 10/15/16 21:30 Urine Culture - Preliminary Urine,Catheterized Assessment and Plan Plan: Acute hypoxic respiratory failure requiring mechanical ventilation Status post cardiopulmonary arrest: PEA, V. fib/V. tach Toxic metabolic encephalopathy Multiorgan failure Uremia Concern for anoxic brain injury Oliguric renal failure, requiring hemodialysis Chronic kidney disease stage III Severe lactic acidosis Septic versus cardiogenic shock Myeloproliferative disorder, with severe leukocytosis, possible leukostasis Coumadin coagulopathy Acute on Chronic anemia Anion gap metabolic acidosis Shock liver NSTEMI Hyperkalemia, persistent despite medical management UTI present on admission: Pseudomonas aeruginosa, pansensitive Seizure disorder with breakthrough seizures Chronic atrial fibrillation Mild pulmonary hypertension History of sick sinus syndrome, status post permanent pacemaker History of aortic valve replacement Continue full ventilator support, decrease RR and FiO2 Vasopressors to maintain map greater than 65, currently on hold Transfuse 2 units PRBC today HD per nephro Continue IV fluids, bicarb drip at 75 mL an hour Serial troponins Hematology consult Neurology recommendations Hold sedative medications Insulin sliding scale and blood sugar control Bronchodilators ABX: Rocephin, Zosyn Blood, urine, sputum cultures pending Continue tube feeding Monitor labs Hold anticoagulation, SCDs for DVT prophylaxis Protonix for GI prophylaxis Repeat CT brain after HD today Overall prognosis is extremely guarded at this time. Family is updated on the patient's condition. They are aware of multi organ failure and very poor prognosis. They are agreeable to DNR code status but continue other management at this time. If no improvement in condition or mental status in 24-48 hours, will re-discuss goals of care. CCT 37 min
--- NOTE | 2016-10-17 14:14 | PN ---
81-year-old gentleman who is admitted to ICU following an in-hospital cardiac arrest, currently on vent and is being dialyzed. They are dialyzing him carefully. He remains in A. fib with controlled ventricular rate. He is still on the vent and does not have any purposeful activity. He is being dialyzed. At times blood pressure is low, but otherwise doing well. Labs show a hemoglobin of 6.8. Potassium is 5.6. BUN is 110, creatinine 3.6. On exam, comfortable at rest. Chest exam reveals diminished air entry at the bases. Heart exam reveals first and second heart sounds. No gallop. No murmur. Exam of the extremities reveals 1+ edema. Peripheral pulses are felt. ASSESSMENT: 1. Status post cardiac arrest. 2. Chronic atrial fibrillation with controlled ventricular rate. 3. Sick sinus syndrome status post permanent pacemaker placement. 4. Aortic stenosis, status post replacement, chronic renal failure. Patient had an echo yesterday that shows normally functioning bioprosthetic valve with normal LV function. 5. Status post aVR, chronic atrial fibrillation with controlled ventricular rate. 6. Renal failure. PLAN: Patient's INR is 2.1. Continue on her current medical therapy. Prognosis guarded. So far there is no meaningful activity. Patient may have to be permanently weaned unless there is an improvement in his condition.
--- NOTE | 2016-10-17 14:47 | P.PN ---
Subjective This patient is a 81-year-old male who was seen today in the intensive care unit after he suffered a cardiopulmonary arrest on the medical floor yesterday. Patient was intubated and transferred to the intensive care unit. He was sent for a repeat computed tomography scan of the brain yesterday evening which came back negative for any evidence of acute stroke or hemorrhage. He was initially admitted to Hospital with new onset seizure due to subtherapeutic Dilantin level. His repeat Dilantin level today is therapeutic at 13.8. He remains intubated on the ventilator at this time. His urine culture is positive for E. coli and he is on appropriate antibiotics at this time. Patient will have a repeat EEG today for further evaluation of possible anoxic encephalopathy following cardiac arrest. Cardiology was consult for further evaluation. His Coumadin has been placed on hold due to an elevated INR. Patient did receive 2 units of packed red cells for severe anemia today. We are waiting the results of a 2-D echocardiogram. Troponins are being ordered to rule out myocardial infarction. Neurologically he remains intubated and obtunded at this time. We will need to complete his EEG today for further assessment of his anoxic encephalopathy. The patient is showing signs of multiorgan failure. He is scheduled to undergo dialysis today due to renal failure. Serum creatinine prior to hemodialysis today was 3.66. He will likely require hemodialysis tomorrow as well but we will await further recommendations from nephrology. We did review his EEG today which does reveal severe slowing and worsening compared to his previous study that was done yesterday. As noted his Dilantin level did come back therapeutic yesterday at 13.8. and he has had no further seizures. We did discuss his neurological findings today in detail with the patient's daughter at bedside. All of her questions were answered. We will continue supportive care for 48 hours with close monitoring in the ICU. Family will continue to monitor his progress closely in the ICU and will give further instructions to staff based on his progress. We will continue close neurological follow-up with this patient in the intensive care unit. We will plan to get a repeat Dilantin level tomorrow morning. Continue all supportive care measures for this patient. He has been made DO NOT RESUSCITATE status. His prognosis at this time remains very guarded. Objective - Vital Signs Vital signs: Vital Signs Temp 100.2 F H 10/17/16 12:34 Pulse 83 10/17/16 13:00 Resp 5 L 10/17/16 13:00 BP 101/46 10/17/16 13:00 Pulse Ox 100 10/17/16 13:00 Intake & Output 10/16/16 10/17/16 10/17/16 18:59 06:59 18:59 Intake Total 1684.23 1073.212 965 Output Total 30 30 0 Balance 1654.23 1043.212 965 Weight 92.1 kg 93.7 kg 93.7 kg Intake: IV 1025 900 375 Calcium Gluconate 1,000 100 mg In Sodium Chloride 0.9 % 100 ml @ 100 mls/hr IVPB ONCE ONE Rx#: [id number] Dextrose 5% in Water 1, 825 900 325 000 ml @ 75 mls/hr IV . [id number] ERICH with Sodium Bicarb (1 Meq/ml) 150 ml Rx#:[id number] cefTRIAXone 1,000 mg In 100 50 Sodium Chloride 0.9% 50 ml @ 100 mls/hr IVPB Q24HR ERICH Rx#:[id number] Intake, IV Titration 41.23 41.212 100 Amount ACETAMINOPHEN IV (For NPO 100 ) 1,000 mg In Empty Bag 1 bag @ 400 mls/hr IVPB Q6HR PRN Rx#:[id number] Norepinephrine 16 mg In 41.23 41.212 Sodium Chloride 0.9% 250 ml @ Titrate IV .Q0M ERICH Rx#:[id number] Tube Feeding 72 160 Blood Product 618 330 Ffp 24 Cpd Unit 330 [id number] Ffp 24 Cpd Unit 288 [id number] As-1 Unit 310 [id number] As-1 Unit 0 [id number] Other 60 Output: Urine 30 30 0 Other: Voiding Method Indwelling Catheter Indwelling Catheter Indwelling Catheter # Voids 0 0 - Exam Physical examination: PHYSICAL EXAMINATION: Patient is resting comfortably in bed. Patient is intubated on the ventilator in the ICU. VITAL SIGNS: Blood pressure is [101/46]. Heart rate is [64]. Respiration is [20] . Temperature is [100.2]. HEENT: Head is atraumatic, neck is supple, there were no carotid bruits. CHEST: Lungs are clear to auscultation and percussion. CARDIAC: S1, S2 normal rate and rhythm. There is no murmur. ABDOMEN: Soft and nontender. Bowel sounds are present. EXTREMITIES: There is no pedal edema. Peripheral pulses are present. Neurological examination: Patient is intubated on the ventilator and is unresponsive at this time. He does withdraw to painful stimuli. Pupils are 2 mm sluggishly reactive to light. Corneal response diminished bilaterally. Patient does seem to have mild disconjugate eye gaze. Patient withdraws to painful stimuli and nail bed pressure. Deep tendon reflexes are hypoactive 1+. Plantar response is flexor bilaterally. - Labs CBC & Chem 7: 10/17/16 06:25 10/17/16 06:25 Labs: Abnormal Lab Results - Last 24 Hours (Table) 10/16/16 10/16/16 10/16/16 Range/Units 14:38 14:38 18:12 WBC (3.8-10.6) k/uL RBC (4.30-5.90) m/uL Hgb (13.0-17.5) gm/dL Hct (39.0-53.0) % MCV (80.0-100.0) fL MCHC (31.0-37.0) g/dL RDW (11.5-15.5) % Plt Count (150-450) k/uL Neutrophils # (Manual) (1.3-7.7) k/uL Lymphocytes # (Manual) (1.0-4.8) k/uL Monocytes # (Manual) (0-1.0) k/uL Nucleated RBCs (0-0) /100 WBC PT 21.6 H (9.0-12.0) sec APTT 30.7 H (22.0-30.0) sec ABG pH (7.35-7.45) ABG pCO2 (35-45) mmHg ABG pO2 (83-108) mmHg ABG Total CO2 (19-24) mmol/L ABG O2 Saturation (94-97) % Potassium (3.5-5.1) mmol/L BUN (9-20) mg/dL Creatinine (0.66-1.25) mg/dL Glucose (74-99) mg/dL POC Glucose (mg/dL) 231 H (75-99) mg/dL Plasma Lactic Acid Bernard (0.7-2.0) mmol/L Calcium (8.4-10.2) mg/dL Phosphorus (2.5-4.5) mg/dL Total Bilirubin (0.2-1.3) mg/dL Delta Bilirubin (0.0-0.2) mg/dL AST (17-59) U/L ALT (21-72) U/L Alkaline Phosphatase (38-126) U/L Total Protein (6.3-8.2) g/dL Albumin (3.5-5.0) g/dL 10/16/16 10/17/16 10/17/16 Range/Units 22:50 00:33 04:46 WBC (3.8-10.6) k/uL RBC (4.30-5.90) m/uL Hgb (13.0-17.5) gm/dL Hct (39.0-53.0) % MCV (80.0-100.0) fL MCHC (31.0-37.0) g/dL RDW (11.5-15.5) % Plt Count (150-450) k/uL Neutrophils # (Manual) (1.3-7.7) k/uL Lymphocytes # (Manual) (1.0-4.8) k/uL Monocytes # (Manual) (0-1.0) k/uL Nucleated RBCs (0-0) /100 WBC PT (9.0-12.0) sec APTT (22.0-30.0) sec ABG pH 7.46 H (7.35-7.45) ABG pCO2 34 L (35-45) mmHg ABG pO2 179 H (83-108) mmHg ABG Total CO2 25 H (19-24) mmol/L ABG O2 Saturation 100.0 H (94-97) % Potassium 5.6 H (3.5-5.1) mmol/L BUN (9-20) mg/dL Creatinine (0.66-1.25) mg/dL Glucose (74-99) mg/dL POC Glucose (mg/dL) 218 H (75-99) mg/dL Plasma Lactic Acid Bernard (0.7-2.0) mmol/L Calcium (8.4-10.2) mg/dL Phosphorus 6.7 H (2.5-4.5) mg/dL Total Bilirubin (0.2-1.3) mg/dL Delta Bilirubin (0.0-0.2) mg/dL AST (17-59) U/L ALT (21-72) U/L Alkaline Phosphatase (38-126) U/L Total Protein (6.3-8.2) g/dL Albumin (3.5-5.0) g/dL 10/17/16 10/17/16 10/17/16 Range/Units 05:28 06:25 06:25 WBC 42.5 H* (3.8-10.6) k/uL RBC 2.19 L (4.30-5.90) m/uL Hgb 6.8 L* (13.0-17.5) gm/dL Hct 23.0 L (39.0-53.0) % MCV 104.8 H (80.0-100.0) fL MCHC 29.8 L (31.0-37.0) g/dL RDW 23.0 H (11.5-15.5) % Plt Count 146 L (150-450) k/uL Neutrophils # (Manual) 32.1 H (1.3-7.7) k/uL Lymphocytes # (Manual) 5.3 H (1.0-4.8) k/uL Monocytes # (Manual) 2.1 H (0-1.0) k/uL Nucleated RBCs 2 H (0-0) /100 WBC PT (9.0-12.0) sec APTT (22.0-30.0) sec ABG pH (7.35-7.45) ABG pCO2 (35-45) mmHg ABG pO2 (83-108) mmHg ABG Total CO2 (19-24) mmol/L ABG O2 Saturation (94-97) % Potassium 5.6 H (3.5-5.1) mmol/L BUN 110 H* (9-20) mg/dL Creatinine 3.66 H (0.66-1.25) mg/dL Glucose 208 H (74-99) mg/dL POC Glucose (mg/dL) 230 H (75-99) mg/dL Plasma Lactic Acid Bernard (0.7-2.0) mmol/L Calcium 7.7 L (8.4-10.2) mg/dL Phosphorus 6.7 H (2.5-4.5) mg/dL Total Bilirubin (0.2-1.3) mg/dL Delta Bilirubin (0.0-0.2) mg/dL AST (17-59) U/L ALT (21-72) U/L Alkaline Phosphatase (38-126) U/L Total Protein (6.3-8.2) g/dL Albumin (3.5-5.0) g/dL 10/17/16 10/17/16 10/17/16 Range/Units 06:25 06:25 06:40 WBC (3.8-10.6) k/uL RBC (4.30-5.90) m/uL Hgb (13.0-17.5) gm/dL Hct (39.0-53.0) % MCV (80.0-100.0) fL MCHC (31.0-37.0) g/dL RDW (11.5-15.5) % Plt Count (150-450) k/uL Neutrophils # (Manual) (1.3-7.7) k/uL Lymphocytes # (Manual) (1.0-4.8) k/uL Monocytes # (Manual) (0-1.0) k/uL Nucleated RBCs (0-0) /100 WBC PT 20.2 H (9.0-12.0) sec APTT (22.0-30.0) sec ABG pH (7.35-7.45) ABG pCO2 (35-45) mmHg ABG pO2 (83-108) mmHg ABG Total CO2 (19-24) mmol/L ABG O2 Saturation (94-97) % Potassium (3.5-5.1) mmol/L BUN (9-20) mg/dL Creatinine (0.66-1.25) mg/dL Glucose (74-99) mg/dL POC Glucose (mg/dL) (75-99) mg/dL Plasma Lactic Acid Bernard 4.9 H* (0.7-2.0) mmol/L Calcium (8.4-10.2) mg/dL Phosphorus (2.5-4.5) mg/dL Total Bilirubin 1.6 H (0.2-1.3) mg/dL Delta Bilirubin 1.1 H (0.0-0.2) mg/dL AST 1262 H (17-59) U/L ALT 487 H (21-72) U/L Alkaline Phosphatase 131 H (38-126) U/L Total Protein 5.0 L (6.3-8.2) g/dL Albumin 2.8 L (3.5-5.0) g/dL Microbiology - Last 24 Hours (Table) 10/15/16 19:33 Gram Stain - Final Sputum Sputum Culture - Final 10/15/16 19:35 Blood Culture - Preliminary Blood No Growth after 24 hours 10/15/16 19:27 Blood Culture - Preliminary Blood No Growth after 24 hours 10/15/16 21:30 Urine Culture - Preliminary Urine,Catheterized Assessment and Plan (1) Cardiopulmonary arrest Status: Acute Code(s): I46.9 - CARDIAC ARREST, CAUSE UNSPECIFIED (2) Breakthrough seizure Status: Acute Code(s): G40.919 - EPILEPSY, UNSP, INTRACTABLE, WITHOUT STATUS EPILEPTICUS Plan: This patient is a 81-year-old male who had a cardiopulmonary arrest yesterday on the medical floor. He was intubated and transferred to the ICU yesterday. He underwent a computed tomography scan of the brain yesterday which failed to reveal any acute changes. He had an EEG today which was reviewed and is consistent with a severe anoxic encephalopathy with no seizure activity noted. He is showing very little improvement in his neurological status on examination today. His case was discussed at length with the patient's daughter at bedside. He does have evidence of worsening neurological status as compared to yesterday. Family would like to continue all treatment measures at this time with all supportive care. We will continue to monitor his neurological status closely in the ICU. We may want to repeat an EEG in 24-48 hours depending on his progress. The daughter will update her mother the patient's in terms of his overall condition at this time in the ICU. The ICU nursing staff did update the patient's today at bedside. She is aware of his ongoing continued poor prognosis. He has been made DO NOT RESUSCITATE status. He is scheduled to have a repeat computed tomography scan of the brain today and we will await those results. We will recheck a Dilantin level tomorrow morning and adjust the dose as needed. We will continue close monitoring of the patient. He is showing signs of multiorgan failure and will be undergoing hemodialysis today. His serum creatinine prior to dialysis today was 3.66. Nephrology is monitoring his condition closely as well. He continues to demonstrate evidence of multiorgan failure. His overall prognosis at this time remains very guarded. We'll continue monitor his neurological status and progress closely in the intensive care unit.
--- NOTE | 2016-10-17 14:55 | PN ---
Patient is seen for follow-up for acute kidney injury which developed after cardiac arrest. Patient has been oliguric with severe hyperkalemia. He was dialyzed yesterday for his first treatment and patient is scheduled for hemodialysis today as well. He is currently not maintained on any sedation and has not had any significant improvement in in his mentation. At this time family is considering to continue with dialysis for another 1 to 2 days and then they will decide to most likely proceed with terminal wean if there remains no improvement in mentation. He is maintained on FiO2 at 50%. BUN is at 100 and serum creatinine at 3.6 mg/dL from today. Hemoglobin was down to 6.8. Patient has had some bleeding through his NG tube particularly at the time of admission; otherwise, no active bleeding noted at this time. On examination, patient is sedated on the vent. Blood pressure is 102/57, heart rate 79 per minute. He is afebrile. He has a fever up 100.2. Examination of the heart S1 and S2. Examination of the lungs: Bilateral breath sounds are heard. ABDOMEN: Soft. Examination of lower extremities shows no significant edema. SAMPLING EXPERT exam could not be performed. Labs show hemoglobin 6.8. White cell count 42.5, sodium 140, potassium 5.6, chloride 110, BUN 110, creatinine 3.6. Lactic acid is at 4.9. AST is 1262. ASSESSMENT: 1. Acute kidney injury, acute tubular necrosis, secondary to hypotension, hypoperfusion, currently oliguric. Post cardiac arrest. Status post first dialysis treatment yesterday. Patient will be dialyzed again today. Family to decide over the next 1 to 2 days regarding aggressiveness of care and possible terminal weaning if there is no further improvement in mentation. 2. Status post cardiac arrest. 3. Urinary tract infection with pseudomonas, maintained on antibiotics. 4. Hyperkalemia associated with acute kidney injury and underlying gastrointestinal bleed. 5. Anemia, most likely secondary to underlying gastrointestinal bleed No active bleeding noted. Patient is being transfused packed RBCs. PLAN: Repeat dialysis today and we will re-evaluate tomorrow for hemodialysis. He will likely have a treatment tomorrow and we can give him a break on Thursday.
[2016-10-17] MEDS: PIPERACILLIN-TAZOBACTAM 3.375 GM in DEXTROSE/WATER 1 50ML.BAG IVPB SCH (15:02)
[2016-10-17 15:05] LABS: Glucose,Whole Blood 178 mg/dL (75-99)
--- NOTE | 2016-10-17 17:05 | CT ---
EXAMINATION TYPE: CT brain wo con DATE OF EXAM: 10/17/2016 4:59 PM COMPARISON: Previous study dated 10/15/2016. HISTORY: Follow up, unresponsive. CT DLP: 1112.0 mGycm Automated exposure control for dose reduction was used. FINDINGS: There are generalized changes of sulcal prominence and ventriculomegaly, compatible with atrophic tamiko nge. There is diffuse white matter lucency, compatible small vessel ischemic change. There is no acute foc al lesion, mass effect or midline shift identified. I do not see evidence of intracranial blood. Ther e is mucoperiosteal thickening involving the left ethmoid air cells. There is an air-fluid level in t he left maxillary sinus and there is some mild mucoperiosteal thickening involving the right maxillar y sinus. The mastoid air cells are clear. No depressed skull fracture is seen. IMPRESSION: 1. NO ACUTE INTRACRANIAL ABNORMALITY. 2. ATROPHIC CHANGE. 3. CHRONIC WHITE MATTER ISCHEMIC CHANGE. 4. CHRONIC SINUS MUCOSAL DISEASE. 5. ACUTE LEFT MAXILLARY SINUSITIS.
[2016-10-17 17:36] LABS: Glucose,Whole Blood 181 mg/dL (75-99)
--- NOTE | 2016-10-17 17:40 | P.PN ---
Subjective Principal diagnosis: seizure disorder Patient is a 81 year old male with known history of seizure disorder maintained on Dilantin who was admitted to [facility] due to new seizure activity, Dilantin level on presentation was subtherapeutic, computed tomography scan of the brain did not reveal any evidence of intracranial bleeding. Family is giving a history of fall off a couch about 10 days ago. Patient was seen by neurology he has been receiving IV Dilantin boluses. Patient had cardiac arrest with prolonged code done, subsequently, he was admitted to intensive care unit intubated and started on mechanical ventilation , there is questionable anoxic encephalopathy. Neurology consult pulmonary and critical care and cardiology consult are following. Objective - Vital Signs Vital signs: Vital Signs Temp 99.0 F 10/17/16 16:00 Pulse 88 10/17/16 16:00 Resp 20 10/17/16 16:00 BP 105/56 10/17/16 16:00 Pulse Ox 100 10/17/16 16:00 Intake & Output 10/16/16 10/17/16 10/17/16 18:59 06:59 18:59 Intake Total 1684.23 4696.198 6535 Output Total 30 30 1000 Balance 1654.23 1043.212 295 Weight 92.1 kg 93.7 kg 93.7 kg Intake: IV 1025 900 395 Calcium Gluconate 1,000 100 mg In Sodium Chloride 0.9 % 100 ml @ 100 mls/hr IVPB ONCE ONE Rx#: [id number] Dextrose 5% in Water 1, 825 900 345 000 ml @ 75 mls/hr IV . [id number] ERICH with Sodium Bicarb (1 Meq/ml) 150 ml Rx#:[id number] cefTRIAXone 1,000 mg In 100 50 Sodium Chloride 0.9% 50 ml @ 100 mls/hr IVPB Q24HR ERICH Rx#:[id number] Intake, IV Titration 41.23 41.212 100 Amount ACETAMINOPHEN IV (For NPO 100 ) 1,000 mg In Empty Bag 1 bag @ 400 mls/hr IVPB Q6HR PRN Rx#:[id number] Norepinephrine 16 mg In 41.23 41.212 Sodium Chloride 0.9% 250 ml @ Titrate IV .Q0M ERICH Rx#:[id number] Tube Feeding 72 160 Blood Product 618 640 Ffp 24 Cpd Unit 330 [id number] Ffp 24 Cpd Unit 288 [id number] Rc As-1 Unit 310 [id number] Rc As-1 Unit 310 [id number] Other 60 Output: Urine 30 30 0 Other 1000 Other: Voiding Method Indwelling Catheter Indwelling Catheter Indwelling Catheter # Voids 0 0 - Exam In general patient is somnolent and arousable in no apparent distress HEENT without any acute abnormality Neck is supple no JVD no goiter no lymphadenopathy Chest exam reveals a few scattered crackles bilaterally no wheezing Cardiac exam reveals regular heart sounds no gallops no murmurs Abdomen is soft nontender no organomegaly Extremity exam reveals no edema no cyanosis or clubbing there is a large bruise over the right hip area - Labs CBC & Chem 7: 10/17/16 06:25 10/17/16 06:25 Labs: Abnormal Lab Results - Last 24 Hours (Table) 10/16/16 10/16/16 10/17/16 Range/Units 18:12 22:50 00:33 WBC (3.8-10.6) k/uL RBC (4.30-5.90) m/uL Hgb (13.0-17.5) gm/dL Hct (39.0-53.0) % MCV (80.0-100.0) fL MCHC (31.0-37.0) g/dL RDW (11.5-15.5) % Plt Count (150-450) k/uL Neutrophils # (Manual) (1.3-7.7) k/uL Lymphocytes # (Manual) (1.0-4.8) k/uL Monocytes # (Manual) (0-1.0) k/uL Nucleated RBCs (0-0) /100 WBC PT (9.0-12.0) sec ABG pH (7.35-7.45) ABG pCO2 (35-45) mmHg ABG pO2 (83-108) mmHg ABG Total CO2 (19-24) mmol/L ABG O2 Saturation (94-97) % Potassium 5.6 H (3.5-5.1) mmol/L BUN (9-20) mg/dL Creatinine (0.66-1.25) mg/dL Glucose (74-99) mg/dL POC Glucose (mg/dL) 231 H 218 H (75-99) mg/dL Plasma Lactic Acid Bernard (0.7-2.0) mmol/L Calcium (8.4-10.2) mg/dL Phosphorus 6.7 H (2.5-4.5) mg/dL Total Bilirubin (0.2-1.3) mg/dL Delta Bilirubin (0.0-0.2) mg/dL AST (17-59) U/L ALT (21-72) U/L Alkaline Phosphatase (38-126) U/L Total Protein (6.3-8.2) g/dL Albumin (3.5-5.0) g/dL 10/17/16 10/17/16 10/17/16 Range/Units 04:46 05:28 06:25 WBC (3.8-10.6) k/uL RBC (4.30-5.90) m/uL Hgb (13.0-17.5) gm/dL Hct (39.0-53.0) % MCV (80.0-100.0) fL MCHC (31.0-37.0) g/dL RDW (11.5-15.5) % Plt Count (150-450) k/uL Neutrophils # (Manual) (1.3-7.7) k/uL Lymphocytes # (Manual) (1.0-4.8) k/uL Monocytes # (Manual) (0-1.0) k/uL Nucleated RBCs (0-0) /100 WBC PT (9.0-12.0) sec ABG pH 7.46 H (7.35-7.45) ABG pCO2 34 L (35-45) mmHg ABG pO2 179 H (83-108) mmHg ABG Total CO2 25 H (19-24) mmol/L ABG O2 Saturation 100.0 H (94-97) % Potassium 5.6 H (3.5-5.1) mmol/L BUN 110 H* (9-20) mg/dL Creatinine 3.66 H (0.66-1.25) mg/dL Glucose 208 H (74-99) mg/dL POC Glucose (mg/dL) 230 H (75-99) mg/dL Plasma Lactic Acid Bernard (0.7-2.0) mmol/L Calcium 7.7 L (8.4-10.2) mg/dL Phosphorus 6.7 H (2.5-4.5) mg/dL Total Bilirubin (0.2-1.3) mg/dL Delta Bilirubin (0.0-0.2) mg/dL AST (17-59) U/L ALT (21-72) U/L Alkaline Phosphatase (38-126) U/L Total Protein (6.3-8.2) g/dL Albumin (3.5-5.0) g/dL 10/17/16 10/17/16 10/17/16 Range/Units 06:25 06:25 06:25 WBC 42.5 H* (3.8-10.6) k/uL RBC 2.19 L (4.30-5.90) m/uL Hgb 6.8 L* (13.0-17.5) gm/dL Hct 23.0 L (39.0-53.0) % MCV 104.8 H (80.0-100.0) fL MCHC 29.8 L (31.0-37.0) g/dL RDW 23.0 H (11.5-15.5) % Plt Count 146 L (150-450) k/uL Neutrophils # (Manual) 32.1 H (1.3-7.7) k/uL Lymphocytes # (Manual) 5.3 H (1.0-4.8) k/uL Monocytes # (Manual) 2.1 H (0-1.0) k/uL Nucleated RBCs 2 H (0-0) /100 WBC PT 20.2 H (9.0-12.0) sec ABG pH (7.35-7.45) ABG pCO2 (35-45) mmHg ABG pO2 (83-108) mmHg ABG Total CO2 (19-24) mmol/L ABG O2 Saturation (94-97) % Potassium (3.5-5.1) mmol/L BUN (9-20) mg/dL Creatinine (0.66-1.25) mg/dL Glucose (74-99) mg/dL POC Glucose (mg/dL) (75-99) mg/dL Plasma Lactic Acid Bernard (0.7-2.0) mmol/L Calcium (8.4-10.2) mg/dL Phosphorus (2.5-4.5) mg/dL Total Bilirubin 1.6 H (0.2-1.3) mg/dL Delta Bilirubin 1.1 H (0.0-0.2) mg/dL AST 1262 H (17-59) U/L ALT 487 H (21-72) U/L Alkaline Phosphatase 131 H (38-126) U/L Total Protein 5.0 L (6.3-8.2) g/dL Albumin 2.8 L (3.5-5.0) g/dL 10/17/16 10/17/16 Range/Units 06:40 14:57 WBC (3.8-10.6) k/uL RBC (4.30-5.90) m/uL Hgb (13.0-17.5) gm/dL Hct (39.0-53.0) % MCV (80.0-100.0) fL MCHC (31.0-37.0) g/dL RDW (11.5-15.5) % Plt Count (150-450) k/uL Neutrophils # (Manual) (1.3-7.7) k/uL Lymphocytes # (Manual) (1.0-4.8) k/uL Monocytes # (Manual) (0-1.0) k/uL Nucleated RBCs (0-0) /100 WBC PT (9.0-12.0) sec ABG pH (7.35-7.45) ABG pCO2 (35-45) mmHg ABG pO2 (83-108) mmHg ABG Total CO2 (19-24) mmol/L ABG O2 Saturation (94-97) % Potassium (3.5-5.1) mmol/L BUN (9-20) mg/dL Creatinine (0.66-1.25) mg/dL Glucose (74-99) mg/dL POC Glucose (mg/dL) 178 H (75-99) mg/dL Plasma Lactic Acid Bernard 4.9 H* (0.7-2.0) mmol/L Calcium (8.4-10.2) mg/dL Phosphorus (2.5-4.5) mg/dL Total Bilirubin (0.2-1.3) mg/dL Delta Bilirubin (0.0-0.2) mg/dL AST (17-59) U/L ALT (21-72) U/L Alkaline Phosphatase (38-126) U/L Total Protein (6.3-8.2) g/dL Albumin (3.5-5.0) g/dL Microbiology - Last 24 Hours (Table) 10/15/16 21:30 Urine Culture - Preliminary Urine,Catheterized Gram Neg Bacilli 10/15/16 19:33 Gram Stain - Final Sputum Sputum Culture - Final 10/15/16 19:35 Blood Culture - Preliminary Blood No Growth after 24 hours 10/15/16 19:27 Blood Culture - Preliminary Blood No Growth after 24 hours Assessment and Plan Plan: #1 seizure activity in a patient with known history of seizure disorder maintained on Dilantin with low Dilantin level at 4.7 on presentation Patient is receiving IV Dilantin bolus #2 cardiac arrest with prolonged code done, with subsequent admission to intensive care unit, patient is intubated and maintained on mechanical ventilation underlying history of atrial fibrillation heart rate is well- controlled, patient was maintained on Coumadin at home for stroke prophylaxis his INR on presentation was therapeutic at 2.0 #3 chronic kidney disease stage IV followed as outpatient by Dr. Barnhart #4 hypertension well-controlled on current medication #5 severe pulmonary hypertension with bilateral lower extremity edema and ascites without any clear evidence of liver disease #[address] Toth #7 history of cardiac arrhythmia was previous history of permanent pacemaker placement #8 recent fall, was bruising around the right hip area Will obtain x-ray of the right hip #9 possible anoxic encephalopathy neurology consult was requested, EEG was ordered At this time plan to continue was current management adjust Dilantin dose and keep patient on seizure precautions will follow closely
[2016-10-17] MEDS: SODIUM CHLORIDE 0.9% 1,000 ML IV SCH (17:56)
[2016-10-17 23:19] LABS: Glucose,Whole Blood 245 mg/dL (75-99)
[2016-10-18 00:27] LABS: Glucose,Whole Blood 254 mg/dL (75-99)
[2016-10-18] MEDS: PHENYTOIN SODIUM INJ 50 MG/ML 2 ML VIAL IV SCH ×3 (00:27→12:10)
[2016-10-18] MEDS: PIPERACILLIN-TAZOBACTAM 3.375 GM in DEXTROSE/WATER 1 50ML.BAG IVPB SCH ×2 (00:27→12:10)
[2016-10-18] MEDS: INSULIN LISPRO (humaLOG) 300 UNIT/3 ML VIAL SQ SCH ×3 (00:27→12:10)
[2016-10-18 05:22] LABS: Anisocytosis Moderate; CH 31.4; CHCM 31.5; HCT 27.7 % (39.0-53.0); HDW 3.96; Hypochromasia Moderate; Immature Gran Flag Marked; Large Platelets Flag Marked; MCH 32.1 pg (25.0-35.0); MCHC 31.8 g/dL (31.0-37.0); MCV 100.8 fL (80.0-100.0); Macrocytosis Moderate; Mean Platelet Volume 12.4; Poikilocytosis Slight; RBC 2.75 m/uL (4.30-5.90); RDW 22.8 % (11.5-15.5); WBC (Perox) 36.42
[2016-10-18 05:27] LABS: HGB 8.8 gm/dL (13.0-17.5)
[2016-10-18 05:28] LABS: INR 1.8 (<1.1); Prothrombin Time 17.4 sec (9.0-12.0)
[2016-10-18 05:36] LABS: Phosphorous 5.2 mg/dL (2.5-4.5)
[2016-10-18 05:37] LABS: Glucose,Whole Blood 181 mg/dL (75-99)
[2016-10-18 06:01] LABS: Hepatitis B Surface Ag Index 0.15
[2016-10-18 06:20] LABS: Hepatitis B Surface Antibody Negative (Negative)
[2016-10-18 06:32] LABS: Calcium 7.6 mg/dL (8.4-10.2); Potassium 4.5 mmol/L (3.5-5.1); Total Bilirubin 1.6 mg/dL (0.2-1.3); Total Protein 4.8 g/dL (6.3-8.2)
[2016-10-18 06:50] LABS: Add Differential Manual Differential
[2016-10-18 07:02] LABS: Nucleated Red Blood Cells 1 /100 WBC (0-0); Total Cells Counted 200
[2016-10-18 07:03] LABS: Polychromasia Present; Tear Drop Cells Present
[2016-10-18 07:05] LABS: Manual Review Performed
--- NOTE | 2016-10-18 07:41 | P.PN ---
Subjective Followup for THOM. Family at [facility]. Chart reviewed. Mr. Jones has oliguric THOM due to severe Ischemic ATN from cardiac arrest. He has received HD the past two days. Objective - Vital Signs Vital signs: Vital Signs Temp 98.5 F 10/18/16 04:00 Pulse 79 10/18/16 07:00 Resp 20 10/18/16 07:00 BP 101/42 10/18/16 07:00 Pulse Ox 100 10/18/16 07:00 Intake & Output 10/17/16 10/18/16 10/18/16 18:59 06:59 18:59 Intake Total 1403 210.0 20 Output Total 1000 127 5 Balance 403 83.0 15 Weight 93.7 kg 95 kg Intake: IV 475 160 20 Dextrose 5% in Water 1, 345 000 ml @ 75 mls/hr IV . [id number] ERICH with Sodium Bicarb (1 Meq/ml) 150 ml Rx#:[id number] Sodium Chloride 0.9% 1, 80 160 20 000 ml @ 20 mls/hr IV . Q24H ERICH Rx#:[id number] cefTRIAXone 1,000 mg In 50 Sodium Chloride 0.9% 50 ml @ 100 mls/hr IVPB Q24HR ERICH Rx#:[id number] Intake, IV Titration 100 50.0 Amount ACETAMINOPHEN IV (For NPO 100 ) 1,000 mg In Empty Bag 1 bag @ 400 mls/hr IVPB Q6HR PRN Rx#:[id number] Piperacillin-Tazobactam 3 50.0 .375 gm In Dextrose/Water 1 50ml.bag @ 12.5 mls/hr IVPB Q12H ERICH Rx#: [id number] Tube Feeding 188 Blood Product 640 Rc As-1 Unit 310 [id number] Rc As-1 Unit 310 [id number] Output: Urine 0 127 5 Other 1000 Other: Voiding Method Indwelling Catheter Indwelling Catheter # Voids 0 - Constitutional General appearance: Present: no acute distress - Respiratory Respiratory: bilateral: CTA - Cardiovascular Rhythm: regular Heart sounds: normal: S1, S2 - Peripheral edema leg Peripheral Edema: bilateral: None - Gastrointestinal General gastrointestinal: Present: soft - Labs CBC & Chem 7: 10/18/16 05:10 10/18/16 05:10 Labs: Abnormal Lab Results - Last 24 Hours (Table) 10/17/16 10/17/16 10/17/16 Range/Units 06:25 14:57 17:34 WBC (3.8-10.6) k/uL RBC (4.30-5.90) m/uL Hgb (13.0-17.5) gm/dL Hct (39.0-53.0) % MCV (80.0-100.0) fL RDW (11.5-15.5) % Plt Count (150-450) k/uL Neutrophils # (Manual) (1.3-7.7) k/uL Lymphocytes # (Manual) (1.0-4.8) k/uL Monocytes # (Manual) (0-1.0) k/uL Nucleated RBCs (0-0) /100 WBC PT (9.0-12.0) sec BUN (9-20) mg/dL Creatinine (0.66-1.25) mg/dL Glucose (74-99) mg/dL POC Glucose (mg/dL) 178 H 181 H (75-99) mg/dL Calcium (8.4-10.2) mg/dL Phosphorus (2.5-4.5) mg/dL Total Bilirubin 1.6 H (0.2-1.3) mg/dL Delta Bilirubin 1.1 H (0.0-0.2) mg/dL AST 1262 H (17-59) U/L ALT 487 H (21-72) U/L Alkaline Phosphatase 131 H (38-126) U/L Total Protein 5.0 L (6.3-8.2) g/dL Albumin 2.8 L (3.5-5.0) g/dL 10/17/16 10/18/16 10/18/16 Range/Units 23:17 00:26 05:10 WBC (3.8-10.6) k/uL RBC (4.30-5.90) m/uL Hgb (13.0-17.5) gm/dL Hct (39.0-53.0) % MCV (80.0-100.0) fL RDW (11.5-15.5) % Plt Count (150-450) k/uL Neutrophils # (Manual) (1.3-7.7) k/uL Lymphocytes # (Manual) (1.0-4.8) k/uL Monocytes # (Manual) (0-1.0) k/uL Nucleated RBCs (0-0) /100 WBC PT (9.0-12.0) sec BUN (9-20) mg/dL Creatinine (0.66-1.25) mg/dL Glucose (74-99) mg/dL POC Glucose (mg/dL) 245 H 254 H (75-99) mg/dL Calcium (8.4-10.2) mg/dL Phosphorus 5.2 H (2.5-4.5) mg/dL Total Bilirubin (0.2-1.3) mg/dL Delta Bilirubin (0.0-0.2) mg/dL AST (17-59) U/L ALT (21-72) U/L Alkaline Phosphatase (38-126) U/L Total Protein (6.3-8.2) g/dL Albumin (3.5-5.0) g/dL 10/18/16 10/18/16 10/18/16 Range/Units 05:10 05:10 05:10 WBC 35.0 H* (3.8-10.6) k/uL RBC 2.75 L (4.30-5.90) m/uL Hgb 8.8 L D (13.0-17.5) gm/dL Hct 27.7 L (39.0-53.0) % MCV 100.8 H (80.0-100.0) fL RDW 22.8 H (11.5-15.5) % Plt Count 109 L (150-450) k/uL Neutrophils # (Manual) 28.4 H (1.3-7.7) k/uL Lymphocytes # (Manual) 0.7 L (1.0-4.8) k/uL Monocytes # (Manual) 2.5 H (0-1.0) k/uL Nucleated RBCs 1 H (0-0) /100 WBC PT 17.4 H (9.0-12.0) sec BUN 85 H* (9-20) mg/dL Creatinine 3.12 H (0.66-1.25) mg/dL Glucose 165 H (74-99) mg/dL POC Glucose (mg/dL) (75-99) mg/dL Calcium 7.6 L (8.4-10.2) mg/dL Phosphorus (2.5-4.5) mg/dL Total Bilirubin 1.6 H (0.2-1.3) mg/dL Delta Bilirubin (0.0-0.2) mg/dL AST 1452 H (17-59) U/L ALT 643 H (21-72) U/L Alkaline Phosphatase 151 H (38-126) U/L Total Protein 4.8 L (6.3-8.2) g/dL Albumin 2.5 L (3.5-5.0) g/dL 10/18/16 Range/Units 05:36 WBC (3.8-10.6) k/uL RBC (4.30-5.90) m/uL Hgb (13.0-17.5) gm/dL Hct (39.0-53.0) % MCV (80.0-100.0) fL RDW (11.5-15.5) % Plt Count (150-450) k/uL Neutrophils # (Manual) (1.3-7.7) k/uL Lymphocytes # (Manual) (1.0-4.8) k/uL Monocytes # (Manual) (0-1.0) k/uL Nucleated RBCs (0-0) /100 WBC PT (9.0-12.0) sec BUN (9-20) mg/dL Creatinine (0.66-1.25) mg/dL Glucose (74-99) mg/dL POC Glucose (mg/dL) 181 H (75-99) mg/dL Calcium (8.4-10.2) mg/dL Phosphorus (2.5-4.5) mg/dL Total Bilirubin (0.2-1.3) mg/dL Delta Bilirubin (0.0-0.2) mg/dL AST (17-59) U/L ALT (21-72) U/L Alkaline Phosphatase (38-126) U/L Total Protein (6.3-8.2) g/dL Albumin (3.5-5.0) g/dL Microbiology - Last 24 Hours (Table) 10/15/16 19:35 Blood Culture - Preliminary Blood No Growth after 48 hours 10/15/16 19:27 Blood Culture - Preliminary Blood No Growth after 48 hours 10/15/16 21:30 Urine Culture - Preliminary Urine,Catheterized Gram Neg Bacilli 10/15/16 19:33 Gram Stain - Final Sputum Sputum Culture - Final Assessment and Plan Plan: Assessment: #1. Oliguric acute kidney injury secondary to ischemic ATN due to cardiac arrest. --Will dialyze today. Spoke with family at length, regarding poor prognosis. #2. 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 #3. Hyperkalemia secondary to acute kidney injury as well as metabolic acidosis. --Resolved #4. Cardiac arrest with likely anoxic encephalopathy. #5. Hypotension-Bp stable. #6. Seizure disorder.
[2016-10-18] MEDS: IPRATROPIUM-ALBUTEROL 3 ML NEB INHALATION SCH ×2 (08:00→16:54)
[2016-10-18] MEDS: SODIUM CHLORIDE 0.9% 1,000 ML IV SCH (08:26)
[2016-10-18] MEDS: CHLORHEXIDINE GLUCONATE 15 ML CUP MUCOUS MEM SCH (08:27)
[2016-10-18] MEDS: PANTOPRAZOLE 40 MG/10 ML VIAL IVP SCH (08:27)
[2016-10-18] MEDS: ACETAMINOPHEN IV (For NPO) 1,000 MG in EMPTY BAG 1 BAG IVPB PRN (08:52)
--- NOTE | 2016-10-18 09:05 | XR ---
EXAMINATION TYPE: XR chest 1V portable DATE OF EXAM: 10/18/2016 6:55 AM COMPARISON: 10/17/2016 INDICATION: Difficulty breathing line placement TECHNIQUE: Single frontal view of the chest is obtained. FINDINGS: The heart size is normal. The pulmonary vasculature is normal. Mild left basilar infiltrate may be present. Right basilar infiltrate is improved. Stent is in the mi d cardiac region. Endotracheal tube is present 1.6 cm above the ramses. Nasogastric tube transverses the thorax. Pacemaker overlies left chest IMPRESSION: 1. Mild left basilar infiltrate. Resolving right basilar infiltrate. 2. Lines and catheters discussed above
--- NOTE | 2016-10-18 11:51 | PN ---
A 81-year-old gentleman who had an in-hospital cardiac arrest, seemed to have suffered hypoxic encephalopathy, currently in ICU, intubated on vent. Remains in stable rhythm. Did not have any further episodes of tachy or jessica arrhythmias. His INR is 1.8, but Coumadin is on hold. He is being dialyzed and so far there is no spontaneous activity. On exam, heart rate is 77 beats per minute, blood pressure is 90/40, respiratory rate is 18. Chest exam reveals good air entry bilaterally. Heart exam reveals first and second heart sounds. No gallop. Exam of the extremities reveals 1+ edema. Peripheral pulses are felt. Labs show a hemoglobin of 8.8. White cell count is 35 INR is 1.8. Potassium is 4.5, BUN and creatinine are elevated at 85 and 3.12. ASSESSMENT: 1. End-stage renal disease on hemodialysis. 2. Status post cardiac arrest. 3. History of atrial fibrillation. 4. Possible hypoxic encephalopathy. We will continue with the current supportive care. His prognosis is guarded.
[2016-10-18 11:54] LABS: Glucose,Whole Blood 186 mg/dL (75-99)
--- NOTE | 2016-10-18 12:56 | P.PN ---
Subjective Principal diagnosis: Status post cardiopulmonary arrest Patient seen and examined in the ICU with nursing staff at bedside. Patient is extremely edematous and is weeping. The patient has been anuric. He did have a temperature of 102 this morning. He was given IV Tylenol and ice. His temperature is now down to 99. Infectious disease has been consult. Per nephrology plan for hemodialysis again today. The patient's mentation however has not improved. This will be discussed with the family. Objective - Vital Signs Vital signs: Vital Signs Temp 102.4 F H 10/18/16 10:30 Pulse 77 10/18/16 11:00 Resp 20 10/18/16 11:00 BP 90/43 10/18/16 11:00 Pulse Ox 100 10/18/16 11:00 Intake & Output 10/17/16 10/18/16 10/18/16 18:59 06:59 18:59 Intake Total 1403 210.0 444 Output Total 1000 127 21 Balance 403 83.0 423 Weight 93.7 kg 95 kg Intake: IV 475 160 140 Dextrose 5% in Water 1, 345 000 ml @ 75 mls/hr IV . [id number] ERICH with Sodium Bicarb (1 Meq/ml) 150 ml Rx#:[id number] Sodium Chloride 0.9% 1, 80 160 90 000 ml @ 20 mls/hr IV . Q24H RE[facility] Rx#:[id number] cefTRIAXone 1,000 mg In 50 50 Sodium Chloride 0.9% 50 ml @ 100 mls/hr IVPB Q24HR ERICH Rx#:[id number] Intake, IV Titration 100 50.0 100 Amount ACETAMINOPHEN IV (For NPO 100 100 ) 1,000 mg In Empty Bag 1 bag @ 400 mls/hr IVPB Q6HR PRN Rx#:[id number] Piperacillin-Tazobactam 3 50.0 .375 gm In Dextrose/Water 1 50ml.bag @ 12.5 mls/hr IVPB Q12H ERICH Rx#: [id number] Tube Feeding 188 174 Blood Product 640 Rc As-1 Unit 310 [id number] Rc As-1 Unit 310 [id number] Other 30 Output: Urine 0 127 21 Other 1000 Other: Voiding Method Indwelling Catheter Indwelling Catheter Indwelling Catheter # Voids 0 2 - Exam Gen.: Patient is on mechanical ventilator support, he has not received any sedative medications, He does try to chew on the ET tube however he has cough and gag, he was not responding to noxious stimuli Cardiovascular: Regular rate and rhythm, S1/S2 Lungs: Coarse breath sounds bilaterally Abdomen: Soft nontender nondistended positive bowel sounds Extremities: 3+ pitting edema bilaterally, anasarca diffusely - Labs CBC & Chem 7: 10/18/16 05:10 10/18/16 05:10 Labs: Abnormal Lab Results - Last 24 Hours (Table) 10/17/16 10/17/16 10/17/16 Range/Units 14:57 17:34 23:17 WBC (3.8-10.6) k/uL RBC (4.30-5.90) m/uL Hgb (13.0-17.5) gm/dL Hct (39.0-53.0) % MCV (80.0-100.0) fL RDW (11.5-15.5) % Plt Count (150-450) k/uL Neutrophils # (Manual) (1.3-7.7) k/uL Lymphocytes # (Manual) (1.0-4.8) k/uL Monocytes # (Manual) (0-1.0) k/uL Nucleated RBCs (0-0) /100 WBC PT (9.0-12.0) sec BUN (9-20) mg/dL Creatinine (0.66-1.25) mg/dL Glucose (74-99) mg/dL POC Glucose (mg/dL) 178 H 181 H 245 H (75-99) mg/dL Calcium (8.4-10.2) mg/dL Phosphorus (2.5-4.5) mg/dL Total Bilirubin (0.2-1.3) mg/dL AST (17-59) U/L ALT (21-72) U/L Alkaline Phosphatase (38-126) U/L Total Protein (6.3-8.2) g/dL Albumin (3.5-5.0) g/dL 10/18/16 10/18/16 10/18/16 Range/Units 00:26 05:10 05:10 WBC 35.0 H* (3.8-10.6) k/uL RBC 2.75 L (4.30-5.90) m/uL Hgb 8.8 L D (13.0-17.5) gm/dL Hct 27.7 L (39.0-53.0) % MCV 100.8 H (80.0-100.0) fL RDW 22.8 H (11.5-15.5) % Plt Count 109 L (150-450) k/uL Neutrophils # (Manual) 28.4 H (1.3-7.7) k/uL Lymphocytes # (Manual) 0.7 L (1.0-4.8) k/uL Monocytes # (Manual) 2.5 H (0-1.0) k/uL Nucleated RBCs 1 H (0-0) /100 WBC PT (9.0-12.0) sec BUN (9-20) mg/dL Creatinine (0.66-1.25) mg/dL Glucose (74-99) mg/dL POC Glucose (mg/dL) 254 H (75-99) mg/dL Calcium (8.4-10.2) mg/dL Phosphorus 5.2 H (2.5-4.5) mg/dL Total Bilirubin (0.2-1.3) mg/dL AST (17-59) U/L ALT (21-72) U/L Alkaline Phosphatase (38-126) U/L Total Protein (6.3-8.2) g/dL Albumin (3.5-5.0) g/dL 10/18/16 10/18/16 10/18/16 Range/Units 05:10 05:10 05:36 WBC (3.8-10.6) k/uL RBC (4.30-5.90) m/uL Hgb (13.0-17.5) gm/dL Hct (39.0-53.0) % MCV (80.0-100.0) fL RDW (11.5-15.5) % Plt Count (150-450) k/uL Neutrophils # (Manual) (1.3-7.7) k/uL Lymphocytes # (Manual) (1.0-4.8) k/uL Monocytes # (Manual) (0-1.0) k/uL Nucleated RBCs (0-0) /100 WBC PT 17.4 H (9.0-12.0) sec BUN 85 H* (9-20) mg/dL Creatinine 3.12 H (0.66-1.25) mg/dL Glucose 165 H (74-99) mg/dL POC Glucose (mg/dL) 181 H (75-99) mg/dL Calcium 7.6 L (8.4-10.2) mg/dL Phosphorus (2.5-4.5) mg/dL Total Bilirubin 1.6 H (0.2-1.3) mg/dL AST 1452 H (17-59) U/L ALT 643 H (21-72) U/L Alkaline Phosphatase 151 H (38-126) U/L Total Protein 4.8 L (6.3-8.2) g/dL Albumin 2.5 L (3.5-5.0) g/dL 10/18/16 Range/Units 11:50 WBC (3.8-10.6) k/uL RBC (4.30-5.90) m/uL Hgb (13.0-17.5) gm/dL Hct (39.0-53.0) % MCV (80.0-100.0) fL RDW (11.5-15.5) % Plt Count (150-450) k/uL Neutrophils # (Manual) (1.3-7.7) k/uL Lymphocytes # (Manual) (1.0-4.8) k/uL Monocytes # (Manual) (0-1.0) k/uL Nucleated RBCs (0-0) /100 WBC PT (9.0-12.0) sec BUN (9-20) mg/dL Creatinine (0.66-1.25) mg/dL Glucose (74-99) mg/dL POC Glucose (mg/dL) 186 H (75-99) mg/dL Calcium (8.4-10.2) mg/dL Phosphorus (2.5-4.5) mg/dL Total Bilirubin (0.2-1.3) mg/dL AST (17-59) U/L ALT (21-72) U/L Alkaline Phosphatase (38-126) U/L Total Protein (6.3-8.2) g/dL Albumin (3.5-5.0) g/dL Microbiology - Last 24 Hours (Table) 10/15/16 21:30 Urine Culture - Final Urine,Catheterized Pseudomonas aeruginosa 10/15/16 19:35 Blood Culture - Preliminary Blood No Growth after 48 hours 10/15/16 19:27 Blood Culture - Preliminary Blood No Growth after 48 hours 10/15/16 19:33 Gram Stain - Final Sputum Sputum Culture - Final Assessment and Plan Plan: Acute hypoxic respiratory failure requiring mechanical ventilation Status post cardiopulmonary arrest: PEA, V. fib/V. tach Toxic metabolic encephalopathy Multiorgan failure Uremia Concern for anoxic brain injury Oliguric renal failure, requiring hemodialysis Chronic kidney disease stage III Severe lactic acidosis Septic versus cardiogenic shock Myeloproliferative disorder, with severe leukocytosis, possible leukostasis Coumadin coagulopathy Acute on Chronic anemia Anion gap metabolic acidosis Shock liver NSTEMI Hyperkalemia, persistent despite medical management UTI present on admission: Pseudomonas aeruginosa, pansensitive Seizure disorder with breakthrough seizures Chronic atrial fibrillation Mild pulmonary hypertension History of sick sinus syndrome, status post permanent pacemaker History of aortic valve replacement Continue full ventilator support Vasopressors to maintain map greater than 65, currently on hold, may need to be reinitiated for HD HD per nephro DC Bicarb drip Neurology recommendations Hold sedative medications Insulin sliding scale and blood sugar control Bronchodilators ABX: Rocephin, Zosyn Consult ID Blood, urine, sputum cultures pending Continue tube feeding Monitor labs Hold anticoagulation, SCDs for DVT prophylaxis Protonix for GI prophylaxis Overall prognosis is extremely poor at this time. DNR code status.
[2016-10-18] MEDS ORDERED: DRY MOUTH SPRAY 44.3 SPRAY/44.3 ML SPRAY MUCOUS MEM PRN (13:22)
[2016-10-18] MEDS ORDERED: SCOPOLAMINE 1.5MG/72HR PATCH TRANSDERM PRN (13:22)
[2016-10-18] MEDS ORDERED: ARTIFICIAL TEARS-HYPROMELLOSE DROPS 15 ML BTL BOTH EYES PRN (13:22)
[2016-10-18] MEDS ORDERED: ACETAMINOPHEN SUPPOSITORY 650 MG SUPP RECTAL PRN (13:22)
--- NOTE | 2016-10-18 13:22 | P.PN ---
Progress Note - Text Family is at bedside and is updated on the patient's condition. The patient's mentation has not improved, his liver function continues to decline, he has no sign of renal recovery at this time. They are all agreeable to proceed with comfort care. Hospice will be consulted and comfort care orders initiated. HD will be cancelled.
[2016-10-18] MEDS: MORPHINE SULFATE (100 MG/2 ML) 100 MG in SODIUM CHLORIDE 0.9% 100 ML IV SCH (13:54)
--- NOTE | 2016-10-18 14:23 | P.PN ---
Progress Note - Text Patient continues to be in critical condition he has evidence of multiple organ failure with liver failure, kidney failure, and no signs of any mental activity at this time. Patient was seen by Dr. Rodriguez with family at bedside, and decision was made to proceed with comfort care on the and consult hospice, patient will be transferred out of ICU. Prognosis is terminal.
--- NOTE | 2016-10-18 15:48 | P.PN ---
Subjective This patient is a 81-year-old male who was seen today in the intensive care unit after he suffered a cardiopulmonary arrest on the medical floor yesterday. Patient was intubated and transferred to the intensive care unit. He was sent for a repeat computed tomography scan of the brain yesterday evening which came back negative for any evidence of acute stroke or hemorrhage. He was initially admitted to Hospital with new onset seizure due to subtherapeutic Dilantin level. His repeat Dilantin level today is therapeutic at 13.8. He remains intubated on the ventilator at this time. His urine culture is positive for E. coli and he is on appropriate antibiotics at this time. Patient will have a repeat EEG today for further evaluation of possible anoxic encephalopathy following cardiac arrest. Cardiology was consult for further evaluation. His Coumadin has been placed on hold due to an elevated INR. Patient did receive 2 units of packed red cells for severe anemia today. We are waiting the results of a 2-D echocardiogram. Troponins are being ordered to rule out myocardial infarction. Neurologically he remains intubated and obtunded at this time. We will need to complete his EEG today for further assessment of his anoxic encephalopathy. The patient is showing signs of multiorgan failure. He is scheduled to undergo dialysis today due to renal failure. Serum creatinine prior to hemodialysis today was 3.66. He will likely require hemodialysis tomorrow as well but we will await further recommendations from nephrology. We did review his EEG today which does reveal severe slowing and worsening compared to his previous study that was done yesterday. As noted his Dilantin level did come back therapeutic yesterday at 13.8. and he has had no further seizures. We did discuss his neurological findings today in detail with the patient's daughter at bedside. All of her questions were answered. We will continue supportive care for 48 hours with close monitoring in the ICU. Family will continue to monitor his progress closely in the ICU and will give further instructions to staff based on his progress. We will continue close neurological follow-up with this patient in the intensive care unit. The patient did have a repeat computed tomography scan of the brain done yesterday which fails to reveal any acute changes. No evidence of cerebral edema or acute stroke or hemorrhage. Patient's Dilantin level this morning is therapeutic. Multiple consultants have been seeing the patient including nephrology and pulmonary medicine. They had a discussion with the family today and have updated the on his very poor prognosis. Based on these recommendations the family is now decided to have the patient extubated and to be made comfort care measures only. We did discuss all of these findings in detail with the and family members at bedside. They're in full agreement to have the patient extubated and to continue only with comfort care measures at this time. We did update them on all of his other neurological findings including computed tomography scan brain results as well as his serum Dilantin level. We will continue to follow his progress closely in the intensive care unit. Objective - Vital Signs Vital signs: Vital Signs Temp 99.8 F H 10/18/16 12:00 Pulse 84 10/18/16 13:00 Resp 20 10/18/16 13:00 BP 95/41 10/18/16 13:00 Pulse Ox 100 10/18/16 13:00 Intake & Output 10/17/16 10/18/16 10/18/16 18:59 06:59 18:59 Intake Total 1403 210.0 624.5 Output Total 1000 127 28 Balance 403 83.0 596.5 Weight 93.7 kg 95 kg Intake: IV 475 160 170 Dextrose 5% in Water 1, 345 000 ml @ 75 mls/hr IV . [id number] ERICH with Sodium Bicarb (1 Meq/ml) 150 ml Rx#:[id number] Sodium Chloride 0.9% 1, 80 160 120 000 ml @ 20 mls/hr IV . Q24H ERICH Rx#:[id number] cefTRIAXone 1,000 mg In 50 50 Sodium Chloride 0.9% 50 ml @ 100 mls/hr IVPB Q24HR ERICH Rx#:[id number] Intake, IV Titration 100 50.0 112.5 Amount ACETAMINOPHEN IV (For NPO 100 100 ) 1,000 mg In Empty Bag 1 bag @ 400 mls/hr IVPB Q6HR PRN Rx#:[id number] Piperacillin-Tazobactam 3 50.0 12.5 .375 gm In Dextrose/Water 1 50ml.bag @ 12.5 mls/hr IVPB Q12H ERICH Rx#: [id number] Tube Feeding 188 282 Blood Product 640 Rc As-1 Unit 310 [id number] Rc As-1 Unit 310 [id number] Other 60 Output: Urine 0 127 28 Other 1000 Other: Voiding Method Indwelling Catheter Indwelling Catheter Indwelling Catheter # Voids 0 - Exam Physical examination: PHYSICAL EXAMINATION: Patient is resting comfortably in bed. Patient is intubated on the ventilator in the ICU. VITAL SIGNS: Blood pressure is [95/41]. Heart rate is [84]. Respiration is [20] . Temperature is [99.8]. HEENT: Head is atraumatic, neck is supple, there were no carotid bruits. CHEST: Lungs are clear to auscultation and percussion. CARDIAC: S1, S2 normal rate and rhythm. There is no murmur. ABDOMEN: Soft and nontender. Bowel sounds are present. EXTREMITIES: There is no pedal edema. Peripheral pulses are present. Neurological examination: Patient was extubated this morning. He is on a nonrebreather mask. He does withdraw to painful stimuli. Pupils are 2 mm sluggishly reactive to light. Corneal response diminished bilaterally. Patient does seem to have mild disconjugate eye gaze. Patient withdraws to painful stimuli and nail bed pressure. Deep tendon reflexes are hypoactive 1+. Plantar response is flexor bilaterally. - Labs CBC & Chem 7: 10/18/16 05:10 10/18/16 05:10 Labs: Abnormal Lab Results - Last 24 Hours (Table) 10/17/16 10/17/16 10/17/16 Range/Units 14:57 17:34 23:17 WBC (3.8-10.6) k/uL RBC (4.30-5.90) m/uL Hgb (13.0-17.5) gm/dL Hct (39.0-53.0) % MCV (80.0-100.0) fL RDW (11.5-15.5) % Plt Count (150-450) k/uL Neutrophils # (Manual) (1.3-7.7) k/uL Lymphocytes # (Manual) (1.0-4.8) k/uL Monocytes # (Manual) (0-1.0) k/uL Nucleated RBCs (0-0) /100 WBC PT (9.0-12.0) sec BUN (9-20) mg/dL Creatinine (0.66-1.25) mg/dL Glucose (74-99) mg/dL POC Glucose (mg/dL) 178 H 181 H 245 H (75-99) mg/dL Calcium (8.4-10.2) mg/dL Phosphorus (2.5-4.5) mg/dL Total Bilirubin (0.2-1.3) mg/dL AST (17-59) U/L ALT (21-72) U/L Alkaline Phosphatase (38-126) U/L Total Protein (6.3-8.2) g/dL Albumin (3.5-5.0) g/dL 10/18/16 10/18/16 10/18/16 Range/Units 00:26 05:10 05:10 WBC 35.0 H* (3.8-10.6) k/uL RBC 2.75 L (4.30-5.90) m/uL Hgb 8.8 L D (13.0-17.5) gm/dL Hct 27.7 L (39.0-53.0) % MCV 100.8 H (80.0-100.0) fL RDW 22.8 H (11.5-15.5) % Plt Count 109 L (150-450) k/uL Neutrophils # (Manual) 28.4 H (1.3-7.7) k/uL Lymphocytes # (Manual) 0.7 L (1.0-4.8) k/uL Monocytes # (Manual) 2.5 H (0-1.0) k/uL Nucleated RBCs 1 H (0-0) /100 WBC PT (9.0-12.0) sec BUN (9-20) mg/dL Creatinine (0.66-1.25) mg/dL Glucose (74-99) mg/dL POC Glucose (mg/dL) 254 H (75-99) mg/dL Calcium (8.4-10.2) mg/dL Phosphorus 5.2 H (2.5-4.5) mg/dL Total Bilirubin (0.2-1.3) mg/dL AST (17-59) U/L ALT (21-72) U/L Alkaline Phosphatase (38-126) U/L Total Protein (6.3-8.2) g/dL Albumin (3.5-5.0) g/dL 10/18/16 10/18/16 10/18/16 Range/Units 05:10 05:10 05:36 WBC (3.8-10.6) k/uL RBC (4.30-5.90) m/uL Hgb (13.0-17.5) gm/dL Hct (39.0-53.0) % MCV (80.0-100.0) fL RDW (11.5-15.5) % Plt Count (150-450) k/uL Neutrophils # (Manual) (1.3-7.7) k/uL Lymphocytes # (Manual) (1.0-4.8) k/uL Monocytes # (Manual) (0-1.0) k/uL Nucleated RBCs (0-0) /100 WBC PT 17.4 H (9.0-12.0) sec BUN 85 H* (9-20) mg/dL Creatinine 3.12 H (0.66-1.25) mg/dL Glucose 165 H (74-99) mg/dL POC Glucose (mg/dL) 181 H (75-99) mg/dL Calcium 7.6 L (8.4-10.2) mg/dL Phosphorus (2.5-4.5) mg/dL Total Bilirubin 1.6 H (0.2-1.3) mg/dL AST 1452 H (17-59) U/L ALT 643 H (21-72) U/L Alkaline Phosphatase 151 H (38-126) U/L Total Protein 4.8 L (6.3-8.2) g/dL Albumin 2.5 L (3.5-5.0) g/dL 10/18/16 Range/Units 11:50 WBC (3.8-10.6) k/uL RBC (4.30-5.90) m/uL Hgb (13.0-17.5) gm/dL Hct (39.0-53.0) % MCV (80.0-100.0) fL RDW (11.5-15.5) % Plt Count (150-450) k/uL Neutrophils # (Manual) (1.3-7.7) k/uL Lymphocytes # (Manual) (1.0-4.8) k/uL Monocytes # (Manual) (0-1.0) k/uL Nucleated RBCs (0-0) /100 WBC PT (9.0-12.0) sec BUN (9-20) mg/dL Creatinine (0.66-1.25) mg/dL Glucose (74-99) mg/dL POC Glucose (mg/dL) 186 H (75-99) mg/dL Calcium (8.4-10.2) mg/dL Phosphorus (2.5-4.5) mg/dL Total Bilirubin (0.2-1.3) mg/dL AST (17-59) U/L ALT (21-72) U/L Alkaline Phosphatase (38-126) U/L Total Protein (6.3-8.2) g/dL Albumin (3.5-5.0) g/dL Microbiology - Last 24 Hours (Table) 10/15/16 21:30 Urine Culture - Final Urine,Catheterized Pseudomonas aeruginosa 10/15/16 19:35 Blood Culture - Preliminary Blood No Growth after 48 hours 10/15/16 19:27 Blood Culture - Preliminary Blood No Growth after 48 hours 10/15/16 19:33 Gram Stain - Final Sputum Sputum Culture - Final Assessment and Plan (1) Cardiopulmonary arrest Status: Acute Code(s): I46.9 - CARDIAC ARREST, CAUSE UNSPECIFIED (2) Breakthrough seizure Status: Acute Code(s): G40.919 - EPILEPSY, UNSP, INTRACTABLE, WITHOUT STATUS EPILEPTICUS Plan: This patient is a 81-year-old male who had a cardiopulmonary arrest yesterday on the medical floor. He was intubated and transferred to the ICU yesterday. He underwent a computed tomography scan of the brain yesterday which failed to reveal any acute changes. He had an EEG today which was reviewed and is consistent with a severe anoxic encephalopathy with no seizure activity noted. He is showing very little improvement in his neurological status on examination today. His case was discussed at length with the patient's daughter at bedside. He does have evidence of worsening neurological status as compared to yesterday. Family would like to continue all treatment measures at this time with all supportive care. We will continue to monitor his neurological status closely in the ICU. We may want to repeat an EEG in 24-48 hours depending on his progress. The daughter will update her mother the patient's in terms of his overall condition at this time in the ICU. The ICU nursing staff did update the patient's today at bedside. She is aware of his ongoing continued poor prognosis. He has been made DO NOT RESUSCITATE status. He is scheduled to have a repeat computed tomography scan of the brain today and we will await those results. We will recheck a Dilantin level tomorrow morning and adjust the dose as needed. We will continue close monitoring of the patient. He is showing signs of multiorgan failure and will be undergoing hemodialysis today. His serum creatinine prior to dialysis today was 3.66. Nephrology is monitoring his condition closely as well. He continues to demonstrate evidence of multiorgan failure. Patient underwent repeat computed tomography scan of the brain yesterday which failed to reveal any new changes. No evidence of cerebral edema or hemorrhage. Patient's Dilantin level today is therapeutic at 15.4. He is to have hemodialysis today as well due to renal failure. Several specialists have been following the patient during his admission to the ICU. They did have a discussion today with his and family members. The family is now made a decision to have the patient extubated with comfort care measures only. We are in agreement and we will continue to follow his progress closely in the intensive care unit. His overall prognosis at this time remains very guarded. We willl continue monitor his neurological status and progress closely in the intensive care unit.
[2016-10-19 04:28] VITALS: RESP 10
[2016-10-19] MEDS: MORPHINE SULFATE (100 MG/2 ML) 100 MG in SODIUM CHLORIDE 0.9% 100 ML IV SCH ×4 (05:07→18:46)
[2016-10-19] MEDS ORDERED: HEPARIN SODIUM,PORCINE 5,000 UNIT/ML 1 ML VIAL ONE ×2 (08:00→18:30)
[2016-10-19] MEDS: LORazepam 2 MG/ML SYRINGE IV PRN ×2 (11:12→15:07)
--- NOTE | 2016-10-19 11:48 | P.PN ---
Subjective This patient is a 81-year-old male was initially admitted for breakthrough seizure activity. He was noted to have subtherapeutic Dilantin level initially on admission. Unfortunately patient had a cardiopulmonary arrest and was transferred to the intensive care unit where he remained for several days. Yesterday after a long discussion with the admitting staff and multiple consultants the family has decided to make the patient comfort care measures. He was extubated yesterday and is now transferred to the medical floor. The patient is completely comfort care at this time. His overall prognosis at this time remains very guarded. Objective - Vital Signs Vital signs: Vital Signs Temp 98.0 F 10/19/16 07:00 Pulse 80 10/19/16 08:00 Resp 10 L 10/19/16 08:00 BP 105/69 10/19/16 07:00 Pulse Ox 98 10/19/16 07:00 Intake & Output 10/18/16 10/19/16 10/19/16 18:59 06:59 18:59 Intake Total 709.052 80.478 36.618 Output Total 28 0 Balance 681.052 80.478 36.618 Weight 95 kg 95 kg Intake: IV 200 Sodium Chloride 0.9% 1, 150 000 ml @ 20 mls/hr IV . Q24H ERICH Rx#:[id number] cefTRIAXone 1,000 mg In 50 Sodium Chloride 0.9% 50 ml @ 100 mls/hr IVPB Q24HR ERCIH Rx#:[id number] Intake, IV Titration 131.052 80.478 36.618 Amount ACETAMINOPHEN IV (For NPO 100 ) 1,000 mg In Empty Bag 1 bag @ 400 mls/hr IVPB Q6HR PRN Rx#:[id number] Morphine Sulfate 100 mg 6.052 80.478 36.618 In Sodium Chloride 0.9% 100 ml @ 1 MG/HR 1.02 mls /hr IV .Q24H ERICH Rx#: [id number] Piperacillin-Tazobactam 3 25.0 .375 gm In Dextrose/Water 1 50ml.bag @ 12.5 mls/hr IVPB Q12H ERICH Rx#: [id number] Oral 0 Tube Feeding 318 Other 60 Output: Urine 28 0 Other: Voiding Method Indwelling Catheter Indwelling Catheter Indwelling Catheter # Voids 0 0 0 - Exam Physical examination: PHYSICAL EXAMINATION: Patient is resting comfortably in bed. Patient is semicomatose. There is no evidence of any seizure activity. VITAL SIGNS: Blood pressure is [105/69]. Heart rate is [80]. Respiration is [10] . Temperature is [98.0]. HEENT: Head is atraumatic, neck is supple, there were no carotid bruits. CHEST: Lungs are clear to auscultation and percussion. CARDIAC: S1, S2 normal rate and rhythm. There is no murmur. ABDOMEN: Soft and nontender. Bowel sounds are present. EXTREMITIES: There is no pedal edema. Peripheral pulses are present. Neurological examination: Patient has been made comfort care measures only. He remains semicomatose. - Labs CBC & Chem 7: 10/18/16 05:10 10/18/16 05:10 Labs: Abnormal Lab Results - Last 24 Hours (Table) 10/18/16 Range/Units 11:50 POC Glucose (mg/dL) 186 H (75-99) mg/dL Microbiology - Last 24 Hours (Table) 10/18/16 13:10 Blood Culture Gram Stain - Preliminary Blood 10/18/16 13:10 Blood Culture - Preliminary Blood 10/15/16 19:35 Blood Culture - Preliminary Blood No Growth after 72 hours 10/15/16 19:27 Blood Culture - Preliminary Blood No Growth after 72 hours 10/15/16 21:30 Urine Culture - Final Urine,Catheterized Pseudomonas aeruginosa Assessment and Plan (1) Cardiopulmonary arrest Status: Acute Code(s): I46.9 - CARDIAC ARREST, CAUSE UNSPECIFIED (2) Breakthrough seizure Status: Acute Code(s): G40.919 - EPILEPSY, UNSP, INTRACTABLE, WITHOUT STATUS EPILEPTICUS Plan: Patient was transferred out of the intensive care unit yesterday and is been made comfort care measures only. He remains semicomatose. Neurologically no significant changes or improvement. His overall prognosis remains very guarded. Family is aware of his very poor prognosis. We will see the patient only on when necessary basis as needed.
[2016-10-19] MEDS: MORPHINE SULFATE 2 MG/ML SYRINGE IVP PRN (13:22)
--- NOTE | 2016-10-19 15:26 | P.PN ---
Progress Note - Text Patient transferred yesterday to medical floor he was started on comfort care only Today he is an responsive he is having slow breathing was crackles Family was counseled again in regard to use of hospice for terminal care, apparently they had some disagreement with the [employer] worker that they saw yesterday they were requesting a different hospice company at this time will consult [facility] Clinically patient is in terminal condition.
[2016-10-19 15:43] VITALS: BP 110/54; PULSE 112; TEMP 101.4
[2016-10-19] MEDS: SODIUM CHLORIDE 0.9% 1,000 ML IV SCH (18:40)
== END 2016-10-19 20:01 | disposition hospice, inpatient (51) | DRG 100 ==
LOC: EC 05:49 → 5ONC 08:24 → 6ICU 10-15 16:25 → 4MS4W 10-18 17:53
PROVIDERS: ADMIT Internal Medicine; ATTEND Internal Medicine
PROC: 3E0234Z Introduction of Serum, Toxoid and Vaccine into Muscle, Percutaneous Approach (ICD-10-PCS; 2016-10-14)
PROC: 30233N1 Transfusion of Nonautologous Red Blood Cells into Peripheral Vein, Percutaneous Approach (ICD-10-PCS; 2016-10-14)
PROC: 0BH17EZ Insertion of Endotracheal Airway into Trachea, Via Natural or Artificial Opening (ICD-10-PCS; principal; 2016-10-15)
PROC: 5A12012 Performance of Cardiac Output, Single, Manual (ICD-10-PCS; 2016-10-15)
PROC: 5A1945Z Respiratory Ventilation, 24-96 Consecutive Hours (ICD-10-PCS; 2016-10-15)
PROC: 0D9670Z Drainage of Stomach with Drainage Device, Via Natural or Artificial Opening (ICD-10-PCS; 2016-10-15)
PROC: 30233L1 Transfusion of Nonautologous Fresh Plasma into Peripheral Vein, Percutaneous Approach (ICD-10-PCS; 2016-10-16)
PROC: 5A1D60Z (ICD-10-PCS; 2016-10-16)
PROC: 06HM33Z Insertion of Infusion Device into Right Femoral Vein, Percutaneous Approach (ICD-10-PCS; 2016-10-16)
DX: G40.419 Other generalized epilepsy and epileptic syndromes, intractable, without status epilepticus (principal); I46.9 Cardiac arrest, cause unspecified; J96.01 Acute respiratory failure with hypoxia; K72.00 Acute and subacute hepatic failure without coma; I21.4 Non-ST elevation (NSTEMI) myocardial infarction; I49.01 Ventricular fibrillation; N17.0 Acute kidney failure with tubular necrosis; G92 Toxic encephalopathy; I47.2 Ventricular tachycardia; I50.9 Heart failure, unspecified; Z23 Encounter for immunization; N18.4 Chronic kidney disease, stage 4 (severe); D75.81 Myelofibrosis; I13.0 Hypertensive heart and chronic kidney disease with heart failure and stage 1 through stage 4 chronic kidney disease, or unspecified chronic kidney disease; G93.1 Anoxic brain damage, not elsewhere classified; E87.2 Acidosis; N39.0 Urinary tract infection, site not specified; R18.8 Other ascites; E87.5 Hyperkalemia; E11.22 Type 2 diabetes mellitus with diabetic chronic kidney disease; I48.2 Chronic atrial fibrillation; D50.0 Iron deficiency anemia secondary to blood loss (chronic); D63.1 Anemia in chronic kidney disease; B96.5 Pseudomonas (aeruginosa) (mallei) (pseudomallei) as the cause of diseases classified elsewhere; E78.5 Hyperlipidemia, unspecified; I25.10 Atherosclerotic heart disease of native coronary artery without angina pectoris; K21.9 Gastro-esophageal reflux disease without esophagitis; F41.9 Anxiety disorder, unspecified; D47.3 Essential (hemorrhagic) thrombocythemia; Z51.5 Encounter for palliative care; Z66 Do not resuscitate; N42.9 Disorder of prostate, unspecified; M19.91 Primary osteoarthritis, unspecified site; I27.2 Other secondary pulmonary hypertension; Z99.2 Dependence on renal dialysis; Z95.2 Presence of prosthetic heart valve; Z86.73 Personal history of transient ischemic attack (TIA), and cerebral infarction without residual deficits; Z95.0 Presence of cardiac pacemaker; Z96.1 Presence of intraocular lens; Z79.01 Long term (current) use of anticoagulants; Z79.82 Long term (current) use of aspirin; Z79.4 Long term (current) use of insulin; Z79.899 Other long term (current) drug therapy
CPT/HCPCS: 36415; 36600; 70450; 71010; 72125; 73502; 80048; 80053; 80076; 80185; 80306; 81001; 82550; 82553; 82805; 83036; 83605; 83735; 83880; 84100; 84132; 84443; 84484; 85025; 85027; 85610; 85730; 86704; 86706; 86850; 86900; 86901; 86920; 87040; 87070; 87077; 87086; 87186; 87205; 87340; 90471; 90715; 90935; 93005; 93306; 94002; 94003; 94640; 95816; 96361; 96365; 99285

== ENCOUNTER 2016-10-19 20:04 | Inpatient (IN) | payer OTHER ==
[2016-10-19] MEDS ORDERED: LORazepam 2 MG/ML SYRINGE IV PRN (20:05)
[2016-10-19] MEDS ORDERED: MORPHINE SULFATE 100 MG in SODIUM CHLORIDE 0.9% 100 ML IV SCH (20:05)
[2016-10-19] MEDS ORDERED: MORPHINE SULFATE 2 MG/ML SYRINGE IVP PRN (20:05)
[2016-10-19] MEDS ORDERED: SCOPOLAMINE 1.5MG/72HR PATCH TRANSDERM SCH (20:05)
--- NOTE | 2016-11-17 15:32 | P.DS ---
Providers Date of admission: 10/19/16 20:04 Expected date of discharge: 10/19/16 Attending physician: Jake Jaramillo Primary care physician: Jake Jaramillo [place] [facility] Course: Discharge diagnosis Preliminary cause of cardiopulmonary arrest and multiorgan failure 1. Breakthrough Seizure with known history of seizure disorder 2. Cardiac arrest with prolonged code. Patient required to be intubated and maintained on mechanical ventilation 3. Chronic kidney disease stage IV 4. Acute kidney injury due to hypotension and hypoperfusion from the cardiac arrest. Patient did require to be started on hemodialysis 5. Severe pulmonary hypertension with bilateral lower extremity edema and ascites with out any clear evidence of liver disease 6. Myelofibrosis 7. Cardiac arrhythmias with permanent pacemaker 8. Anoxic encephalopathy 9. Multiorgan failure 10. Acute hypoxic respiratory failure 11. Shock liver Hospital course This is a 81-year-old male who was brought into the hospital after having a breakthrough seizure. He was found to have a low Dilantin level. Neurology was consulted. He had a computed tomography scan of the head and cervical spine with no evidence of any acute fracture or intracranial bleeding. Patient got extra doses of IV Dilantin. During the admission patient went into a cardiopulmonary arrest. He required to be intubated and transferred to the ICU. He was in a prolonged code. He will underwent a computed tomography scan of the brain that did not show any acute changes. EEG was consistent with a severe anoxic encephalopathy with no seizure activity. Pulmonary service and cardiology were consulted. Also patient was having worsening kidney function due to the hypoperfusion of the kidneys after the cardiac arrest. he required to be started on dialysis. Patient's overall prognosis is very poor and guarded. Patient's did not show any improvement. Renal function was still poor even after dialysis. Patient's CODE STATUS was changed to a DO NOT RESUSCITATE. And patient was not responding to aggressive medical management. It was then discussed place patient on comfort care and hospice. Patient was placed on hospice 10/18/2016. He then on 10/19/2016. Please refer to chart for any further details. Plan - Discharge Summary Discharge Medication List Dutasteride [Avodart] 0.5 mg PO QAM 04/05/15 [History] Tamsulosin HCl [Flomax] 0.4 mg PO HS 04/05/15 [History] Atorvastatin [Lipitor] 10 mg PO HS #90 tab 04/26/15 [Rx] Phenytoin Sodium Extended [Dilantin] 200 mg PO BID 05/29/15 [History] hydrALAZINE HCL [Apresoline] 100 mg PO TID 12/06/15 [History] Metolazone 5 mg PO BID@0800,1200 01/18/16 [History] Acetaminophen [Tylenol] 1,000 mg PO Q6H PRN 08/27/16 [History] Allopurinol [Zyloprim] 100 mg PO DAILY 08/27/16 [History] Bio-D Mulsion Forte 1 drop PO DAILY 08/27/16 [History] Insulin NPH/Reg Insulin 70/30 [humuLIN 70/30 VIAL] See Protocol SQ AC-BID [History] Levothyroxine Sodium [Synthroid] 250 mcg PO DAILY 08/27/16 [History] Metoprolol Tartrate [Lopressor] 25 mg PO DAILY 08/27/16 [History] Sertraline [Zoloft] 25 mg PO HS PRN 08/27/16 [History] Sodium Bicarbonate 325 mg PO DAILY 08/27/16 [History] Aspirin EC [Ecotrin Low Dose] 81 mg PO DAILY 09/01/16 [History] Valsartan 40 mg PO DAILY 09/01/16 [History] Warfarin [Coumadin] 5 mg PO [id number] 09/01/16 [History] ALPRAZolam [Xanax] 0.25 mg PO HS PRN 10/14/16 [History] Famotidine [Pepcid] 40 mg PO BID 10/14/16 [History] Furosemide [Lasix] 60 mg PO BID 10/14/16 [History] Insulin NPH/Reg Insulin 70/30 [humuLIN 70/30 VIAL] 6 unit SQ AC-LUNCH 10/14/16 [ History] Warfarin [Coumadin] 7.5 mg PO MOTH 10/14/16 [History] clonazePAM [KlonoPIN] 0.5 mg PO HS PRN 10/14/16 [History] Discharge Disposition: - Preliminary Cause of Preliminary Cause of : Cardiopulmonary arrest and multiorgan failure
== END 2016-10-19 22:50 | disposition expired | DRG 100 ==
LOC: 4MS4W 20:04
PROVIDERS: ADMIT Internal Medicine; ATTEND Internal Medicine
DX: G40.909 Epilepsy, unspecified, not intractable, without status epilepticus (principal); J96.01 Acute respiratory failure with hypoxia; K72.00 Acute and subacute hepatic failure without coma; G93.1 Anoxic brain damage, not elsewhere classified; D75.81 Myelofibrosis; I46.9 Cardiac arrest, cause unspecified; R18.8 Other ascites; N17.9 Acute kidney failure, unspecified; N18.4 Chronic kidney disease, stage 4 (severe); I13.0 Hypertensive heart and chronic kidney disease with heart failure and stage 1 through stage 4 chronic kidney disease, or unspecified chronic kidney disease; I95.9 Hypotension, unspecified; I50.9 Heart failure, unspecified; D69.6 Thrombocytopenia, unspecified; I27.2 Other secondary pulmonary hypertension; I48.91 Unspecified atrial fibrillation; I25.10 Atherosclerotic heart disease of native coronary artery without angina pectoris; E11.9 Type 2 diabetes mellitus without complications; F41.9 Anxiety disorder, unspecified; K21.9 Gastro-esophageal reflux disease without esophagitis; E78.5 Hyperlipidemia, unspecified; M19.90 Unspecified osteoarthritis, unspecified site; D63.1 Anemia in chronic kidney disease; D72.829 Elevated white blood cell count, unspecified; F40.240 Claustrophobia; Z95.0 Presence of cardiac pacemaker; Z79.01 Long term (current) use of anticoagulants; Z79.82 Long term (current) use of aspirin; Z79.4 Long term (current) use of insulin; Z79.899 Other long term (current) drug therapy; Z51.5 Encounter for palliative care; Z95.2 Presence of prosthetic heart valve; W08.XXXA Fall from other furniture, initial encounter; Y92.9 Unspecified place or not applicable